=== PATIENT | female | born 1950 | race Caucasian/White ===

== ENCOUNTER 2018-06-13 01:25 | Outpatient (CLI) | payer MEDICARE, OTHER, SELFPAY ==
--- NOTE | 2018-06-13 08:47 | DI.MAMMO_ITS ---
SYMPTOM/DIAGNOSIS: SCREENING, Z13.9 MAMMOGRAMS: Mammograms were interpreted according to the usual protocol including computer analysis with CAD system, tomosynthesis and C view imaging. Comparison is made with exams from 6315-2213. The breasts are composed of scattered fibroglandular densities. No suspicious masses or suspicious microcalcifications are seen. There has been no significant change. IMPRESSION: Category 1B, negative mammogram. Routine screening is recommended. SA ASSESSMENT OF FINDINGS: Negative. Category 1. Patient will receive a letter notifying them of these results. BI-RADS category B. There are scattered areas of fibroglandular density.
== END 2018-06-13 01:45 ==
PROVIDERS: PCP Nurse Practitioner Family; Visit Provider Nurse Practitioner Family
DX: Z12.31 Encounter for screening mammogram for malignant neoplasm of breast (principal)
CPT/HCPCS: 77063; 77067

== ENCOUNTER 2018-06-19 10:30 | Outpatient (REF) | payer MEDICARE, OTHER, SELFPAY ==
--- NOTE | 2018-06-19 09:15 | SKI_PTH ---
PATIENT: La Watson LOC: [facility] U#:[id number] AGE/SX: 68/F ROOM: RE06/19/[address]: Marina Yi : 1950 BED: DIS: 06/19/2018 SPEC #: [id number] RECD: 06/19/18 13:03 STATUS: DAWN MENDEZ #: [id number] KAYLIN: 06/19/18 09:[address]: Marina Yi DEPT: Surgical Specimen RECD BY: Flor Cadena Tissues: 1 - SKIN BIOPSY(SHAVE/PUNCH) Procedures: SKIN LEVEL 4 Comments: [id number]
== END 2018-06-19 10:50 ==
LOC: NCHCN 10:30
PROVIDERS: PCP Nurse Practitioner Family; Visit Provider Nurse Practitioner Family
DX: L43.8 Other lichen planus (principal)
CPT/HCPCS: 88305

== ENCOUNTER 2018-07-23 12:10 | Outpatient (CLI) | payer MEDICARE, OTHER, SELFPAY ==
--- NOTE | 2018-07-23 12:56 | DI.RAD_ITS ---
SYMPTOMS/DIAGNOSIS: ACUTE LOW BACK PAIN, M54.5 LUMBAR SPINE: AP, lateral and bilateral oblique views of the lumbar spine were obtained. There are five lumbar type vertebral bodies. There is normal alignment. No spondylolysis or spondylolisthesis is seen. There is mild disc space narrowing at L 1 - 2 and L 2 - 3. Endplate osteophytes are present throughout the lumbar spine. No acute fractures or subluxations are seen. There are degenerative changes of the facets seen at L 4 - 5 and L 5 - S 1. IMPRESSION: Moderate degenerative changes in the lumbar spine.
== END 2018-07-23 12:30 ==
PROVIDERS: PCP Nurse Practitioner Family; Visit Provider Internal Medicine
DX: M54.5 Low back pain (principal); M47.816 Spondylosis without myelopathy or radiculopathy, lumbar region
CPT/HCPCS: 72110

== ENCOUNTER 2018-08-30 12:57 | Outpatient (REF) | payer OTHER, SELFPAY ==
[2018-08-30 21:37] LABS: ALT 20 U/L (12-78); AST 15 U/L (15-37); Albumin 3.6 g/dL (3.4-5.0); Alkaline Phosphatase 84 U/L (46-116); Anion Gap 11.1 mmol/L (3-11); BUN 18 mg/dL (7-18); Bilirubin, Total 0.7 mg/dL (0.2-1.0); CO2 25.9 mmol/L (21.0-32.0); CREATININE 0.69 mg/dL (0.55-1.02); Calcium 9.6 mg/dL (8.5-10.1); Chloride 100 mmol/L (98-107); Glucose 179 mg/dL (70-100); Potassium 4.8 mmol/L (3.5-5.1); Sodium 137 mmol/L (136-145); Total Protein 6.9 g/dL (6.4-8.2)
== END 2018-08-30 13:17 ==
LOC: NCHCN 12:57
PROVIDERS: PCP Nurse Practitioner Family; Visit Provider Nurse Practitioner Family
DX: R19.7 Diarrhea, unspecified (principal); E07.89 Other specified disorders of thyroid; E11.9 Type 2 diabetes mellitus without complications; M47.9 Spondylosis, unspecified; E78.5 Hyperlipidemia, unspecified; G43.109 Migraine with aura, not intractable, without status migrainosus
CPT/HCPCS: 80053

== ENCOUNTER 2019-01-24 08:01 | Emergency (ER) | payer OTHER, SELFPAY ==
[2019-01-24 08:11] VITALS: BP 129/57; PULSE 71; RESP 18; TEMP 36.6; O2SAT 98
[2019-01-24 08:34] LABS: Bilirubin Negative (Negative); Blood Negative (Negative); Clarity Clear; Glucose Negative (Negative); Ketones Negative (Negative); Leukocyte Esterase Negative (Negative); Nitrite Negative (Negative); Specific Gravity 1.025 (1.005-1.025); Urobilinogen 0.2 EU/dL (Up TO 0.2); pH 5.5 (5-8)
--- NOTE | 2019-01-24 08:42 | ED.GENADUL_ITS ---
Discharge Plan Disposition Patient Disposition: HOME Condition: Stable Discharge Details Chief Complaint: Abd Prob Clinical Impression: Abdominal pain Primary Care Provider: Marina Yi ED Provider: Moe Helms Home Meds and New Rx's Prescriptions: No Action aspirin [Aspir-81] 81 MG tablet,delayed release (DR/EC) 81 mg PO DAILY RF: 0 multivitamin [Multi-Day] 1 EACH tablet RF: 0 ibuprofen 600 MG tablet 600 mg PO Q6H PRN PRN (Reason: Pain) Qty: 25 RF: 0 vitamin E 400 unit Capsule 400 unit PO DAILY RF: 0 enalapril maleate 5 mg Tablet 5 mg PO DAILY RF: 0 glipizide 10 mg Tablet 10 mg PO BID RF: 0 cyanocobalamin (vitamin B-12) [Vitamin B-12] 1,000 mcg Tablet 1,000 mcg PO DAILY RF: 0 calcium carbonate [Calcium 500] 500 mg calcium (1,250 mg) Tablet 500 mg PO DAILY RF: 0 metformin 1,000 mg Tablet 1,000 mg PO BID RF: 0 lovastatin 20 mg Tablet 20 mg PO DAILY RF: 0 cholecalciferol (vitamin D3) [Vitamin D3] 1,000 unit Capsule 1,000 unit PO DAILY RF: 0 Discharge Instructions Instructions: Abdominal Pain (ED) Additional Instructions: Your cat scan and lab work did not show any concerning findings. You did have lung nodules which your primary care provider should be made aware of this as you should have future imaging you can take 1000mg tylenol and 600mg ibuprofen every 6 hours for pain as needed if you have severe worsening pain, pain in the upper abdomen or persistent vomit return to the emergency department Medical Decision Making 68 yo female with hx of DM, hld, who comes in with 2 weeks of llq and was tx'd with cipro/flagyl which she finished on 01/19 and despite this pain continues so came here. Denies fevers, recent travel, has had loose stools this entire time. She has tenderness with mild guarding in llq without pain elsehwere. No hemorrhoids on rectal exam, has mild erythema around rectal opening that she has been using desytn for and appers likely due to diarrhea, doubt cellulitis. Given continued pain will obtain labs and imaging to eval for abscess vs continued diverticulitis labs unremarkable, ct shows no acute findings, nonemergent findings of lung nodule, diverticula and gallstones per Dr. Mcintosh. She remains stable, pain has improved, mild llq pain. Advised f/u with pcp and return precautions given. pt was given ceftriaxone by mistake this was supposed to be for a different patient, no indication for continued abx. Differential Diagnosis diverticulitis, colitis, pancreatitis Imaging Data Radiologic Study: Attestation: I personally reviewed and interpreted this imaging study as follows: Imaging: CT Scan Radiologist's impression: no acute findings Lab Data Lab results reviewed: Yes I reviewed the patient's lab results. HPI General Mode of arrival: ambulatory . Date/Time Provider Initiated Documentation: 01/24/19 08:14 . Limitations to Documentation: no limitations . Information obtained by: patient . History of Present Illness 68 year old F presents to the emergency department with the chief complaint of left lower abdominal pain, described as moderate, Quality is described as stabbing, and is localized to the abdomen. Patient reports no radiation. Patient started experiencing this week(s) (2) and it has been constant. No relieving factors improve symptom(s), No exacerbating factors reported . Patient notes other (loose stools). Patient did receive the following treatments prior to arrival, none Related Data Home Medications Medication Instructions Recorded Confirmed aspirin [Aspir-81] 81 mg PO DAILY 07/12/14 01/24/19 ibuprofen 600 mg PO Q6H PRN PRN #25 tablet 01/06/16 multivitamin [Multi-Day Vitamins] 01/06/16 calcium carbonate [Calcium 500] 500 mg PO DAILY 01/24/19 01/24/19 cholecalciferol (vitamin D3) 1,000 unit PO DAILY 01/24/19 01/24/19 [Vitamin D3] cyanocobalamin (vitamin B-12) 1,000 mcg PO DAILY 01/24/19 01/24/19 [Vitamin B-12] enalapril maleate 5 mg PO DAILY 01/24/19 01/24/19 glipizide 10 mg PO BID 01/24/19 01/24/19 lovastatin 20 mg PO DAILY 01/24/19 01/24/19 metformin 1,000 mg PO BID 01/24/19 01/24/19 vitamin E 400 unit PO DAILY 01/24/19 01/24/19 Previous Rx's Medication Instructions Recorded ibuprofen 600 mg PO Q6H PRN PRN #25 tablet 01/06/16 Allergies Allergy/AdvReac Type Severity Reaction Status Date / Time meperidine HCl [From Demerol] Allergy Severe Pt states Unverified 01/24/19 08:24 caused hospitalization lisinopril AdvReac Intermediate cough Unverified 01/24/19 08:24 General Stated Complaint: Abd Prob JOE: 3 Review of Systems Review of Systems All systems reviewed & are unremarkable except as noted in HPI and below Constitutional Denies chills, Denies fever(s) and Denies weakness Cardiovascular Denies chest pain and Denies dyspnea Respiratory Denies cough and Denies dyspnea Gastrointestinal Denies nausea and Denies vomiting Musculoskeletal Denies joint swelling Neurologic Denies weakness PFSH Social History Smoking/Tobacco Use Status: Never Alcohol Intake: never Drug use: Never Do you feel safe at home: Yes Do you feel safe in your relationship?: Yes Exam Const General: no acute distress Orientation: alert HENMT Head: normal to inspection Ears: external ears normal General nose exam: external nose normal Mouth: moist mucous membranes Eyes General: appearance normal, both eyes and all related structures Neck Neck: normal visual inspection Resp Effort & Inspection: normal respiratory effort and able to speak in complete sentences Cardio Rate: regular rate GI Palpation: soft Skin General skin exam: no rashes or lesions noted Neuro General: alert and oriented x3 Extrem General: normal to inspection Psych Mental Status: mental status grossly normal Course Vital Signs Temperature 36.6 C 01/24/19 08:11 Pulse 71 01/24/19 08:11 Respiratory Rate 18 01/24/19 08:11 Blood Pressure 129/57 L 01/24/19 08:11 Pulse Oximetry 98 01/24/19 08:11 Temperature 36.6 C 01/24/19 08:11 Temperature Source Temporal Artery Scan 01/24/19 08:11 Pulse 71 01/24/19 08:11 Respiratory Rate 18 01/24/19 08:11 Respiratory Effort Non-Labored 01/24/19 08:19 Blood Pressure 129/57 L 01/24/19 08:11 Blood Pressure Position Supine 01/24/19 08:11 Pulse Oximetry 98 01/24/19 08:11 Oxygen Delivery Method Room Air 01/24/19 08:11 Oxygen Flow Rate 0 01/24/19 08:11 Pain Level 7 01/24/19 08:11 Lab/Test Results Lab/Test Results: Laboratory Tests Range/Units 01/24/19 08:25 Urine Color (Yellow) Yellow Urine Clarity Clear Urine pH (5-8) 5.5 Ur Specific [place] (1.005-1.025) 1.025 Urine Protein (Negative) mg/dL Negative Urine Ketones (Negative) mg/dL Negative Urine Blood (Negative) Negative Urine Nitrite (Negative) Negative Urine Bilirubin (Negative) Negative Urine Urobilinogen (Up TO 0.2) EU/dL 0.2 Ur Leukocyte Esterase (Negative) Negative Urine Glucose (Negative) mg/dL Negative
[2019-01-24] MEDS: Normal Saline 1,000 ML 1000 ML IV (09:00)
[2019-01-24] MEDS: Ketorolac 15 MG/ML VIAL IVP (09:06)
[2019-01-24] MEDS: cefTRIAXone 2 GM/50 ML BAG IVPB (09:08)
[2019-01-24 09:10] LABS: Abs Immature Grans 0.01 k/cumm (0.0-0.09); Absolute Basophil Count 0.06 k/cumm (0.0-0.2); Absolute Eosinophil Count 0.23 k/cumm (0.0-0.7); Absolute Lymphocyte Count 2.24 k/cumm (1.2-3.4); Absolute Monocyte Count 0.61 k/cumm (0.11-0.7); Absolute Neutrophil Count 3.39 k/cumm (1.2-6.7); Basophils % 0.9; Eosinophils % 3.5; HCT 36.9 % (36.0-46.0); Immature Grans % 0.2; Lymphocytes % 34.3; Mean Corp. HGB Concentration 32.5 g/dL (32.0-36.0); Mean Corpuscular Hemoglobin 29.3 pg (27.0-33.0); Monocytes % 9.3; Neutrophils % 51.8; Platelet Count 248 x1000/uL (130-400); RBC Distribution Width 13.1 % (11.7-14.6); White Blood Cell Count 6.54 k/cumm (4.4-10.8)
[2019-01-24 09:29] LABS: ALT 27 U/L (12-78); AST 16 U/L (15-37); Albumin 3.1 g/dL (3.4-5.0); Alkaline Phosphatase 64 U/L (46-116); Anion Gap 10.4 mmol/L (3-11); BUN 11 mg/dL (7-18); Bilirubin, Total 0.5 mg/dL (0.2-1.0); CO2 25.6 mmol/L (21.0-32.0); CREATININE 0.56 mg/dL (0.55-1.02); Calcium 8.4 mg/dL (8.5-10.1); Chloride 104 mmol/L (98-107); Glucose 168 mg/dL (70-100); Lipase 88 U/L (73-393); Magnesium 1.7 mg/dL (1.8-2.4); Potassium 3.9 mmol/L (3.5-5.1); Sodium 140 mmol/L (136-145)
[2019-01-24] MEDS: AZITHROMYCIN 500 MG in Normal Saline 250 ML 250 MG IVPB (09:42)
[2019-01-24] MEDS: Omnipaque 350 MG/ML 100 ML BTL IJ (10:03)
--- NOTE | 2019-01-24 10:10 | DI.CT_ITS ---
SYMPTOM/DIAGNOSIS: LEFT LOWER ABDOMINAL PAIN CT ABDOMEN AND PELVIS: CT scan of the abdomen and pelvis was performed following the uneventful administration of intravenous contrast material. No priors for comparison,. There is a 0.5 cm noncalcified pulmonary nodule in the left lower lobe. Posteriorly there is a 0.5 cm noncalcified pulmonary nodule in the left lower lobe laterally The liver is normal in size. No suspicious hepatic mass is seen. The portal, superior mesenteric and splenic veins are patent. There are stones seen within the gallbladder. No gallbladder wall thickening or biliary ductal dilatation present. The pancreas is unremarkable as are the spleen and adrenal glands. The kidneys show normal and symmetric enhancement. No evidence of a solid renal mass or obstruction is present. The urinary bladder is intact. There is a lobulated contour of the uterus with several calcifications seen. The findings likely reflect degenerating uterine fibroids. The abdominal aorta is of normal caliber with atherosclerosis present. No significant abdominal or pelvic adenopathy, ascites, or pneumoperitoneum is present. There is diverticulosis of the colon but no evidence of acute diverticulitis. There is a large amount of stool seen throughout the colon suggesting constipation. There is a normal appendix present. No evidence of bowel obstruction or inflammation seen. Ther are degenerative changes in the spine. No acute fracture is identified. IMPRESSION: 1. No acute abdominal or pelvic abnormality. 2. Colonic diverticulosis but no evidence of acute diverticulitis 3. Cholelithiasis, no biliary ductal dilatation 4. Two noncalcified pulmonary nodules in the left lower lobe. Follow up i recommended. Correlation with consideration in to the patient's past medial history is recommended including history of smoking. The findings were discussed with the Emergency Department on the date of the examination.
[2019-01-24 10:24] VITALS: BP 138/67; PULSE 71; RESP 18; TEMP 36.5; O2SAT 100
--- NOTE | 2019-01-24 10:41 | NUR.NOTE ---
Nursing Note: Referral faxed to [facility] for follow up. Gloria Márquez.
[2019-01-24 10:50] VITALS: BP 138/67; PULSE 71; RESP 18; TEMP 36.5; O2SAT 100
== END 2019-01-24 10:52 | disposition home or self-care (01) ==
PROVIDERS: Emergency Provider Emergency Medicine; PCP Nurse Practitioner Family
DX: R10.32 Left lower quadrant pain (principal); R19.7 Diarrhea, unspecified; K57.30 Diverticulosis of large intestine without perforation or abscess without bleeding; R91.1 Solitary pulmonary nodule; K80.20 Calculus of gallbladder without cholecystitis without obstruction; E11.9 Type 2 diabetes mellitus without complications
CPT/HCPCS: 36415; 80053; 83690; 96361; 96365; 96375; 99285; 74177; 81003; 83735; 85025; 99284; J0456; J1885; J3490

== ENCOUNTER 2019-06-02 13:42 | Emergency (ER) | payer OTHER, SELFPAY ==
[2019-06-02 13:45] VITALS: BP 126/60; PULSE 71; RESP 16; TEMP 36.6
--- NOTE | 2019-06-02 13:58 | ED.GENADUL_ITS ---
Discharge Plan Disposition Patient Disposition: HOME Condition: Good Discharge Details Chief Complaint: Orthopedic Clinical Impression: Right wrist sprain Primary Care Provider: Marina Yi ED Provider: Griselda Zavala Home Meds and New Rx's Prescriptions: Continued aspirin [Aspir-81] 81 MG tablet,delayed release (DR/EC) 81 mg PO DAILY RF: 0 multivitamin [Multi-Day] 1 EACH tablet RF: 0 ibuprofen 600 MG tablet 600 mg PO Q6H PRN PRN (Reason: Pain) Qty: 25 RF: 0 vitamin E 400 unit Capsule 400 unit PO DAILY RF: 0 enalapril maleate 5 mg Tablet 5 mg PO DAILY RF: 0 glipizide 10 mg Tablet 10 mg PO BID RF: 0 cyanocobalamin (vitamin B-12) [Vitamin B-12] 1,000 mcg Tablet 1,000 mcg PO DAILY RF: 0 calcium carbonate [Calcium 500] 500 mg calcium (1,250 mg) Tablet 500 mg PO DAILY RF: 0 metformin 1,000 mg Tablet 1,000 mg PO BID RF: 0 lovastatin 20 mg Tablet 20 mg PO DAILY RF: 0 cholecalciferol (vitamin D3) [Vitamin D3] 1,000 unit Capsule 1,000 unit PO DAILY RF: 0 Discharge Instructions Instructions: Wrist Sprain (ED) Additional Instructions: Encourage rest, ice, elevation. Tylenol and/or ibuprofen as needed for discomfort. Please continue with brace for pain persist. Please follow-up with primary care for reevaluation next week. Your x-ray reveals osteoarthritis. Your labs are reassuring with no signs of infection, gout or other inflammatory basis. If you develop spreading of the redness, increased pain, fever/chills or other new/worsening symptoms please seek care urgently once again. Referrals: Marina Yi [Primary Care Provider] - Medical Decision Making Patient is a 69-year-old [id number] female, accompanied by her significant other, with chief complaint of right wrist pain. She reports that 3 weeks ago she was playing with the dog when she had an onset of discomfort. Reports the pain was quite mild at that time is progressive and increasing. Has noted to be red and swollen particular on the ulnar side. Denies any fall or direct trauma. Denies any fevers or chills. Has not had a history of gout. Has been using the brace to help with her discomfort. XR reviewed by radiologist: FINDINGS: Three views were obtained. There is marked degenerative change of the carpus. There is marked bony deformity at multiple sites likely due to degenerative c hange. No definite fracture identified, if there is a high clinical suspicion of fracture additional evaluation with CT may be considered Labs reviewed. No white count. CRP is normal. Uric acid is normal. ESR normal. Discussed the findings with the patient. Feel this likely sprain in the setting of osteoarthritis. As the pain is persistently been increasing this does not sound consistent with a fracture she is already 3 weeks out. I reexamined her skin and the area that is initially receiving his redness and the site looks more ecchymotic and she reports this moment unchanged for the past 3 weeks. Exam is not consistent with cellulitis. No evidence of an abscess. Advised likely sprain. Encourage rest, ice, elevation. Tylenol and ibuprofen as needed for discomfort. Patient is now describing that the brace she has is more of a wrap, we will place her in a universal wrist splint. I encouraged that she follow-up with primary care if not improving in 1 week. We discussed new/worsening symptoms when to seek care urgently once again. All of her questions and concerns were addressed and she is in agreement with this plan. HPI General Mode of arrival: ambulatory . Date/Time Provider Initiated Documentation: 06/02/19 13:43 . Limitations to Documentation: no limitations . Information obtained by: patient, family () and RN notes reviewed . History of Present Illness 69 year old F presents to the emergency department with the chief complaint of Right wrist pain, described as moderate, with intensity rated at 7. Quality is described as aching, and is localized to the right and upper extremity. Patient reports no radiation. Patient started experiencing this week(s) (3) and it has been constant. Immobilization improves symptom(s), Movement worsens symptoms . Patient notes no other symptoms.. Patient did receive the following treatments prior to arrival, splint Related Data Home Medications Medication Instructions Recorded Confirmed aspirin [Aspir-81] 81 mg PO DAILY 07/12/14 06/02/19 ibuprofen 600 mg PO Q6H PRN PRN #25 tablet 01/06/16 multivitamin [Multi-Day] 01/06/16 calcium carbonate [Calcium 500] 500 mg PO DAILY 01/24/19 06/02/19 cholecalciferol (vitamin D3) 1,000 unit PO DAILY 01/24/19 06/02/19 [Vitamin D3] cyanocobalamin (vitamin B-12) 1,000 mcg PO DAILY 01/24/19 06/02/19 [Vitamin B-12] enalapril maleate 5 mg PO DAILY 01/24/19 01/24/19 glipizide 10 mg PO BID 01/24/19 01/24/19 lovastatin 20 mg PO DAILY 01/24/19 01/24/19 metformin 1,000 mg PO BID 01/24/19 06/02/19 vitamin E 400 unit PO DAILY 01/24/19 06/02/19 Previous Rx's Medication Instructions Recorded ibuprofen 600 mg PO Q6H PRN PRN #25 tablet 01/06/16 Allergies Allergy/AdvReac Type Severity Reaction Status Date / Time meperidine HCl [From Demerol] Allergy Severe Pt states Unverified 06/02/19 13:50 caused hospitalization lisinopril AdvReac Intermediate cough Unverified 06/02/19 13:50 General Stated Complaint: Orthopedic JOE: 4 Review of Systems Constitutional Constitutional: Reports as per HPI, Denies chills, Denies fever(s), Denies headache(s) and Denies weakness ENT Ears, Nose, Mouth, and Throat: Denies headache(s) Cardiovascular Cardiovascular: Reports as per HPI Respiratory Respiratory: Reports as per HPI and Denies cough Musculoskeletal Musculoskeletal: Reports as per HPI and Denies tingling Integumentary/Breasts Skin/Breast: Reports as per HPI, Denies rash and Denies wounds Neurologic Neurologic: Reports as per HPI, Denies headache(s), Denies tingling, Denies paresthesias and Denies weakness [facility] Social History Smoking/Tobacco Use Status: Never Alcohol Intake: never Drug use: Never Substance use type: does not use Do you feel safe at home: Yes Do you feel safe in your relationship?: Yes Exam Const General: cooperative, healthy appearing, comfortable, no acute distress, well developed and well groomed Nutritional Appearance: average body habitus and well nourished Orientation: alert and awake Resp Effort & Inspection: normal respiratory effort, able to speak in complete sentences and no respiratory distress Auscultation: clear to auscultation bilaterally Cardio Rate: regular rate Rhythm: regular rhythm Heart Sounds: S1 normal and S2 normal Skin General skin exam: erythema (Small area of erythema over the ulnar prominence right wrist. No warmth. ) Neuro General: alert and awake Cognition: normal cognition Speech: speech normal Gait: normal gait Motor: muscle tone normal throughout Sensory Exam: no sensory deficits noted Extrem Right upper extremity: full ROM, normal capillary refill, elbow/forearm Details: normal to inspection, normal ROM and distal pulses intact; no tenderness, no swelling, no unusual warmth, no abrasions, no ecchymosis, no crepitus and no deformity, wrist Details: tenderness Location: of the distal ulna and of the dorsal wrist; not of the distal radius and not of the anatomic snuffbox, swelling Location: of the dorsal wrist (Ulna), normal ROM, normal vascular exam, radial pulse present and ulnar pulse present; no unusual warmth, no abrasions, no lacerations, no ecchymosis, no crepitus and no deformity and hand Details: normal to inspection, normal capillary refill, neuromotor exam normal, neurosensory exam normal, tendon exam normal and normal ROM of fingers; no unusual warmth, no swelling and no ecchymosis; abnormal to inspection Psych Appearance: grossly normal and well kempt Mental Status: mental status grossly normal Speech and Movement: speech and movement normal Course Vital Signs Vital signs: Vital Signs Temperature 36.6 C 06/02/19 13:45 Pulse 71 06/02/19 13:45 Respiratory Rate 16 06/02/19 13:45 Blood Pressure 126/60 06/02/19 13:45 Temperature 36.6 C 06/02/19 13:45 Temperature Source Temporal Artery Scan 06/02/19 13:45 Pulse 71 06/02/19 13:45 Respiratory Rate 16 06/02/19 13:45 Respiratory Effort 06/02/19 13:45 Blood Pressure 126/60 06/02/19 13:45 Blood Pressure Position Sitting 06/02/19 13:45 Oxygen Delivery Method Room Air 06/02/19 13:45 Oxygen Flow Rate 0 06/02/19 13:45 Pain Level 7 06/02/19 13:45 Comment 06/02/19 13:45
--- NOTE | 2019-06-02 14:04 | DI.RAD_ITS ---
EXAM: XR WRIST RT COMPLETE INDICATION: ulnar pain. COMPARISON: No exams were available for comparison TECHNIQUE: 2D digital imaging was performed. FINDINGS: Three views were obtained. There is marked degenerative change of the carpus. There is marked bony deformity at multiple sites likely due to degenerative change. No definite fracture identified, if t here is a high clinical suspicion of fracture additional evaluation with CT may be considered. IMPRESSION:
[2019-06-02 14:27] LABS: Abs Immature Grans 0.01 k/cumm (0.0-0.09); Absolute Basophil Count 0.09 k/cumm (0.0-0.2); Absolute Eosinophil Count 0.28 k/cumm (0.0-0.7); Absolute Lymphocyte Count 2.66 k/cumm (1.2-3.4); Absolute Monocyte Count 0.71 k/cumm (0.11-0.7); Absolute Neutrophil Count 3.56 k/cumm (1.2-6.7); Basophils % 1.2; Eosinophils % 3.8; HCT 38.3 % (36.0-46.0); HGB 12.6 g/dL (12.0-15.5); Immature Grans % 0.1; Lymphocytes % 36.4; Mean Corp. HGB Concentration 32.9 g/dL (32.0-36.0); Mean Corpuscular Hemoglobin 29.6 pg (27.0-33.0); Mean Corpuscular Volume 90.1 fL (80-95); Monocytes % 9.7; Neutrophils % 48.8; Platelet Count 316 x1000/uL (130-400); RBC 4.25 m/cumm (4.00-5.20); RBC Distribution Width 12.5 % (11.7-14.6); White Blood Cell Count 7.31 k/cumm (4.4-10.8)
[2019-06-02 14:45] LABS: ALT 16 U/L (14-59); AST 14 U/L (15-37); Albumin 3.6 g/dL (3.4-5.0); Alkaline Phosphatase 78 U/L (46-116); Anion Gap 12.1 mmol/L (3-11); BUN 17 mg/dL (7-18); Bilirubin, Total 0.5 mg/dL (0.2-1.0); C-Reactive Protein 0.11 mg/dL (0.0-0.3); CO2 23.9 mmol/L (21.0-32.0); CREATININE 0.73 mg/dL (0.55-1.02); Calcium 8.7 mg/dL (8.5-10.1); Chloride 104 mmol/L (98-107); Glucose 133 mg/dL (70-100); Potassium 4.1 mmol/L (3.5-5.1); Sodium 140 mmol/L (136-145); Total Protein 6.9 g/dL (6.4-8.2); Uric Acid 3.5 mg/dL (2.6-6.0)
[2019-06-02 15:12] LABS: ESR 11 mm/hr (0-30)
== END 2019-06-02 15:22 | disposition home or self-care (01) ==
PROVIDERS: Emergency Provider Physician Assistant; PCP Nurse Practitioner Family
DX: S63.501A Unspecified sprain of right wrist, initial encounter (principal); W54.8XXA Other contact with dog, initial encounter
CPT/HCPCS: 36415; 80053; 85652; 99283; 73110; 84550; 85025; 86140; 99282; L3908

== ENCOUNTER 2019-09-18 11:01 | Outpatient (CLI) | payer OTHER, SELFPAY ==
--- NOTE | 2019-09-18 | DI.RAD_ITS ---
EXAM: XR WRIST RT LIMITED INDICATION: pain COMPARISON: XR WRIST RT COMPLETE from 06/02/2019 TECHNIQUE: 2D digital imaging was performed. FINDINGS: There is mild spurring at the distal radius. There is a mild positive ulnar variance. Mild degenera tive changes are seen at the proximal radial ulnar joint. There is narrowing of the lunate-capitate joint. There is no significant dorsal tilt of lunate. Degenerative changes are also seen at the sca phoid and hamate capitate articulations as well as the 1st carpal metacarpal joint. No fracture is i dentified. IMPRESSION: Moderate degenerative changes of multiple locations of the carpal region.
--- NOTE | 2019-09-18 | DI.RAD_ITS ---
EXAM: XR WRIST LT LIMITED INDICATION: comparison with R wrist. COMPARISON: XR WRIST RT LIMITED from 09/18/2019 TECHNIQUE: 2D digital imaging was performed. FINDINGS: The exam was performed for comparison with the right wrist. There is positive ulnar variance. Ther e is some joint space narrowing and mild spurring at the radiocarpal joint. There is narrowing of th e lunate capitate joint. There is narrowing, spurring and sclerosis at the 1st carpal metacarpal tamika nt. IMPRESSION: Degenerative changes, greatest at the 1st carpometacarpal joint.
== END 2019-09-18 11:21 ==
PROVIDERS: PCP Nurse Practitioner Family; Referring Provider Nurse Practitioner Family; Visit Provider Orthopaedic Surgery
DX: M25.531 Pain in right wrist (principal); M77.8 Other enthesopathies, not elsewhere classified
CPT/HCPCS: 99201; 99213; 73100

== ENCOUNTER 2019-10-07 01:58 | Outpatient (CLI) | payer OTHER, SELFPAY ==
--- NOTE | 2019-10-07 | DI.MAMMO_ITS ---
EXAM: MG MAMMO SCREENING CLINICAL HISTORY: SCREENING Z12.31. TECHNIQUE: Bilateral full field digital CC and MLO mammographic images were obtained with 3D tomosyn thesis and utilizing computer aided detection (CAD). COMPARISON: Available for comparison. FINDINGS: Masses/Architectural Distortion: None seen. Scattered stable nodular opacities are seen in the breast s. Microcalcifications: No suspicious pleomorphic-type are seen. Skin Thickening/Nipple Retraction: None. IMPRESSION: 1. No significant interval change with no specific features of malignancy noted. 2. Unless there is more urgent need, screening mammography is recommended, as per [employer] guidelines. BI-RADS Cat 2 - Benign Findings Breast Density - Category B - Scattered areas of fibroglandular density A negative radiographic report should not delay biopsy if a dominant or clinically suspicious mass is present. Up to ten percent of cancers are not identified on mammography. A negative report may reinforce clinical impression. Adenosis and dense breasts may obscure an underlying neoplasm. False positive reports average 6 to 10%. Patient will receive a letter notifying them of these results.
== END 2019-10-07 02:18 ==
PROVIDERS: PCP Nurse Practitioner Family; Visit Provider Nurse Practitioner Family
DX: Z12.31 Encounter for screening mammogram for malignant neoplasm of breast (principal)
CPT/HCPCS: 77063; 77067

== ENCOUNTER 2019-10-07 02:05 | Outpatient (CLI) | payer OTHER, SELFPAY ==
--- NOTE | 2019-10-07 11:52 | DI.MRI_ITS ---
EXAM: MR UPPER JOINT RT WO CLINICAL HISTORY: MRI R WRIST-PAIN S63.091A SUBLUXATION RT WRIST AND HAND. TECHNIQUE: Multiplanar multisequence MRI was performed. COMPARISON: XR WRIST LT LIMITED from 09/18/2019 FINDINGS: There is a split tear of the extensor carpi ulnaris tendon. This occurs at the level of the ulnar sty loid process. There is thickening and intermediate signal seen within the distal extensor carpi ulnar is tendon and fluid within the tendon suggesting tenosynovitis. There is edema seen in the surroundi ng soft tissues. The remaining tendons in the wrist appear unremarkable. Degenerative signal changes are seen at the articular surfaces in the wrist. No evidence of an occult fracture is identified. The TFCC is not visualized at its ulnar attachment site suspicious for tear. The muscles show normal signal and size. The carpal tunnel appears unremarkable. IMPRESSION: 1. Tear of the extensor carpi ulnaris tendon at the level of the ulnar styloid process. 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 2. Degenerative changes seen in the wrist. No evidence of an occult fracture. 3. Findings suspicious for a tear at the ulnar attachment site of the TFCC.
== END 2019-10-07 02:25 ==
PROVIDERS: PCP Nurse Practitioner Family; Visit Provider Orthopaedic Surgery
DX: M25.531 Pain in right wrist (principal); S66.911A Strain of unspecified muscle, fascia and tendon at wrist and hand level, right hand, initial encounter; M65.841 Other synovitis and tenosynovitis, right hand; M19.031 Primary osteoarthritis, right wrist
CPT/HCPCS: 73221

== ENCOUNTER → 2019-10-09 09:36 | Outpatient (BNVA) | payer OTHER, SELFPAY | PROVIDERS: PCP Nurse Practitioner Family; Referring Provider Nurse Practitioner Family; Visit Provider Orthopaedic Surgery | DX: M77.8 Other enthesopathies, not elsewhere classified (principal) | CPT/HCPCS: 99212; 99213 ==

== ENCOUNTER 2019-10-24 09:57 | Outpatient (CLI) | payer OTHER, SELFPAY | END 2019-10-24 10:17 | PROVIDERS: PCP Nurse Practitioner Family; Visit Provider Orthopaedic Surgery | DX: Z01.818 Encounter for other preprocedural examination (principal); M77.8 Other enthesopathies, not elsewhere classified; E11.9 Type 2 diabetes mellitus without complications; Z79.84 Long term (current) use of oral hypoglycemic drugs ==

== ENCOUNTER 2019-10-28 09:25 | Day surgery (SDC) | payer OTHER, SELFPAY ==
[2019-10-28 10:08] VITALS: BP 115/63; PULSE 71; RESP 16; TEMP 36; O2SAT 95
[2019-10-28] MEDS: Lactated Ringers 1,000 ML 80 ML IV (10:35)
[2019-10-28] MEDS: ceFAZolin 1 GM/50 ML BAG IVPB (13:59)
[2019-10-28] MEDS: Bupivacaine 0.5% Pres-Free 30 ML VIAL (14:30)
--- NOTE | 2019-10-28 14:39 | PDOC.DSDIS_ITS ---
Discharge Plan Disposition Patient Disposition: HOME Condition: Good Discharge Details Reason For Visit: Tenolysis ECU tendon R wrist Attending Provider: Dimitrios Rubin Primary Care Provider: Marina Yi Home Meds and New Rx's Prescriptions: New ibuprofen 600 mg tablet 600 mg PO TID Qty: 30 RF: 0 hydrocodone-acetaminophen 5-325 mg tablet 1 tab PO Q6H PRN (Reason: pain) Qty: 7 RF: 0 Continued Jardiance 10 mg tablet 10 mg PO DAILY RF: 0 aspirin [Aspir-81] 81 MG tablet,delayed release (DR/EC) 81 mg PO DAILY RF: 0 multivitamin [Multi-Day] 1 EACH tablet 1 tab PO DAILY RF: 0 ibuprofen 600 MG tablet 600 mg PO Q6H PRN PRN (Reason: Pain) Qty: 25 RF: 0 vitamin E 400 unit Capsule 400 unit PO DAILY RF: 0 enalapril maleate 5 mg Tablet 5 mg PO DAILY RF: 0 glipizide 10 mg Tablet 10 mg PO BID RF: 0 cyanocobalamin (vitamin B-12) [Vitamin B-12] 1,000 mcg Tablet 1,000 mcg PO DAILY RF: 0 calcium carbonate [Calcium 500] 500 mg calcium (1,250 mg) Tablet 500 mg PO DAILY RF: 0 metformin 1,000 mg Tablet 1,000 mg PO BID RF: 0 lovastatin 20 mg Tablet 20 mg PO DAILY RF: 0 cholecalciferol (vitamin D3) [Vitamin D3] 1,000 unit Capsule 1,000 unit PO DAILY RF: 0 Discharge Instructions Additional Instructions: Try to elevate R hand above heart level as much as possible overnite tonite. Wiggle fingers R hand 10 times/hr when awake. Keep dressings and splint dry and in place until return. Return to 's office in one week. Take ibuprofen 3 times/day for 10 days as prescribed to decrease swelling and inflammation. Take hydrocodone for breakthru pain, if needed. Referrals: Dimitrios Rubin MD [ [facility] STAFF PHYSICIAN] - (F/u in one week.) Equipment/Supplies: Splint Activity:: Activity as Tolerated Remove Dressings/Wound Care:: Do Not Remove Shower/Bathe:: Cover Diet:: As Tolerated Discharge Orders Discharge Orders: Discharge Order (Routine); Ordered 10/28/19 Ordered By: Dimitrios Rubin
[2019-10-28 15:20] VITALS: BP 102/56; PULSE 71; RESP 18; TEMP 36.1; O2SAT 97
--- NOTE | 2019-10-29 16:34 | ROE_ITS ---
DATE OF PROCEDURE: October 28, 2019 PREOPERATIVE DIAGNOSIS: Tenosynovitis of the extensor carpi ulnaris tendon on the right wrist. POSTOPERATIVE DIAGNOSIS: Same. PROCEDURE: Release of the compartment holding the extensor carpi ulnaris tendon, right wrist (tenoly sis) and debridement of tendon and synovectomy. ANESTHESIA: IV Regional. SURGEON: Dimitrios Rubin M.D. INDICATIONS: This is a 69-year-old white female who presented with acute ulnar-sided right wrist daphney n in May of 2019. She thinks she hurt her wrist while playing with her dog. The pain slowly has gotten worse over the ensuing months. She's developed some localized swelling around the distal uln a on the dorsum of the wrist as well. Her pain was not relieved with splinting. MRI scan was obtain ed to evaluate the amount of swelling. The MRI scan showed excess fluid around the extensor carpi ul naris tendon, but no bony mass seen. I felt that she had tenosynovitis of the extensor carpi ulnaris tendon as it passes through its extensor compartment on the dorsum of the distal ulna. I thought debra shaffer would benefit by decompressing the compartment with exploration of the tendon, since she has not go tten any relief for six months. The risks and complications of the procedure were explained to the p atient in detail preoperatively. PROCEDURE: The patient was taken to the operating room on 10/28/2019. She was placed supine on the op erating table and an IV regional anesthetic was administered to the right upper extremity. Once good anesthesia was obtained, the right hand, wrist and forearm were prepped and draped free in the usual sterile fashion. A longitudinal incision was made, centered over the compartment of the extensor carpi ulnaris on the dorsum of the ulna. The incision was distal to the ulna and carried proximally about three inches in length. The incision was carried down through the skin and subcu, down to the extensor carpi ulnari s tendon. This was located proximally in the incision. I traced the tendon to its extensor compartm ent. I then incised the extensor compartment, completely decompressing the tendon. I was surprised to find moderate synovitis around the tendon. There was actually some degeneration of some of the te ndinous tissue as well. I sharply excised the abnormal tendon, or at least the areas of tendon degen eration, so that only healthy ECU tendon remained. I then used a small rongeur to excise the excess synovium. At the conclusion of the procedure the tendon was healthy in appearance and thoroughly dec ompressed. The wound was irrigated with saline solution. The wound margins were infiltrated with 0. 5% Marcaine with an epinephrine solution. The skin edges were approximated with interrupted #4-0 nyl on sutures. The wound was dressed with Xeroform gauze, sterile gauze 4x4's, an ABD pad, wrapped with a Kerlix bandage and then wrapped with a 3-inch PURVI bandage. She was then placed in a commercial co ckup wrist splint to immobilize the wrist. The patient's anesthesia was reversed without complicatio ns. She was discharged to the recovery room in good condition. The patient was discharged home from the Day Surgery Unit when fully recovered from her IV regional a nesthesia. She was given instructions to keep her splint and dressings intact until she follows up i n my office in one week. She was encouraged to wiggle her fingers of the right hand ten times an anne r while awake to prevent swelling. She will take ibuprofen three times a day for ten days to decreas e swelling and inflammation. She will take Hydrocodone 5/325, one q6h p.r.n. for breakthrough pain.
== END 2019-10-28 16:13 | disposition home or self-care (01) ==
PROVIDERS: PCP Nurse Practitioner Family; Visit Provider Orthopaedic Surgery
PROC: (CPT 25000; principal; 2019-10-28 10:30)
DX: M65.831 Other synovitis and tenosynovitis, right forearm (principal)
CPT/HCPCS: 25295; 11043; J0690; J1885; J2250; J2704; L3908

== ENCOUNTER → 2019-11-05 10:40 | Outpatient (BNVA) | payer OTHER, SELFPAY | PROVIDERS: PCP Nurse Practitioner Family; Referring Provider Nurse Practitioner Family; Visit Provider Orthopaedic Surgery | DX: Z47.89 Encounter for other orthopedic aftercare (principal); M77.8 Other enthesopathies, not elsewhere classified ==

== ENCOUNTER → 2019-11-12 10:44 | Outpatient (BNVA) | payer OTHER, SELFPAY | PROVIDERS: PCP Nurse Practitioner Family; Referring Provider Nurse Practitioner Family; Visit Provider Orthopaedic Surgery | DX: Z47.89 Encounter for other orthopedic aftercare (principal); M77.8 Other enthesopathies, not elsewhere classified ==

== ENCOUNTER → 2019-12-10 10:27 | Outpatient (BNVA) | payer OTHER, SELFPAY | PROVIDERS: PCP Nurse Practitioner Family; Referring Provider Nurse Practitioner Family; Visit Provider Orthopaedic Surgery | DX: Z47.89 Encounter for other orthopedic aftercare (principal); M77.8 Other enthesopathies, not elsewhere classified ==

== ENCOUNTER 2020-03-05 09:30 | Outpatient (CLI) | payer OTHER, SELFPAY ==
--- NOTE | 2020-03-05 | DI.CT_ITS ---
EXAM: CT ABDOMEN PELVIS WO/W CLINICAL HISTORY: GROSS HEMATURIA, R31.0 TECHNIQUE: COMPARISON: CT CT ABDOMEN PELVIS W from 01/24/2019 FINDINGS: CT examination of the abdomen and pelvis was performed utilizing CT urogram protocol. Images obtaine d through the lung bases are unremarkable. The liver and spleen are unremarkable in appearance. Not e is made of cholelithiasis. No biliary dilatation. No pancreatic abnormality. Abdominal aorta is of normal diameter and major visceral branches appear intact. No significant abdominal wall hernia. No significant abdominal or pelvic adenopathy. Neck Band Maker structures unremarkable for age with presumed calcified uterine fibroids Appendix appears normal. No evidence of diverticulitis or bowel obstruction. Adrenals appear normal bilaterally. There is no evidence of nephrolithiasis, hydronephrosis, or renal mass on either side. No ureteral c alcification identified. There are numerous pelvic phleboliths no intraureteral calculus. The urina ry bladder has a markedly thickened wall, this is a nonspecific finding but could be associated with cystitis. IMPRESSION: No abnormality of the upper urinary tracts identified. Marked bladder wall thickening seen. Please correlate clinically regarding the possibility of cystitis. Neoplastic process of the bladder not ex cluded on the basis of this examination.
[2020-03-05 12:58] LABS: Abs Immature Grans 0.02 k/cumm (0.0-0.09); Absolute Basophil Count 0.06 k/cumm (0.0-0.2); Absolute Eosinophil Count 0.08 k/cumm (0.0-0.7); Absolute Monocyte Count 0.75 k/cumm (0.11-0.7); Basophils % 0.5; Eosinophils % 0.7; HCT 37.7 % (36.0-46.0); HGB 12.3 g/dL (12.0-15.5); Immature Grans % 0.2 %; Mean Corp. HGB Concentration 32.6 g/dL (32.0-36.0); Mean Corpuscular Hemoglobin 29.5 pg (27.0-33.0); Mean Corpuscular Volume 90.4 fL (80-95); Mean Platelet Volume 11.2 fL (8.0-11.0); Monocytes % 6.2; Neutrophils % 75.4; Platelet Count 285 x1000/uL (130-400); RBC 4.17 m/cumm (4.00-5.20); White Blood Cell Count 12.03 k/cumm (4.4-10.8)
[2020-03-05 12:59] LABS: Absolute Lymphocyte Count 2.05 k/cumm (1.2-3.4); Absolute Neutrophil Count 9.07 k/cumm (1.2-6.7)
[2020-03-05 13:38] LABS: ALT 20 U/L (14-59); AST 20 U/L (15-37); Albumin 3.6 g/dL (3.4-5.0); Alkaline Phosphatase 72 U/L (46-116); BUN 14 mg/dL (7-18); Bilirubin, Total 0.7 mg/dL (0.2-1.0); CREATININE 0.64 mg/dL (0.55-1.02); Chloride 102 mmol/L (98-107); Glucose 240 mg/dL (74-106); Potassium 3.8 mmol/L (3.5-5.1); Sodium 139 mmol/L (136-145); Total Protein 6.3 g/dL (6.4-8.2)
[2020-03-05] MEDS: Omnipaque 350 MG/ML 100 ML BTL IJ (14:20)
[2020-03-05] MEDS: Normal Saline Flush 10 ML SYR IVP (14:21)
[2020-03-05] MEDS: Normal Saline - Diluent 50 ML VIAL IV (14:21)
== END 2020-03-05 09:50 ==
LOC: LBO 10:22 → DI 11:56
PROVIDERS: PCP Nurse Practitioner Family; Visit Provider Nurse Practitioner Family
DX: R31.0 Gross hematuria (principal); K80.20 Calculus of gallbladder without cholecystitis without obstruction; D25.9 Leiomyoma of uterus, unspecified; N32.89 Other specified disorders of bladder
CPT/HCPCS: 36415; 80053; 87077; 74178; 85025; 87086; 87186; J3490

== ENCOUNTER 2020-03-05 10:51 | Outpatient (REF) | payer OTHER, SELFPAY ==
--- NOTE | 2020-03-05 09:15 | PAPNONF_PTH ---
PATIENT: La Watson LOC: [facility]#:[id number] AGE/SX: 69/F ROOM: RE03/05/[address]: Marina Yi : 1950 BED: DIS: 03/05/2020 SPEC #: [id number] RECD: 03/06/20 12:48 STATUS: DAWN REFaviola #: [id number] KAYLIN: 03/05/20 09:[address]: Marina Yi DEPT: [facility] Cytology RECD BY: Flor Cadena Tissues: 1 - BODY FLUID CYTO(SPUTUM/URINE)UV Procedures: BODY FLUID CYTO(URINE/SPUTUM) Comments: [id number] (TOTAL VOLUME = 20 ml's) (20 ml's URINE & 20 ml's CYTOLYT ADDED)
== END 2020-03-05 11:11 ==
LOC: NCHCN 10:51
PROVIDERS: PCP Nurse Practitioner Family; Visit Provider Nurse Practitioner Family
DX: R31.0 Gross hematuria (principal)
CPT/HCPCS: 88104

== ENCOUNTER 2020-03-05 10:53 | Outpatient (REF) | payer OTHER, SELFPAY | END 2020-03-05 11:13 | LOC: LBN 10:53 | PROVIDERS: PCP Nurse Practitioner Family; Visit Provider Nurse Practitioner Family | DX: R69 Illness, unspecified (principal) | CPT/HCPCS: 87086 ==

== ENCOUNTER → 2020-03-25 09:18 | Outpatient (BNVA) | payer OTHER, SELFPAY | PROVIDERS: PCP Nurse Practitioner Family; Referring Provider Nurse Practitioner Family; Visit Provider Nurse Practitioner Gerontology | DX: R31.29 Other microscopic hematuria (principal); N39.0 Urinary tract infection, site not specified; E11.9 Type 2 diabetes mellitus without complications; Z79.84 Long term (current) use of oral hypoglycemic drugs | CPT/HCPCS: 81003; 99204; 99215 ==

== ENCOUNTER 2020-04-01 19:11 | Outpatient (REF) | payer OTHER, SELFPAY | END 2020-04-01 19:31 | LOC: NCHCN 19:11 | PROVIDERS: PCP Nurse Practitioner Family; Visit Provider Physician Assistant | DX: R31.0 Gross hematuria (principal) | CPT/HCPCS: 87077; 87086; 87186 ==

== ENCOUNTER → 2020-05-13 08:35 | Outpatient (BNVA) | payer OTHER, SELFPAY | PROVIDERS: PCP Nurse Practitioner Family; Referring Provider Nurse Practitioner Family; Visit Provider Nurse Practitioner Gerontology | DX: N39.0 Urinary tract infection, site not specified (principal); E11.9 Type 2 diabetes mellitus without complications | CPT/HCPCS: 81003; 99213 ==

== ENCOUNTER 2020-05-13 11:04 | Outpatient (REF) | payer OTHER, SELFPAY | END 2020-05-13 11:24 | LOC: LBN 11:04 | PROVIDERS: PCP Nurse Practitioner Family; Visit Provider Nurse Practitioner Gerontology | DX: N39.0 Urinary tract infection, site not specified (principal) | CPT/HCPCS: 87086 ==

== ENCOUNTER 2020-12-10 02:23 | Outpatient (CLI) | payer OTHER, SELFPAY ==
--- NOTE | 2020-12-10 | DI.CT_ITS ---
EXAM: CT CHEST W CLINICAL HISTORY: PULMONARY NODULE,J98.4. TECHNIQUE: Multi planar reconstructions were performed. CONTRAST MATERIAL: Omnipaque 350; 75 cc COMPARISON: CT CT ABDOMEN PELVIS W from 01/24/2019 FINDINGS: CHEST: LUNGS: In the left lower lobe the previously described 2 subpleural noncalcified nodules are again no atd and appear unchanged in size, both measuring approximately 5-6 millimeters.. No other left lung nodules noted. Mild infiltrate in the lingular segment of the left lung is unchanged. In the opposite-right lung there is a 3 millimeter subpleural nodule in the superior segment of the r ight lower lobe (series 2/image 27). There are no pleural effusions There are no significant focal findings in trachea and mainstem bronchi. MEDIASTINUM: There is no hilar nor mediastinal adenopathy. Visualized thyroid unremarkable. CARDIAC: Heart size is normal. There is no pericardial effusion.Caliber of the thoracic aorta is wit hin normal limits. VISUALIZED UPPER ABDOMEN:There is a 10 x 10 millimeter nodule in the left adrenal gland, unchanged fr om January 2019 and probably a benign adenoma. Opposite-right adrenal gland remains unremarkable in dary earance. OSSEOUS: No significant osseous lesions.. IMPRESSION: 1. Stable appearance of the 2 sub pleural nodules in left lower lobe described on the uppermost image s of a abdominal CT scan of January 2019. These have not increased in size. 2. There is a 3 millimeters subpleural nodule in the superior segment of the right lower lobe which i s above the level of the images of the abdominal CT scan of January 2019. To ensure stability recommend repeat CT scan in 6 months. This follow-up scan can be performed without IV contrast. 3. Stable benign-appearing 10 millimeter nodule in the left adrenal gland unchanged from January 2019 an d therefore probably benign adenoma. RADIATION DOSE DELIVERED: 416.62mGy.cm Total DLP DATA REPOSITORY: All CT scans at this facility are submitted to the National Radiology Data Registry (NRDR) Dose Index Registry (DIR) with the [employer] (A[employer]). RADIATION OPTIMIZATION: All CT scans at this facility use at least one of these dose optimization te chniques: automated exposure control; mA and/or kV adjustment per patient size (includes targeted exa ms where dose is matched to clinical indication); or iterative reconstruction.
--- NOTE | 2020-12-10 | DI.MAMMO_ITS ---
EXAM: MG MAMMO SCREENING CLINICAL HISTORY: SCREENING, Z12.31. TECHNIQUE: Bilateral full field digital CC and MLO mammographic images were obtained with 3D tomosyn thesis and utilizing computer aided detection (CAD). COMPARISON: Prior mammograms dating back to 2011, the most recent being September 2019. FINDINGS: No new significant radiograph findings in the right breast. There is a stable nodule located anterolaterally in left breast. Centrally in the left breast approximately 12 o'clock position there is an asymmetric density which i s located approximately 7 cm in from the nipple, more evident than previous. Spot compression views and possible ultrasound recommended. There are no malignant-appearing microcalcification groups in t his region or elsewhere in either breast. There is no significant architectural distortion nor skin thickening-retraction. IMPRESSION: 1. No radiographic evidence of malignancy in the right breast. 2. Left breast asymmetric density as described above. Spot compression views and possible ultrasound recommended. BI-RADS Category 0 - Assessment Incomplete: Need additional imaging evaluation Breast Density - Category B - Scattered areas of fibroglandular density Breast density Category C or D implies that the patient has dense breast tissue. Dense breast tissue can make it harder to find cancer on a mammogram. Dense breast tissue is also associated with an incr eased risk of breast cancer. This information about the result of the mammogram report was provided to the patient to raise their awareness. Use this report when you speak with the patient about their risks for breast cancer, which includes their family history. At that time, you may recommend additional screening tests (Ultrasoun d or MRI) as these tests may add significant information. A negative radiographic report should not delay biopsy if a dominant or clinically suspicious mass is present. Up to ten percent of cancers are not identified on mammography. A negative report may reinforce clinical impression. Adenosis and dense breasts may obscure an underlying neoplasm. False positive reports average 6 to 10%. Patient will receive a letter notifying them of these results.
[2020-12-10 14:33] LABS: CREATININE 0.6 mg/dL (0.55-1.02)
[2020-12-10] MEDS: Normal Saline - Diluent 50 ML VIAL IV (15:04)
[2020-12-10] MEDS: Omnipaque 350 MG/ML 50 ML BTL IJ ×2 (15:05→15:06)
== END 2020-12-10 02:43 ==
PROVIDERS: PCP Nurse Practitioner Family; Visit Provider Nurse Practitioner Family
DX: Z12.31 Encounter for screening mammogram for malignant neoplasm of breast (principal); R92.8 Other abnormal and inconclusive findings on diagnostic imaging of breast; J98.4 Other disorders of lung; R91.1 Solitary pulmonary nodule; D35.02 Benign neoplasm of left adrenal gland
CPT/HCPCS: 77063; 77067; 71260; 82565; Q9967

== ENCOUNTER 2020-12-16 03:02 | Outpatient (CLI) | payer OTHER, SELFPAY ==
--- NOTE | 2020-12-16 | DI.US_ITS ---
EXAM: MG MAMMO SCREEN CALL BACK UNI and COMPLETE LEFT BREAST ULTRASOUND CLINICAL HISTORY: F/U MAMMO, LT BREAST ASYMMETRIC DENSITY. TECHNIQUE: Unilateral spot mammographic images were obtained with 3D tomosynthesis and utilizing com puter aided detection (CAD). . IPSILATERAL LEFT breast Ultrasound was also performed. All 4 quadrants were scanned as well as the r etroareolar region and ipsilateral axilla. COMPARISON: Prior mammograms were reviewed. This additional imaging was performed due to findings described on the recent screening mammogram of 12/10/2020. FINDINGS: Additional mammographic views performed todayrender this area less concerning.. Complete left breast ultrasound performed today reveals no evidence of concerning mass at this locati on.. There is a 4 millimeter microcyst at the 1 o'clock position which corresponds to the other shania gn-appearing nodule which has been present on all prior mammograms. The patient also asked us to scan a finding at approximately 12 1 o'clock position at the junction of the breast and chest wall which is mobile. This is not visible on the mammogram. On ultrasound it has appearance of a probable benign lipoma measuring approximately 5.8 x 1.7 cm. IMPRESSION: No radiographic evidence of malignancy in the left breast. Benign-appearing findings as described ab ove. Appropriate follow-up is repeat left breast imaging in 6 months, this to include repeat left breast m ammogram and repeat left breast ultrasound. Earlier imaging would be recommended if there is a self detected breast change noted.. The patient was informed of these findings and recommendations prior to leaving the department today. BI-RADS Category 3 - 6 month - Probably Benign Finding: Recommend follow-up mammography in 6 months Breast Density - Category B - Scattered areas of fibroglandular density Breast density Category C or D implies that the patient has dense breast tissue. Dense breast tissue can make it harder to find cancer on a mammogram. Dense breast tissue is also associated with an incr eased risk of breast cancer. This information about the result of the mammogram report was provided to the patient to raise their awareness. Use this report when you speak with the patient about their risks for breast cancer, which includes their family history. At that time, you may recommend additional screening tests (Ultrasoun d or MRI) as these tests may add significant information. A negative radiographic report should not delay biopsy if a dominant or clinically suspicious mass is present. Up to ten percent of cancers are not identified on mammography. A negative report may reinforce clinical impression. Adenosis and dense breasts may obscure an underlying neoplasm. False positive reports average 6 to 10%. Patient will receive a letter notifying them of these results.
== END 2020-12-16 03:22 ==
PROVIDERS: PCP Nurse Practitioner Family; Visit Provider Nurse Practitioner Family
DX: Z12.31 Encounter for screening mammogram for malignant neoplasm of breast (principal); R92.8 Other abnormal and inconclusive findings on diagnostic imaging of breast; N60.02 Solitary cyst of left breast; N60.82 Other benign mammary dysplasias of left breast
CPT/HCPCS: 76642; 77063; 77067

== ENCOUNTER 2021-03-22 16:17 | Outpatient (REF) | payer OTHER, SELFPAY ==
[2021-03-22 21:12] LABS: Hemoglobin A1C 7.7 % (<5.7)
[2021-03-22 21:47] LABS: ALT 20 U/L (14-59); AST 13 U/L (15-37); Albumin 4.1 g/dL (3.4-5.0); Alkaline Phosphatase 71 U/L (46-116); BUN 22 mg/dL (7-18); Bilirubin, Total 0.8 mg/dL (0.2-1.0); CREATININE 0.7 mg/dL (0.55-1.02); Calcium 9.3 mg/dL (8.5-10.1); Chloride 104 mmol/L (98-107); Glucose 135 mg/dL (74-106); Potassium 4.5 mmol/L (3.5-5.1); Sodium 140 mmol/L (136-145)
== END 2021-03-22 16:18 | disposition home or self-care (01) ==
LOC: NCHCN 16:17
PROVIDERS: PCP Nurse Practitioner Family; Visit Provider Nurse Practitioner Family
DX: E11.9 Type 2 diabetes mellitus without complications (principal)
CPT/HCPCS: 80053; 83036

== ENCOUNTER 2021-04-01 03:33 | Outpatient (CLI) | payer OTHER, SELFPAY ==
--- NOTE | 2021-04-01 | DI.DEXA_ITS ---
Exam(s) XR DEXA BONE DENSITY W/WO RAYA EXAM: XR DEXA BONE DENSITY W/WO RAYA CLINICAL HISTORY: OSTEOPENIA,M85.80,OTHER DISORDER BONE DENSITY,M85.88 TECHNIQUE: COMPARISON: Comparison examination is 10/24/2017. FINDINGS: Lateral Spine Image: Unremarkable. No compression deformities identified. Left hip: Total T-Score: -1.2. This compares to -1.0 on the prior examination. Total Z-Score: 0.4 T- and Z-scores: Findings consistent with osteopenia. Lumbar Spine: Total T-Score: -1.2. This compares to -1.1 on the prior examination. Total Z-Score: 1.0 T- and Z-scores: Findings consistent with osteopenia. IMPRESSION: Findings of osteopenia in the lumbar spine and left hip. No evidence of osteoporosis.
== END 2021-04-01 03:53 ==
PROVIDERS: PCP Nurse Practitioner Family; Visit Provider Nurse Practitioner Family
DX: M85.88 Other specified disorders of bone density and structure, other site (principal)
CPT/HCPCS: 77080

== ENCOUNTER 2021-04-17 19:31 | Emergency (ER) | payer OTHER, SELFPAY ==
[2021-04-17 19:34] VITALS: BP 164/67; PULSE 75; RESP 16; TEMP 37.2; O2SAT 97
--- NOTE | 2021-04-17 19:58 | ED.GENADUL_ITS ---
Discharge Plan Disposition Patient Disposition: HOME Condition: Stable Discharge Details Clinical Impression: Otitis externa Primary Care Provider: Marina Yi ED Provider: Curtis Padilla Home Meds and New Rx's Prescriptions: Continued aspirin [Aspir-81] 81 MG tablet,delayed release (DR/EC) 81 mg PO DAILY RF: 0 multivitamin [Multi-Day] 1 EACH tablet 1 tab PO DAILY RF: 0 ibuprofen 600 MG tablet 600 mg PO Q6H PRN PRN (Reason: Pain) Qty: 25 RF: 0 vitamin E 400 unit Capsule 400 unit PO DAILY RF: 0 enalapril maleate 5 mg Tablet 5 mg PO DAILY RF: 0 glipizide 10 mg Tablet 10 mg PO BID RF: 0 cyanocobalamin (vitamin B-12) [Vitamin B-12] 1,000 mcg Tablet 1,000 mcg PO DAILY RF: 0 calcium carbonate [Calcium 500] 500 mg calcium (1,250 mg) Tablet 500 mg PO DAILY RF: 0 metformin 1,000 mg Tablet 1,000 mg PO BID RF: 0 lovastatin 20 mg Tablet 20 mg PO DAILY RF: 0 cholecalciferol (vitamin D3) [Vitamin D3] 1,000 unit Capsule 1,000 unit PO DAILY RF: 0 Discharge Instructions Instructions: Otitis Externa (ED) Additional Instructions: Cortisporin, 4 drops in the left ear 3-4 times daily for 10 days. Pcwv-bna-qqzuiic medications such as Tylenol for discomfort. Please watch for new or worsening symptoms and return to the ER for any concerns. Lastly, if symptoms not improving over the next 3-5 days I do recommend following up with your primary care provider. Medical Decision Making 71-year-old female with 2-week history of left ear pain, decreased hearing, drainage, has had it flushed twice without improvement of her symptoms. Examination today appears consistent with a left otitis externa. Will treat with Cortisporin HC. Patient has no additional questions or concerns and is comfortable with this plan. Clinically she appears well, nontoxic. She is afebrile, no mastoid tenderness Standard discharge and return precautions given This documentation was generated using [employer] system, please disregard any oddities of phrase or misspellings. Medical Records Medical records reviewed: Yes I reviewed the patient's medical records. HPI General Mode of arrival: ambulatory . Date/Time Provider Initiated Documentation: 04/17/21 19:40 . Limitations to Documentation: no limitations . Information obtained by: patient . HPI Narrative: This is a 71-year-old female, past medical history that includes diabetes, hyperlipidemia, presents to the ER now complaining of 2-week history of left ear pain, drainage, decreased hearing. Patient states that over the past 2 weeks she has been seen at the dental clinic in the the medical center and [facility], both times has had her ears flushed but symptoms have never completely resolved. Now reports that she has more of a consistent clear drainage. Denies recent illness or trauma. Denies bloody drainage, fever, sore throat, nasal congestion. No additional questions or concerns Related Data Home Medications Medication Instructions Recorded Confirmed aspirin [Aspir-81] 81 mg PO DAILY 07/12/14 04/17/21 ibuprofen 600 mg PO Q6H PRN PRN #25 tab 01/06/16 04/17/21 multivitamin [Multi-Day] 1 tab PO DAILY 01/06/16 04/17/21 calcium carbonate [Calcium 500] 500 mg PO DAILY 01/24/19 04/17/21 cholecalciferol (vitamin D3) 1,000 unit PO DAILY 01/24/19 04/17/21 [Vitamin D3] cyanocobalamin (vitamin B-12) 1,000 mcg PO DAILY 01/24/19 04/17/21 [Vitamin B-12] enalapril maleate 5 mg PO DAILY 01/24/19 04/17/21 glipizide 10 mg PO BID 01/24/19 04/17/21 lovastatin 20 mg PO DAILY 01/24/19 04/17/21 metformin 1,000 mg PO BID 01/24/19 04/17/21 vitamin E 400 unit PO DAILY 01/24/19 04/17/21 Previous Rx's Medication Instructions Recorded ibuprofen 600 mg PO Q6H PRN PRN #25 tab 01/06/16 Allergies Allergy/AdvReac Type Severity Reaction Status Date / Time meperidine HCl [From Demerol] Allergy Severe Pt states Verified 04/17/21 19:39 caused hospitalization lisinopril AdvReac Intermediate cough Verified 04/17/21 19:39 General Stated Complaint: EarProblem JOE: 5 Review of Systems Constitutional Constitutional: Denies fever(s) and Denies headache(s) ENT Ears, Nose, Mouth, and Throat: Reports ear discharge, Reports otalgia, Denies headache(s), Denies nasal congestion and Denies sore throat Respiratory Respiratory: Denies cough Integumentary/Breasts Skin/Breast: Denies erythema Neurologic Neurologic: Denies headache(s) PFSH Medical History Degenerative joint disease Diabetes fd: 130's Hx of cardiac murmur per. pt. states her PCP told her this Hx of solitary pulmonary nodule pt. reports couple Hyperlipidemia Osteopenia Surgical History Hx of removal of cyst Left upper arm Hx of tonsillectomy Social History Smoking/Tobacco Use Status: Never Smoking risk assessment performed?: Yes Alcohol Intake: current Alcohol Intake frequency: holidays/special occasions only Drug use: Never Substance use type: does not use Details: alcohol: 2 weeks Current gender identity: female Do you feel safe at home: Yes Do you feel safe in your relationship?: Yes Additional Social history: unable to obtain answer, in room Exam Const General: cooperative, healthy appearing, comfortable and no acute distress Orientation: alert and awake HENMT Head: normal to inspection, normocephalic and atraumatic Ears: hearing grossly normal bilaterally, external ears normal, TM's normal bilaterally and EAC abnormal (LEFT) erythema, edema, EAC tenderness and otic discharge clear General nose exam: external nose normal Face and sinus: normal facial exam Mouth: moist mucous membranes Throat: posterior oropharynx normal Eyes General: appearance normal, both eyes and all related structures Conjunctivae: conjunctivae normal Neck Neck: normal visual inspection, full ROM, trachea midline and supple Resp Effort & Inspection: normal respiratory effort and able to speak in complete sentences Auscultation: clear to auscultation bilaterally Cardio Rate: regular rate Rhythm: regular rhythm Skin General skin exam: no rashes or lesions noted Neuro General: patient alert, patient awake, moves all extremities and no focal motor deficits Sensory Exam: no sensory deficits noted Psych Appearance: grossly normal Mental Status: mental status grossly normal Course Vital Signs Vital signs: Vital Signs Temperature 37.2 C 04/17/21 19:34 Pulse 75 04/17/21 19:34 Respiratory Rate 16 04/17/21 19:34 Blood Pressure 164/67 H 04/17/21 19:34 Pulse Oximetry 97 04/17/21 19:34 Temperature 37.2 C 04/17/21 19:34 Temperature Source Skin 04/17/21 19:34 Pulse 75 04/17/21 19:34 Respiratory Rate 16 04/17/21 19:34 Respiratory Effort Non-Labored 04/17/21 19:45 Blood Pressure 164/67 H 04/17/21 19:34 Blood Pressure Position Sitting 04/17/21 19:34 Pulse Oximetry 97 04/17/21 19:34 Oxygen Delivery Method Room Air 04/17/21 19:34 Oxygen Flow Rate 0 04/17/21 19:34 Pain Level 7 04/17/21 19:34
[2021-04-17] MEDS: Cortisporin OTIC SUSP 10 ML BTL (20:08)
== END 2021-04-17 20:15 | disposition home or self-care (01) ==
PROVIDERS: Emergency Provider Physician Assistant; PCP Nurse Practitioner Family
DX: H60.92 Unspecified otitis externa, left ear (principal)
CPT/HCPCS: 99283

== ENCOUNTER → 2021-05-17 14:57 | Outpatient (BNVA) | payer OTHER, SELFPAY | PROVIDERS: PCP Nurse Practitioner Family; Referring Provider Nurse Practitioner Family; Visit Provider Nurse Practitioner Gerontology | DX: N39.0 Urinary tract infection, site not specified (principal) | CPT/HCPCS: 81003; 99213 ==

== ENCOUNTER 2021-06-21 01:51 | Outpatient (CLI) | payer OTHER, SELFPAY ==
--- NOTE | 2021-06-21 13:30 | DI.MAMMO_ITS ---
Exam(s) MAMMO DIAGNOSTIC UNI EXAM: MAMMO DIAGNOSTIC UNI-left CLINICAL HISTORY: DIAGNOSTIC, ASYMMETRICAL BREASTS, N64.89, 6 MONTH FOLLOW UP, R92.8. TECHNIQUE: Unilateral spot mammographic images were obtained with 3D tomosynthesis technique and uti lizing computer aided detection (CAD). COMPARISON: Prior mammograms dating back to 2011, the most recent being November 2020. Prior ultrasoun d examinations reviewed FINDINGS: The finding described on the recent mammogram is actually less evident on today's repeat mammogram, f urther evidence that it is benign. No radiographic evidence of malignancy in left breast. See left breast ultrasound report performed today. This reveals benign findings IMPRESSION: No radiographic evidence of malignancy in the left breast Benign ultrasound findings (see separate report) Appropriate follow-up is to keep this patient yearly mammogram schedule, with earlier imaging if a se lf detected breast change is noted. The patient was informed of the findings and follow-up recommendations prior to leaving the [facility]. BI-RADS Category 2 - Benign Findings Breast Density - Category B - Scattered areas of fibroglandular density Breast density Category C or D implies that the patient has dense breast tissue. Dense breast tissue can make it harder to find cancer on a mammogram. Dense breast tissue is also associated with an incr eased risk of breast cancer. This information about the result of the mammogram report was provided to the patient to raise their awareness. Use this report when you speak with the patient about their risks for breast cancer, which includes their family history. At that time, you may recommend additional screening tests (Ultrasoun d or MRI) as these tests may add significant information. A negative radiographic report should not delay biopsy if a dominant or clinically suspicious mass is present. Up to ten percent of cancers are not identified on mammography. A negative report may reinforce clinical impression. Adenosis and dense breasts may obscure an underlying neoplasm. False positive reports average 6 to 10%. Patient will receive a letter notifying them of these results.
--- NOTE | 2021-06-21 14:00 | DI.US_ITS ---
Exam(s) US BREAST LT COMPLETE EXAM: US BREAST LT COMPLETE CLINICAL HISTORY: ASYMMETRICAL BREASTS, N64.89, 6 MO F/U, F/U ABNL MAMMO, R92.8. TECHNIQUE: Complete ultrasound of the left breast was performed including all 4 quadrants, the retro areolar region, and the ipsilateral axilla. COMPARISON: Prior mammograms were reviewed. Prior ultrasound examination of 428 21 was also reviewed FINDINGS: Small microcysts is again noted. At the 3 o'clock position there is a benign-appearing lymph node me asuring 4.4 x 3 x 3.4 millimeters. There again no findings elsewhere in the 4 quadrants to correspond to the finding which was described on the original mammogram of 12/10/2020 and which again on today's mammogram appears less concerning . Previously described lipoma above the breast in the chest wall is again noted. It appears to have sli ghtly increased in size. Correlation with clinical findings recommended to determine biopsy of this i s recommended. This is outside of the breast. Scanning of the ipsilateral left axilla reveals no significant adenopathy. IMPRESSION: Benign left breast findings. Appropriate mammogram follow-up is to keep this patient yearly mammogram schedule, with earlier imagi ng if a self detected breast change is noted. The subcutaneous probable lipoma which is above the breast is again noted and appears to have slightl y increased in size. Decision as to biopsy this is at the discretion of the referring physician BI-RADS Category 2 - Benign Findings Breast Density - Category B - Scattered areas of fibroglandular density Breast density Category C or D implies that the patient has dense breast tissue. Dense breast tissue can make it harder to find cancer on a mammogram. Dense breast tissue is also associated with an incr eased risk of breast cancer. This information about the result of the mammogram report was provided to the patient to raise their awareness. Use this report when you speak with the patient about their risks for breast cancer, which includes their family history. At that time, you may recommend additional screening tests (Ultrasoun d or MRI) as these tests may add significant information. A negative radiographic report should not delay biopsy if a dominant or clinically suspicious mass is present. Up to ten percent of cancers are not identified on mammography. A negative report may reinforce clinical impression. Adenosis and dense breasts may obscure an underlying neoplasm. False positive reports average 6 to 10%. Patient will receive a letter notifying them of these results.
== END 2021-06-21 02:11 ==
PROVIDERS: PCP Nurse Practitioner Family; Visit Provider Nurse Practitioner Family
DX: R92.8 Other abnormal and inconclusive findings on diagnostic imaging of breast (principal); N63.21 Unspecified lump in the left breast, upper outer quadrant
CPT/HCPCS: 76642; 77061; 77065; G0279

== ENCOUNTER → 2021-07-05 10:28 | Outpatient (BNVA) | payer OTHER, SELFPAY | PROVIDERS: PCP Nurse Practitioner Family; Referring Provider Nurse Practitioner Family; Visit Provider Surgery | DX: L72.8 Other follicular cysts of the skin and subcutaneous tissue (principal); D17.1 Benign lipomatous neoplasm of skin and subcutaneous tissue of trunk; E78.5 Hyperlipidemia, unspecified; E11.9 Type 2 diabetes mellitus without complications | CPT/HCPCS: 99202; 99214 ==

== ENCOUNTER 2021-07-26 02:58 | Outpatient (CLI) | payer MEDICARE, SELFPAY ==
[2021-07-26 10:25] LABS: Source Nasal/Nares
[2021-07-26 14:19] LABS: COVID-19 PCR Negative (Negative)
== END 2021-07-26 02:59 | disposition home or self-care (01) ==
LOC: LBO 02:58
PROVIDERS: PCP Nurse Practitioner Family; Visit Provider Surgery
DX: Z20.822 Contact with and (suspected) exposure to COVID-19 (principal)
CPT/HCPCS: 87635

== ENCOUNTER 2021-07-27 07:57 | Day surgery (SDC) | payer MEDICARE, SELFPAY ==
--- NOTE | 2021-07-26 21:03 | W.PM.DSUDISC ---
Discharge Plan Disposition Patient Disposition: HOME Condition: Good Discharge Details Reason For Visit: lipoma removal Attending Provider: Sita De Los Santos Primary Care Provider: Marina Yi Home Meds and New Rx's Prescriptions: New tramadol 50 mg tablet 50 mg PO Q6H PRN (Reason: pain >7) Qty: 5 RF: 0 Continued ascorbic acid (vitamin C) 500 mg capsule 500 mg PO DAILY RF: 0 aspirin [Aspir-81] 81 MG tablet,delayed release (DR/EC) 81 mg PO DAILY RF: 0 multivitamin [Multi-Day] 1 EACH tablet 1 tab PO DAILY RF: 0 ibuprofen 600 MG tablet 600 mg PO Q6H PRN PRN (Reason: Pain) Qty: 25 RF: 0 vitamin E 400 unit Capsule 400 unit PO DAILY RF: 0 enalapril maleate 5 mg Tablet 5 mg PO DAILY RF: 0 cyanocobalamin (vitamin B-12) [Vitamin B-12] 1,000 mcg Tablet 1,000 mcg PO DAILY RF: 0 calcium carbonate [Calcium 500] 500 mg calcium (1,250 mg) Tablet 500 mg PO DAILY RF: 0 metformin 1,000 mg Tablet 1,000 mg PO BID RF: 0 lovastatin 20 mg Tablet 20 mg PO DAILY RF: 0 cholecalciferol (vitamin D3) [Vitamin D3] 1,000 unit Capsule 1,000 unit PO DAILY RF: 0 diphenhydramine HCl 25 mg Tablet 25 mg PO DAILY PRNRF: 0 Discharge Instructions Additional Instructions: Wound Care Instruction Pain Control : Alternate Tylenol 1000mg by mouth every 8 hours and Ibuprofen 600mg every 6 hours. Make sure you take ibuprofen with food and not on an empty stomach. Take the Tylenol and ibuprofen continuously for the first 72hrs- not just when you have pain. Use the tramadol for breakthrough pain. Use ICE! Twenty minutes on, and then off, continuously for the first 72hours. If you are taking narcotic pain medication, follow the instructions on the label and do not drive. Pain medications can make you very constipated. Make sure you are moving your bowels daily. If not, take Miralax, milk of magnesia or magnesium citrate. Anesthesia makes you very constipated. Take a dose of milk of magnesia the morning after surgery. ?Caring for Your Incision Home care ? Always wash your hands before touching your incision. ? Keep the incision clean, dry, and out of water, keep the incision out of water. ? Do not to pick at the scabs. Scabs help protect the wound. ? You can take a shower in 24 hours and wash the incision with soap and water. Pat dry/don?t scrub. It?s OK to wash around the incision. But don?t spray water directly on it. ? Pat stitches dry if they get wet. Don't rub. ? Check the incision site daily for pain, redness, drainage, swelling, or separation of the incision edges. ? Make sure any clothing that touches the incision is loose-fitting. This will prevent rubbing. If the incision is on the head, keep your child from wearing caps or other head coverings. These may rub against the incision. As your incision heals, the skin may appear pink or red. It may also feel slightly bumpy or raised. This is called a healing ridge. Over time, the color should fade and the raised skin will become less noticeable. When to seek medical care Call your healthcare provider right away if you have any of these: ? More pain, redness, swelling, bleeding, or foul-smelling discharge around the incision area ? Fever of 101?F (38.3?C) or higher, or as directed by your child's healthcare provider ? Shaking chills ? Vomiting or nausea that doesn?t go away ? Numbness, coldness, or tingling around the incision area, or changes in skin color ? Opening of the sutures or wound -Stitches or charissa that come apart or fall out or surgical tape falls off before 7 days, or as directed by your healthcare provider [facility]: [phone] F/u in Activity:: no lifting over 10#'s w/ left arm for 10 days Remove Dressings/Wound Care:: 24 hours Shower/Bathe:: 24 hours Diet:: Carb Counting Discharge Orders Discharge Orders: Discharge Order (Routine); Ordered 07/26/21 Ordered By: Sita De Los Santos DS: Diagnosis Discharge Diagnosis (1) Lipoma of chest wall: Status: Acute
--- NOTE | 2021-07-26 21:06 | W.PM.OP ---
Date of service: 07/27/21 Operative Note Operative Note DATE OF PROCEDURE: 07/27/21 PRE-OP DIAGNOSIS: lipoma POST-OP DIAGNOSIS: same PROCEDURE: excision SURGEON: Sita De Los Santos SURGICAL PROCESSOR: Leilani Romero ANESTHESIA TYPE: Local By Surgeon and General:No Airway Refer to Anesthesia Record ESTIMATED BLOOD LOSS: 1 PATHOLOGY: other COMPLICATIONS: None Patient's condition: stable Procedure Description: Patient is here today for lipoma removal. Informed consent is obtained Risks and benefits of the throwing but not limited to: Bleeding, infection, pneumonia, blood clots, complications of anesthesia, recurrence, and other complications. Patient is marked in preop. She is brought back to the operative suite and placed in the supine position. Anesthesia is administered per the department of anesthesia. She is prepped and draped in the usual sterile fashion using a ChloraPrep prep solution. Timeout is performed. 20 cc of quarter percent Marcaine plain is used for local anesthetization. A 1 inch incision is made with a number 15 blade over the apex of the incision. Electrocautery is used by hemostasis and dissect down to the lipoma. It is grasped with an Allis and bluntly dissected out. It is removed in its entirety. There is no bleeding noted. Wound is irrigated. It is closed in 2 layers with 2-0 Vicryl and 3-0 nylon. No drain is required. Show compression dressings are applied. Patient tolerated procedure well without complication and transferred to same-day surgery in stable condition. This document was created using voice activated software and may contain errors.
[2021-07-27 08:11] VITALS: BP 136/58; PULSE 72; RESP 16; TEMP 36.4; O2SAT 100
[2021-07-27] MEDS: Gabapentin 300 MG CAP PO (08:36)
[2021-07-27] MEDS: Acetaminophen 500 MG TAB 1000 MG PO (08:36)
--- NOTE | 2021-07-27 09:12 | ANES.PREOP_ITS ---
General Info Date of Service Date Performed: 07/27/21 Height: 5 ft 4 in Weight: 70.4 kg Body Mass Index (BMI): 26.6 Surgical Procedure: Operation Date: 07/27/21 09:40 Proposed Procedures Side Surgeon p Excision Lipoma Lt Chest Wall Left Sita De Los Santos DO Meds Allergies and Home Medications Allergies Allergy/AdvReac Type Severity Reaction Status Date / Time meperidine HCl [From Demerol] Allergy Severe Pt states Verified 07/27/21 08:06 caused hospitalization lisinopril AdvReac Intermediate cough Verified 07/27/21 08:06 Home Medication Medication Instructions Recorded aspirin [Aspir-81] 81 mg PO DAILY 07/12/14 ibuprofen 600 mg PO Q6H PRN PRN #25 tab 01/06/16 multivitamin [Multi-Day] 1 tab PO DAILY 01/06/16 calcium carbonate [Calcium 500] 500 mg PO DAILY 01/24/19 cholecalciferol (vitamin D3) 1,000 unit PO DAILY 01/24/19 [Vitamin D3] cyanocobalamin (vitamin B-12) 1,000 mcg PO DAILY 01/24/19 [Vitamin B-12] enalapril maleate 5 mg PO DAILY 01/24/19 lovastatin 20 mg PO DAILY 01/24/19 metformin 1,000 mg PO BID 01/24/19 vitamin E 400 unit PO DAILY 01/24/19 ascorbic acid (vitamin C) 500 mg 500 mg PO DAILY 07/05/21 capsule diphenhydramine HCl 25 mg PO DAILY PRN 07/26/21 Current Visit Medications: Current Medications Generic Name Dose Route Start Last Admin Trade Name Freq PRN Reason Stop Dose Admin Acetaminophen 1,000 mg 07/27/21 06:00 07/27/21 08:36 Acetaminophen 500 Mg Tab PO 07/27/21 16:00 1,000 mg PREOP GENET Administration Gabapentin 300 mg 07/27/21 06:00 07/27/21 08:36 Gabapentin 300 Mg Cap PO 07/27/21 16:00 300 mg PREOP GENET Administration Ringer's Solution 1,000 mls @ 80 mls/hr 07/27/21 06:00 IV 08/25/21 23:59 INFUSION GENET Ondansetron HCl 4 mg/ Sodium 52 mls @ 200 mls/hr 07/26/21 21:02 Chloride IVPB Q6H PRN PRN IV Miscellaneous Supplies 1 each 07/27/21 06:00 Iv Access IV 08/25/21 23:59 DIRECTED GENET Morphine Sulfate 2 mg 07/26/21 21:02 Morphine 4 Mg/Ml Syr IVP Q1H PRN PRN Sodium Chloride 0 ml 07/27/21 06:00 Normal Saline Flush 10 Ml Syr IV 08/25/21 23:59 PRN PRN Sodium Chloride 0 ml 07/27/21 06:00 Normal Saline 10 Ml Vial IJ 08/25/21 23:59 DIRECTED PRN Sterile Water 0 ml 07/27/21 06:00 Water,Injection,Sterile 10 Ml Vial IJ 08/25/21 23:59 DIRECTED PRN Tramadol HCl 50 mg 07/26/21 21:02 Tramadol 50 Mg Tab PO Q6H PRN PRN Pain PFSH Active Problems Active Problems: Problem Status Onset Code Lipoma of chest wall D17.1 Hyperlipidemia E78.5 Diabetes E11.9 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 Sensorineural hearing loss (SNHL) of right ear with restricted hearing of left ear H90.A21 Otitis externa H60.90 Tendinitis of right wrist M77.8 Medical History Active Problem List Lipoma of chest wall (Acute) Hyperlipidemia (Acute) Diabetes (Acute) Mixed conductive and sensorineural hearing loss of left ear with restricted hearing of right ear (Acute) Sensorineural hearing loss (SNHL) of right ear with restricted hearing of left ear (Acute) Otitis externa (Acute) Tendinitis of right wrist (Chronic) Medical History Abdominal pain Adrenal adenoma Breasts asymmetrical Degenerative joint disease Gallstones Gross hematuria Hx of cardiac murmur per. pt. states her PCP told her this Hx of solitary pulmonary nodule pt. reports couple Migraine headache with aura Osteopenia Pulmonary nodule Seasonal allergies Soft tissue mass Surgical History Surgical History Hx of removal of cyst Left upper arm Hx of tonsillectomy Tobacco Smoking/Tobacco Use Status: Never Alcohol Alcohol Intake: current Alcohol intake frequency: holidays/special occasions on ly Substance Use Substance use: Never Substance use type: does not use Vital Signs and Lab Results Vital Signs Most Recent Vital Signs in EMR: Most Recent Vital Signs Temp Pulse Resp BP Pulse Ox 36.4 C L 72 16 136/58 L 100 07/27/21 08:11 07/27/21 08:11 07/27/21 08:11 07/27/21 08:11 07/27/21 08:11 Point of Care Results Point of Care Results: Finger Stick Blood Glucose 148 07/27/21 08:25 Lab Results Blood Type / Crossmatch: No Data to Display Complete Blood Count: No Data to Display Complete Metabolic Panel: No Data to Display Liver Function Panel: No Data to Display Coagulation Panel: No Data to Display Cardiac Panel: No Data to Display Arterial Blood Gas: No Data to Display Venous Blood Gas: No Data to Display Pancreas Panel: No Data to Display Thyroid Panel: No Data to Display Infectious Disease: Coronavirus (COVID-19)(PCR) Negative (Negative) 07/26/21 09:45 07/26/21 Coronavirus 2019 Source Nasal/Nares 07/26/21 09:45 07/26/21 Blood Cultures: No Data to Display Toxicology Panel: No Data to Display Anesthesia Assessment and Plan Anesthesia History Personal History: No History of Anesthesia Complications Family History: No Family History of Anesthesia Complications Exercise Tolerance Exercise Tolerance: Metabolic Equivalents>4 Pertinent Negatives Pertinent Negatives: No Symptoms of GERD, No Major Cardiovascular Symptoms or Complaints, No Major Pulmonary Symptoms or Complaints and No History of CVA/TIA Cardiac & Pulmonary Exam Cardiac Exam: Normal S1/S2 Heart Sounds and Heart Murmur Present Pulmonary Exam: Clear Bilateral Breath Sounds Implantable Cardiac Device Does patient have a Pacemaker or an ICD?: No Airway Exam Known Difficult Airway: No Mallampati Class: 2 Mouth Opening: Normal (> 3cm) Thyromental Distance: Greater than 3 cm Neck Range of Motion: Full ROM Neck Circumference: Normal Teeth Condition: Normal Dentition ASA Classification ASA Score: ASA 2 Emergency Case?: No NPO Status NPO Status: NPO Clears >2 hours, Solids >8 hours Anesthesia Plan Resuscitation Status: Full Code Anesthesia Technique: General Anesthesia Airway Planned: Natural Airway Monitors Used: Standard Monitors
[2021-07-27 10:45] VITALS: BMI 26.6
[2021-07-27] MEDS: Lactated Ringers 1,000 ML 80 ML IV (11:00)
--- NOTE | 2021-07-27 11:20 | SOFT_PTH ---
PATIENT: La Watson LOC: [facility] U#:[id number] AGE/SX: 71/F ROOM: RE07/27/[address]: Sita De Los Santos : 1950 BED: DIS: 07/27/2021 SPEC #: [id number] RECD: 07/27/21 12:32 STATUS: DAWN REaFviola #: [id number] KAYLIN: 07/27/21 11:[address]: Sita De Los Santos DEPT: Surgical Specimen RECD BY: Flor Cadena ENTERED: 07/27/21 12:33 SP TYPE: SOFT OTHR DR: Marina Yi Tissues: 1 - SOFT TISSUE MISC (INC. LIPOMA) Procedures: GROSS AND MICRO LEVEL 3 Comments: [id number]
[2021-07-27] MEDS: Bupivacaine 0.25% Pres-Free 30 ML VIAL (11:33)
[2021-07-27 11:40] VITALS: BP 91/50; PULSE 62; RESP 18; TEMP 36.1; O2SAT 98
--- NOTE | 2021-07-27 12:08 | W.ANESPOSTOP ---
Postoperative Evaluation Date, Time and Location Date Performed: 07/27/21 Time Performed: 11:40 Patient Location: Day Surgery Unit Vital Signs Most Recent Imported Vital Signs: Most Recent Vital Signs Temp Pulse Resp BP Pulse Ox 36.1 C L 62 18 91/50 L 98 07/27/21 11:40 07/27/21 11:40 07/27/21 11:40 07/27/21 11:40 07/27/21 11:40 Pain Score Most Recent Pain Score: Most Recent Pain Score Pain Level 0 07/27/21 11:40 Assessment Mental Status: Awake (Alert & Oriented to Patient Baseline) Airway and Respiratory Function: Patent airway with normal (patient baseline) respiratory exam Cardiovascular Function: Hemodynamically Stable Hydration Status: Adequately Hydrated Nausea & Vomiting: No Nausea or Vomiting Pain: Pt. Denies Any Pain Peripheral Nerve Block: Patient did not receive a nerve block
[2021-07-27 12:10] VITALS: BP 102/55; PULSE 62; RESP 16; TEMP 36.4; O2SAT 99
[2021-07-27 12:57] VITALS: BP 132/62; PULSE 60; RESP 16; TEMP 36.4; O2SAT 99
== END 2021-07-27 13:39 | disposition home or self-care (01) ==
PROVIDERS: PCP Nurse Practitioner Family; Visit Provider Surgery
PROC: (CPT 11403; principal; 2021-07-27 09:30)
DX: D17.1 Benign lipomatous neoplasm of skin and subcutaneous tissue of trunk (principal); E11.9 Type 2 diabetes mellitus without complications; E78.5 Hyperlipidemia, unspecified
CPT/HCPCS: 11403; 12031; 88304; J1100; J1885; J2001; J2250; J2405

== ENCOUNTER 2021-08-04 00:22 | Outpatient (CLI) | payer MEDICARE, SELFPAY ==
[2021-08-04 08:30] LABS: CREATININE 0.7 mg/dL (0.55-1.02)
[2021-08-04] MEDS: Omnipaque 350 MG/ML 100 ML BTL IJ (08:43)
[2021-08-04] MEDS: Normal Saline Flush 10 ML SYR IVP (08:44)
[2021-08-04] MEDS: Omnipaque 350 MG/ML 50 ML BTL PO (08:48)
[2021-08-04] MEDS: Breeza Beverage 473 ML BTL PO ×2 (08:48→08:49)
--- NOTE | 2021-08-04 09:05 | DI.CT_ITS ---
Exam(s) CT ABDOMEN WO/W EXAM: CT ABDOMEN WO/W CLINICAL HISTORY: ADRENAL ADENOMA D35.00. TECHNIQUE: Imaging Protocol: Pre and post contrast injected axial computed tomography images with co bertha and sagittal reformatted images were created and reviewed. CONTRAST MATERIAL: Intravenous: Omnipaque 100cc Oral: None COMPARISON: CT CT ABDOMEN PELVIS W from 01/24/[address] ABDOMEN PELVIS WO/W from 03/05/2020 FINDINGS: VISUALIZED LUNG BASES: There are nodules in the lateral basal segment of the left lower lobe again no tad, both measuring 5 millimeters and unchanged from prior CT scan. No pleural effusions. ABDOMEN: This scan was limited to the abdomen. The pelvis was not scanned. There is no ascites. LIVER: There are no focal hepatic lesions evident . GALLBLADDER/BILIARY: Are 1.4 cm diameter gallstones noted. The gallbladder wall is not edematous. N o pericholecystic fluid. CBD is not dilated. PANCREAS: No evidence of pancreatic mass nor dilatation of the pancreatic duct. SPLEEN: Spleen is not enlarged. No obvious intrasplenic lesions. Splenic and portal veins are paten t. ADRENALS: Slight thickening of the genu of the left adrenal gland is unchanged, measuring approximate ly 1.3 x 1.2 cm. Possibly a small incidental adenoma. KIDNEYS:No cysts evident. No solid renal masses. Solitary nondilated ureter on side. ABDOMINAL AORTA: Abdominal aorta is not enlarged. LYMPH NODES:There is no retroperitoneal nor paraaortic adenopathy. ABDOMINAL WALL: No evidence of significant anterior abdominal wall at and above the umbilicus. GI: No obvious bowel obstruction. OSSEOUS: No significant osseous lesions. No fractures IMPRESSION: 1. Slight thickening of the left adrenal gland is noted at the level the genu, unchanged. This may r epresent a small incidental adenoma. 2. No significant findings in the kidneys. 3. Cholelithiasis again noted. No gallbladder wall edema and no dilatation of the biliary tree, bot h intra and extrahepatic. 3. Please note that the pelvis was not scanned and therefore the bladder cannot be assessed nor catracho red to the prior CT study of 03/05/2020. 4. Unchanged 5 millimeter nodules in left lung base. These 2 nodules appear unchanged from the February 2020 CT scan and also exhibit minimal change from the January 2019 CT scan. RADIATION DOSE DELIVERED: 1,277.54mGy.cm Total DLP DATA REPOSITORY: All CT scans at this facility are submitted to the National Radiology Data Registry (NRDR) Dose Index Registry (DIR) with the [employer] (A[employer]). RADIATION OPTIMIZATION: All CT scans at this facility use at least one of these dose optimization te chniques: automated exposure control; mA and/or kV adjustment per patient size (includes targeted exa ms where dose is matched to clinical indication); or iterative reconstruction.
== END 2021-08-04 00:42 ==
PROVIDERS: PCP Nurse Practitioner Family; Visit Provider Nurse Practitioner Family
DX: Z48.02 Encounter for removal of sutures (principal); D35.00 Benign neoplasm of unspecified adrenal gland; Z01.818 Encounter for other preprocedural examination; K80.20 Calculus of gallbladder without cholecystitis without obstruction; R91.1 Solitary pulmonary nodule
CPT/HCPCS: 74170; 82565; J3490; Q9967

== ENCOUNTER 2021-12-13 03:43 | Outpatient (CLI) | payer MEDICARE, SELFPAY ==
--- NOTE | 2021-12-13 09:06 | DI.MAMMO_ITS ---
Exam(s) MAMMO SCREENING EXAM: MAMMO SCREENING CLINICAL HISTORY: SCREENING, Z12.39 TECHNIQUE: Bilateral full field digital CC and MLO mammographic images were obtained with 3D tomosyn thesis and utilizing computer aided detection (CAD). COMPARISON: Available for comparison. FINDINGS: Masses/Architectural Distortion: There is a stable nodule in the left breast. No suspicious masses o r areas of architectural distortion are present. Microcalcifications: No suspicious pleomorphic-type are seen. Skin Thickening/Nipple Retraction: None. IMPRESSION: 1. No significant interval change with no specific features of malignancy noted. 2. Unless there is more urgent need, screening mammography is recommended, as per [employer] guidelines. BI-RADS Category 1 - Negative Breast Density - Category B - Scattered areas of fibroglandular density Breast density category C or D implies that the patient has dense breast tissue. Dense breast tissue is very common and is not abnormal but dense breast tissue can make it harder to find cancer on a ma mmogram. Also, dense breast tissue may increase their breast cancer risk. This information about the result of the mammogram report was provided to the patient to raise their awareness. Use this report when you speak with the patient about their risks for breast cancer, which includes their family hist ory. At that time, you may recommend for more screening tests (Ultrasound or MRI) as they might be us eful based on their risk. A negative radiographic report should not delay biopsy if a dominant or clinically suspicious mass is present. Up to ten percent of cancers are not identified on mammography. A negative report may reinforce clinical impression. Adenosis and dense breasts may obscure an underlying neoplasm. False positive reports average 6 to 10%. Patient will receive a letter notifying them of these results.
== END 2021-12-13 04:03 ==
PROVIDERS: PCP Nurse Practitioner Family; Visit Provider Nurse Practitioner Family
DX: Z12.31 Encounter for screening mammogram for malignant neoplasm of breast (principal)
CPT/HCPCS: 77063; 77067

== ENCOUNTER → 2022-01-05 01:34 | Outpatient (CLI) | payer MEDICARE, SELFPAY ==
--- NOTE | 2022-01-05 | DI.CT_ITS ---
Exam(s) CT CHEST WO EXAM: CT CHEST WO CLINICAL HISTORY: PULMONARY NODULE, J98.4. TECHNIQUE: Multi planar reconstructions were performed. CONTRAST MATERIAL: None COMPARISON: CT CT ABDOMEN PELVIS WO/W from 03/05/[address] CHEST W from 12/10/2020 FINDINGS: CHEST: LUNGS: The previously described 2 peripherally located noncalcified left lower lobe nodules are uncha nged in size and configuration when compared to 12/10/2020 and 03/05/2020. The small nodule in the s uperior segment of the right lower lobe is also unchanged. There are no new nodules, new infiltrates , nor pleural effusions MEDIASTINUM: There is no obvious hilar nor mediastinal adenopathy. No obvious axillary adenopathy CARDIAC: Heart size is normal. There is no pericardial effusion.Caliber of the thoracic aorta is wit hin normal limits. VISUALIZED UPPER ABDOMEN:Gallstones noted. No adrenal masses. No splenomegaly. OSSEOUS: No significant osseous lesions.. IMPRESSION: 1. Continued stable appearance of the 2 small subpleural nodules in the left lower lobe as well as st able appearance of the small nodule in the superior segment of the right lower lobe. These are most probably benign nodules, given their lack of change from the above studies. 2. There are no new nodules in either lung field and there are no pleural effusions nor intrathoracic adenopathy 3. Incidentally noted is cholelithiasis. RADIATION DOSE DELIVERED: 600.75mGy.cm Total DLP DATA REPOSITORY: All CT scans at this facility are submitted to the National Radiology Data Registry (NRDR) Dose Index Registry (DIR) with the [employer] (ACR). RADIATION OPTIMIZATION: All CT scans at this facility use at least one of these dose optimization te chniques: automated exposure control; mA and/or kV adjustment per patient size (includes targeted exa ms where dose is matched to clinical indication); or iterative reconstruction.
== END ==
PROVIDERS: PCP Nurse Practitioner Family; Visit Provider Nurse Practitioner Family
DX: R91.1 Solitary pulmonary nodule (principal); J98.4 Other disorders of lung
CPT/HCPCS: 71250

== ENCOUNTER 2022-03-01 07:05 | Emergency (ER) | payer MEDICARE, SELFPAY ==
[2022-03-01] VITALS (137 sets, daily range): BP systolic 107–140; BP diastolic 49–68; PULSE 59–73; RESP 10–24; TEMP 36.4–36.6; O2SAT 95–100
--- NOTE | 2022-03-01 07:15 | RT.EKG_ITS ---
APPROVED REPORT Exam: Resting ECG Reason for Exam: dizzy Patient Location: E HR:63 bpm ECG Measurements Heart Rate 63 AXIS MN 161 P 81 QRSd 77 QRS -9 QT 425 T 38 QTc 437 Conclusion Sinus rhythm...normal P axis, V-rate 60- 99 Low voltage, precordial leads...precordial leads <1.0mV sinus rhythm, left axis, normal intervals
--- NOTE | 2022-03-01 07:34 | ED.GENADUL_ITS ---
Discharge Plan Disposition Patient Disposition: STILL A PATIENT Discharge Details Chief Complaint: GenMedical Primary Care Provider: Marina Yi ED Provider: Jonas Jade Home Meds and New Rx's Prescriptions: No Action ascorbic acid (vitamin C) 500 mg capsule 500 mg PO DAILY aspirin [Aspir-81] 81 MG tablet,delayed release (DR/EC) 81 mg PO DAILY multivitamin [Multi-Day] 1 EACH tablet 1 tab PO DAILY ibuprofen 600 MG tablet 600 mg PO Q6H PRN PRN (Reason: Pain) Qty: 25 0RF vitamin E 400 unit Capsule 400 unit PO DAILY enalapril maleate 5 mg Tablet 5 mg PO DAILY cyanocobalamin (vitamin B-12) [Vitamin B-12] 1,000 mcg Tablet 1,000 mcg PO DAILY calcium carbonate [Calcium 500] 500 mg calcium (1,250 mg) Tablet 500 mg PO DAILY metformin 1,000 mg Tablet 1,000 mg PO BID lovastatin 20 mg Tablet 20 mg PO DAILY cholecalciferol (vitamin D3) [Vitamin D3] 1,000 unit Capsule 1,000 unit PO DAILY diphenhydramine HCl 25 mg Tablet 25 mg PO DAILY PRN tramadol 50 mg tablet 50 mg PO Q6H PRN (Reason: pain >7) Qty: 5 0RF Rx Instructions: Will cause constipation Medical Decision Making 71-year-old female history of diabetes, recently perforated left TM, presents with dizzy sensation lightheadedness nausea without vomiting that began this morning, cranial nerves II through XII intact, 5 out of 5 strength upper and lower extremities, no respiratory distress afebrile no chest pain, normal vital signs, noted to have lateral nystagmus on examination, no truncal ataxia, likely peripheral vertigo in the setting of perforated TM, less likely central process such as stroke, lower suspicion for ACS, must also consider electrolyte abnormality versus infectious etiology such as UTI. Screening labs EKG trial of meclizine Zofran and fluids. HPI General Date/Time Provider Initiated Documentation: 03/01/22 07:10 . HPI Narrative: 71-year-old female history of diabetes, recently sustained perforation of her left TM during a routine ear cleaning, presents with dizziness lightheaded sensation and nausea that began this morning slight spinning sensation. No vomiting. No weakness numbness or change in speech. Denies chest pain or shortness of breath. Related Data Home Medications Medication Instructions Recorded Confirmed aspirin 81 mg tablet,delayed 81 mg PO DAILY 07/12/14 03/01/22 release (Aspir-) ibuprofen 600 mg tablet 600 mg PO Q6H PRN PRN Pain #25 tabs 01/06/16 03/01/22 multivitamin (Multi-Day tablet) 1 tab PO DAILY 01/06/16 03/01/22 calcium carbonate 500 mg calcium 500 mg PO DAILY 01/24/19 03/01/22 (1,250 mg) tablet (Calcium 500) cholecalciferol (vitamin D3) 25 1,000 unit PO DAILY 01/24/19 03/01/22 mcg (1,000 unit) capsule (Vitamin D3) cyanocobalamin (vitamin B-12) 1,000 mcg PO DAILY 01/24/19 03/01/22 1,000 mcg tablet (Vitamin B-12) enalapril maleate 5 mg tablet 5 mg PO DAILY 01/24/19 03/01/22 lovastatin 20 mg tablet 20 mg PO DAILY 01/24/19 03/01/22 metformin 1,000 mg tablet 1,000 mg PO BID 01/24/19 03/01/22 vitamin E 268 mg (400 unit) capsule 400 unit PO DAILY 01/24/19 03/01/22 ascorbic acid (vitamin C) 500 mg 500 mg PO DAILY 07/05/21 03/01/22 capsule diphenhydramine HCl 25 mg tablet 25 mg PO DAILY PRN 07/26/21 03/01/22 tramadol 50 mg tablet 50 mg PO Q6H PRN pain >7 #5 tabs 07/27/21 03/01/22 Previous Rx's Medication Instructions Recorded ibuprofen 600 mg tablet 600 mg PO Q6H PRN PRN Pain #25 tabs 01/06/16 tramadol 50 mg tablet 50 mg PO Q6H PRN pain >7 #5 tabs 07/27/21 Allergies Allergy/AdvReac Type Severity Reaction Status Date / Time meperidine HCl [From Demerol] Allergy Severe Pt states Verified 03/01/22 07:14 caused hospitalization lisinopril AdvReac Intermediate cough Verified 03/01/22 07:14 General Stated Complaint: GenMedical JOE: 3 Review of Systems Narrative: Review of Systems Constitutional: negative Eyes: negative ENT: negative Cardiovascular: negative Respiratory: negative Gastrointestinal: Nausea : negative Musculoskeletal: negative Skin: negative Neurologic: Dizziness Psych: negative Dizziness PFSH All Active Problems (Updated 09/02/21 @ 14:30 by Afia Ramsay) Perforation of left tympanic membrane (Acute) Lipoma of chest wall (Acute) Hyperlipidemia (Acute) Diabetes (Acute) fd: 130's Mixed conductive and sensorineural hearing loss of left ear with restricted hearing of right ear (Acute) Sensorineural hearing loss (SNHL) of right ear with restricted hearing of left ear (Acute) Otitis externa (Acute) Tendinitis of right wrist (Chronic) Medical History (Updated 09/02/21 @ 14:30 by Afia Ramsay) Abdominal pain Adrenal adenoma Breasts asymmetrical Degenerative joint disease Gallstones Gross hematuria Hx of cardiac murmur per. pt. states her PCP told her this Hx of solitary pulmonary nodule pt. reports couple Migraine headache with aura Osteopenia Pulmonary nodule Seasonal allergies Soft tissue mass Surgical History Hx of removal of cyst Left upper arm Hx of tonsillectomy Social History Smoking/Tobacco Use Status: Never Smoking risk assessment performed?: Yes Alcohol Intake: current Alcohol Intake frequency: holidays/special occasions only Drug use: Never Substance use type: does not use Current gender identity: female Do you feel safe at home: Yes Do you feel safe in your relationship?: Yes Exam Narrative Exam Narrative: Physical Examination General: alert, awake, cooperative, resting comfortably, no acute distress HEENT: normocephalic, atraumatic; PERRL, EOM intact, lateral nystagmus; conjunctiva normal; no nasal discharge; moist mucous membranes, oral and pharyngeal mucosa normal; perforation to left TM Neck: supple, trachea midline; full ROM Chest: normal to inspection Respiratory: normal respiratory effort, speaking in full sentences, clear to auscultation, no wheezing, rales or rhonchi Cardiac: regular rate, regular rhythm, S1S2 intact, no murmurs rubs or gallops GI: abdomen soft, non-tender, non-distended; no palpable mass or hepatosplenomegaly Skin: no lesions, rashes or trauma appreciated Neuro: AAOx3, normal speech, 5 out of 5 strength upper and lower extremities, sensation intact, normal speech, cranial nerves II through XII intact, no truncal ataxia; lateral nystagmus Psych: Appropriate mood and affect Course Vital Signs Vital signs: Vital Signs Temperature 36.4 C L 03/01/22 07:11 Pulse 72 03/01/22 07:11 Respiratory Rate 18 03/01/22 07:11 Blood Pressure 137/68 03/01/22 07:11 Pulse Oximetry 97 03/01/22 07:11 Temperature 36.4 C L 03/01/22 07:11 Temperature Source Tympanic 03/01/22 07:11 Pulse 66 03/01/22 07:16 Respiratory Rate 14 03/01/22 07:23 Respiratory Effort Non-Labored 03/01/22 07:15 Respiratory Depth Normal 03/01/22 07:15 Respiratory Pattern Normal 03/01/22 07:15 Blood Pressure 140/61 03/01/22 07:16 Blood Pressure Position Sitting 03/01/22 07:11 Pulse Oximetry 97 03/01/22 07:24 Oxygen Delivery Method Room Air 03/01/22 07:11 Oxygen Flow Rate 0 03/01/22 07:11 Pain Level 0 03/01/22 07:11
[2022-03-01] MEDS: Meclizine 25 MG TAB PO (07:42)
[2022-03-01] MEDS: Ondansetron 4 MG/2 ML VIAL IVP (07:55)
[2022-03-01] MEDS: Normal Saline 1,000 ML 1000 ML IV ×2 (07:55→08:59)
[2022-03-01 07:59] LABS: Abs Immature Grans 0.01 10^3/uL (0.0-0.06); Absolute Basophil Count 0.05 10^3/uL (0.0-0.2); Absolute Eosinophil Count 0.11 10^3/uL (0.0-0.7); Absolute Lymphocyte Count 2.09 10^3/uL (1.2-3.4); Absolute Monocyte Count 0.58 10^3/uL (0.1-0.8); Absolute Neutrophil Count 2.77 10^3/uL (1.2-6.7); Basophils % 0.9; HCT 34.8 % (36.0-46.0); HGB 11.6 g/dL (11.2-15.7); Immature Grans % 0.2; Lymphocytes % 37.3; MCH 30.4 pg (27.0-33.0); MCHC 33.3 % (32.0-36.0); MCV 91 fL (80-95); Monocytes % 10.3; Neutrophils % 49.3; Platelet Count 259 10^3/uL (130-400); RBC 3.82 10^6/uL (3.93-5.22); RDW 12.7 % (11.7-14.6); RDW-SD 41.8 fL; WBC 5.61 10^3/uL (4.4-10.8)
[2022-03-01 08:19] LABS: ALT 16 U/L (14-59); AST 12 U/L (15-37); Albumin 3.2 g/dL (3.4-5.0); Alkaline Phosphatase 64 U/L (46-116); Anion Gap 8.5 mmol/L (3-11); BUN 17 mg/dL (7-18); Bilirubin, Total 0.6 mg/dL (0.2-1.0); CO2 25.5 mmol/L (21.0-32.0); CREATININE 0.7 mg/dL (0.55-1.02); Calcium 8.4 mg/dL (8.5-10.1); Chloride 104 mmol/L (98-107); Glucose 178 mg/dL (74-106); Sodium 138 mmol/L (136-145); Total Protein 6.1 g/dL (6.4-8.2); Troponin I < 50 ng/L (<or=60)
--- NOTE | 2022-03-01 08:45 | DI.RAD_ITS ---
Exam(s) XR CHEST 2V PA LATERAL EXAM: XR CHEST 2V PA LATERAL CLINICAL HISTORY: dizziness, r/o acute disease TECHNIQUE: 2D digital imaging was performed of the chest. Two images were obtained. PA and lateral views were obtained. COMPARISON: No exams were available for comparison FINDINGS: MEDIASTINUM: Normal. HEART: Normal. PULMONARY VASCULATURE: Normal. LUNGS: Clear. PLEURAL SPACE: No pleural effusion or pneumothorax. BONE:Within normal limits for the patient's age. OTHER FINDINGS:Normal. IMPRESSION: No acute pulmonary findings. DATA REPOSITORY: RADIATION DOSE DELIVERED:
--- NOTE | 2022-03-01 08:45 | DI.MRI_ITS ---
Exam(s) MR BRAIN WO EXAM: MR BRAIN WO CLINICAL HISTORY: dizziness, r/o acute cva TECHNIQUE: Multiplanar multisequence MRI of the brain was performed. COMPARISON: No exams were available for comparison FINDINGS: The examination is limited due to patient motion artifact. VENTRICLES AND EXTRA AXIAL SPACES: Normal in size and morphology for the patient's age. MIDLINE SHIFT: None. CEREBRAL PARENCHYMA: No focus of restricted diffusion to suggest acute infarct. No space-occupying le kenyatta identified. There are multiple areas of hyperintense signal seen on the FLAIR and T2 weighted im ages in the white matter most consistent with small vessel ischemic disease. HEMORRHAGE: None. BRAINSTEM/CEREBELLUM: Normal. CALVARIUM: Normal. VISUALIZED PARANASAL SINUSES/MASTOIDS:Clear. [place]: Normal flow void. PITUITARY GLAND: Unremarkable. OTHER FINDINGS: None. IMPRESSION: 1. The examination is limited due to patient motion artifact. 2. No evidence of an acute infarct. 3. Findings of small vessel ischemic disease and age-related cerebral atrophy. 4. Results of this exam have been verbally communicated with provider. DATA REPOSITORY:
[2022-03-01] MEDS: diazePAM 5 MG TAB PO (08:58)
--- NOTE | 2022-03-01 09:03 | W.EDPROG ---
Date of service: 03/01/22 Time of Service: 08:00 Medical Decision Making 0800 --please see Dr. Jade's note for initial presentation, exam and plan. Case endorsed to evaluate after meds and if symptoms not improved, consider imaging. Vitals within normal limits. Patient denies any significant relief in her nausea and dizziness after meds. Labs reviewed and unremarkable. She has not yet provided a urine sample. She has no focal deficits on exam. Her left TM perforation appears to be healing well without signs of infection. Her dizziness is reproducible with head movement and suspect likely peripheral vertigo however considering her age and persistent symptoms, will obtain head imaging. Case discussed with radiologist Dr. Mcintosh and recommends MRI brain without contrast. We will also refer for chest x-ray and give additional IV fluids, p.o. Valium, IV Phenergan and reassess. 1100 --MRI brain negative for acute findings. Patient reassessed and she states her nausea is improved and is significantly drowsy and still feels dizzy. She would like to attempt to eat or drink at some point and if improved would like to go home. If patient's dizziness not improved, will consider admission. 1300 --patient able to eat and drink and ambulate and feels better and would like to go home. Disposition decision made weighing the risks and benefits of hospitalization versus outpatient treatment, the risk for further decompensation, and the patient's wishes. We will send with prescriptions for Zofran and meclizine. She is advised to increase fluids and rest. Advised to follow up with the primary care doctor for re-evaluation. Usual and customary return precautions given prior to discharge. Medical Records Medical records reviewed: Yes I reviewed the patient's medical records. Imaging Data Radiologic Study: Radiologist's impression: XR CHEST 2V PA ? LATERAL CLINICAL HISTORY:? dizziness, r/o acute disease TECHNIQUE:? 2D digital imaging was performed of the chest.? Two images were obtained.? PA and lateral views were obtained. COMPARISON:? No exams were available for comparison FINDINGS: MEDIASTINUM: Normal.? HEART: Normal. PULMONARY VASCULATURE: Normal. LUNGS: Clear. ? PLEURAL SPACE: No pleural effusion or pneumothorax. BONE:Within normal limits for the patient's age.? OTHER FINDINGS:Normal.? IMPRESSION: No acute pulmonary findings. MR BRAIN WO CLINICAL HISTORY:? dizziness, r/o acute cva TECHNIQUE:? Multiplanar multisequence MRI of the brain was performed. COMPARISON:? No exams were available for comparison FINDINGS: The examination is limited due to patient motion artifact. VENTRICLES AND EXTRA AXIAL SPACES: Normal in size and morphology for the patient's age. MIDLINE SHIFT: None. CEREBRAL PARENCHYMA: No focus of restricted diffusion to suggest acute infarct. No space-occupying lesion identified. There are multiple areas of hyperintense signal seen on the FLAIR and T2 weighted images in the white matter most consistent with small vessel ischemic disease. HEMORRHAGE: None. BRAINSTEM/CEREBELLUM: Normal. CALVARIUM: Normal.? VISUALIZED PARANASAL SINUSES/MASTOIDS:Clear. [place]: Normal flow void. PITUITARY GLAND: Unremarkable. OTHER FINDINGS: None. IMPRESSION: 1. The examination is limited due to patient motion artifact. 2. No evidence of an acute infarct. 3. Findings of small vessel ischemic disease and age-related cerebral atrophy. 4. Results of this exam have been verbally communicated with provider.? Lab Data Lab results reviewed: Yes I reviewed the patient's lab results. Sign Out Sign Out Data: Sign Out Comment: vertigo symptoms, trial of meclizine and fluids; dispo pending labs and reassessment Last updated by Jonas Jade MD at 03/01/22 07:56 Discharge Plan Disposition Patient Disposition: HOME Condition: Improving Discharge Details Clinical Impression: Vertigo Primary Care Provider: Marina Yi ED Provider: Nicole Orta Home Meds and New Rx's Prescriptions: New meclizine 12.5 mg tablet 12.5 mg PO TID PRN (Reason: dizziness) Qty: 14 0RF ondansetron 4 mg tablet,disintegrating 4 mg PO TID PRN (Reason: nausea and vomiting) Qty: 6 0RF Continued ascorbic acid (vitamin C) 500 mg capsule 500 mg PO DAILY aspirin [Aspir-81] 81 MG tablet,delayed release (DR/EC) 81 mg PO DAILY multivitamin [Multi-Day] 1 EACH tablet 1 tab PO DAILY ibuprofen 600 MG tablet 600 mg PO Q6H PRN PRN (Reason: Pain) Qty: 25 0RF vitamin E 400 unit Capsule 400 unit PO DAILY enalapril maleate 5 mg Tablet 5 mg PO DAILY cyanocobalamin (vitamin B-12) [Vitamin B-12] 1,000 mcg Tablet 1,000 mcg PO DAILY calcium carbonate [Calcium 500] 500 mg calcium (1,250 mg) Tablet 500 mg PO DAILY metformin 1,000 mg Tablet 1,000 mg PO BID lovastatin 20 mg Tablet 20 mg PO DAILY cholecalciferol (vitamin D3) [Vitamin D3] 1,000 unit Capsule 1,000 unit PO DAILY diphenhydramine HCl 25 mg Tablet 25 mg PO DAILY PRN tramadol 50 mg tablet 50 mg PO Q6H PRN (Reason: pain >7) Qty: 5 0RF Rx Instructions: Will cause constipation Discharge Instructions Instructions: Vertigo (ED), Benign Paroxysmal Positional Vertigo (ED) Additional Instructions: Your labs, EKG and imaging today are reassuring and show no evidence of acute concerning or significant findings. Your symptoms could be due to vertigo which can be short-lived and self-limiting. Prescriptions for Zofran and meclizine have been sent electronically to your pharmacy. Follow-up with your primary care doctor in 1 week. Return to the emergency department with any worsening or new concerning symptoms such as worsening dizziness, headache, chest pain, shortness of breath or any other concerns. Discharge Data Discharge Physician: Nicole Orta
[2022-03-01 09:16] LABS: Bilirubin Negative (Negative); Blood Negative (Negative); Clarity Clear (Clear); Glucose Negative (Negative); Ketones 15 mg/dL (Negative); Leukocyte Esterase Negative (Negative); Nitrite Negative (Negative); Specific Gravity >= 1.030 (1.005-1.025); Urobilinogen 0.2 EU/dL (Up TO 0.2); pH 5.5 (5-8)
== END 2022-03-01 13:28 | disposition home or self-care (01) ==
PROVIDERS: Emergency Medicine; Emergency Provider Physician Assistant; PCP Nurse Practitioner Family
DX: R42 Dizziness and giddiness (principal); E11.9 Type 2 diabetes mellitus without complications; Z79.84 Long term (current) use of oral hypoglycemic drugs; R11.0 Nausea
CPT/HCPCS: 80053; 93005; 96361; 96365; 96375; 99285; 70551; 71046; 81003; 84484; 85025; 93010; 99284; J2405

== ENCOUNTER → 2022-12-05 10:32 | Outpatient (BNVA) | payer MEDICARE, SELFPAY | PROVIDERS: PCP Nurse Practitioner Family; Referring Provider Nurse Practitioner Family; Visit Provider Surgery | DX: R19.5 Other fecal abnormalities (principal); K57.30 Diverticulosis of large intestine without perforation or abscess without bleeding; Z80.0 Family history of malignant neoplasm of digestive organs; K80.20 Calculus of gallbladder without cholecystitis without obstruction; Z12.11 Encounter for screening for malignant neoplasm of colon | CPT/HCPCS: 99214 ==

== ENCOUNTER 2022-12-19 03:48 | Outpatient (CLI) | payer MEDICARE, SELFPAY ==
--- NOTE | 2022-12-19 | DI.MAMMO_ITS ---
Exam(s) MAMMO SCREENING EXAM: MAMMO SCREENING CLINICAL HISTORY: SCREENING,Z12.31 TECHNIQUE: Bilateral full field digital CC and MLO mammographic images were obtained with 3D tomosyn thesis and utilizing computer aided detection (CAD). COMPARISON: Available for comparison. FINDINGS: Masses/Architectural Distortion: There is stable left breast nodules. No suspicious nodules or areas of architectural distortion are seen. Microcalcifications: No suspicious pleomorphic-type are seen. Skin Thickening/Nipple Retraction: None. IMPRESSION: 1. No significant interval change with no specific features of malignancy noted. 2. Unless there is more urgent need, screening mammography is recommended, as per [employer] guidelines. BI-RADS Category 2 - Benign Findings Breast Density - Category B - Scattered areas of fibroglandular density Breast density category C or D implies that the patient has dense breast tissue. Dense breast tissue is very common and is not abnormal but dense breast tissue can make it harder to find cancer on a ma mmogram. Also, dense breast tissue may increase their breast cancer risk. This information about the result of the mammogram report was provided to the patient to raise their awareness. Use this report when you speak with the patient about their risks for breast cancer, which includes their family hist ory. At that time, you may recommend for more screening tests (Ultrasound or MRI) as they might be us eful based on their risk. A negative radiographic report should not delay biopsy if a dominant or clinically suspicious mass is present. Up to ten percent of cancers are not identified on mammography. A negative report may reinforce clinical impression. Adenosis and dense breasts may obscure an underlying neoplasm. False positive reports average 6 to 10%. Patient will receive a letter notifying them of these results.
--- NOTE | 2022-12-19 | DI.CT_ITS ---
Exam(s) CT CHEST WO EXAM: CT CHEST WO CLINICAL HISTORY: F/U PULMONARY NODULE, J98.4. TECHNIQUE: Imaging protocol: Axial computed tomography images were obtained and coronal and sagittal reformatted images were created and reviewed. COMPARISON: CT CT CHEST WO from 01/05/2022 FINDINGS: Tracheobronchial tree: Patent where visualized. Pulmonary parenchyma: There are stable pulmonary nodules. The largest are in the periphery of the le ft lower lobe measure 5 mm. No new pulmonary nodules are present. No focal consolidating infiltrate s are seen. No architectural distortion. Mediastinum and [place]: No dominant adenopathy or fluid collection. The esophagus is unremarkable. Thyroid gland: Unremarkable. Pleura: No effusion or pneumothorax. Heart: The heart is not dilated. Mild coronary artery calcification is present. No pericardial effus ion. Aorta: Thoracic aorta non-dilated. Atherosclerosis is present. Upper abdomen: Cholelithiasis. No biliary ductal dilatation. Lymph nodes: Within normal limits. Soft tissues: Unremarkable. Bones:Within normal limits for the patient's age. IMPRESSION: 1. Stable pulmonary nodules. No new pulmonary nodules are present. Follow-up examination in 12 [facility] hs should be considered for re-evaluation of the pulmonary nodules. 2. Cholelithiasis. No biliary ductal dilatation. RADIATION DOSE DELIVERED: 460.41mGy.cm Total DLP 460.41mGy.cm Total DLP DATA REPOSITORY: All CT scans at this facility are submitted to the National Radiology Data Registry (NRDR) Dose Index Registry (DIR) with the [employer] (ACR). RADIATION OPTIMIZATION: All CT scans at this facility use at least one of these dose optimization te chniques: automated exposure control; mA and/or kV adjustment per patient size (includes targeted exa ms where dose is matched to clinical indication); or iterative reconstruction.
== END 2022-12-19 04:08 ==
LOC: DI 03:51
PROVIDERS: PCP Nurse Practitioner Family; Visit Provider Nurse Practitioner Family
DX: Z12.31 Encounter for screening mammogram for malignant neoplasm of breast (principal)
CPT/HCPCS: 71250; 77063; 77067

== ENCOUNTER 2022-12-20 04:28 | Outpatient (CLI) | payer MEDICARE, SELFPAY ==
--- NOTE | 2022-12-20 07:30 | DI.US_ITS ---
Exam(s) US ABDOMEN EXAM: US ABDOMEN CLINICAL HISTORY: diarrhea,abd bloating, gallstones on chest ct,r14.0,r19.7 TECHNIQUE: Ultrasound of complete upper abdomen performed using standard protocol. COMPARISON: CT scan 08/04/2021 FINDINGS: There is no ascites evident. LIVER: There are no hepatic lesions evident nor obvious dilatation of intrahepatic ducts. GALLBLADDER/BILIARY: 2 shadowing 1.5 cm gallstones are noted. No gallbladder wall edema nor perichol ecystic fluid. Patient was not tender over this area during scanning today. The common hepatic duct isnot dilated, measuring 3mm at the level of kian hepatis. PANCREAS: There is no evidence of pancreatic mass nor dilatation of the pancreatic duct. SPLEEN: The spleen is not enlarged and there are no intrasplenic lesions evident. KIDNEYS:Kidneys exhibit normal size with no evidence of solid mass, calculus, nor hydronephrosis. No cortical cysts evident. ABDOMINAL AORTA: There is no evidence of abdominal aortic aneurysm. IVC: Normal diameter where visualized. IMPRESSION: 1. Cholelithiasis as described above but no evidence cholecystitis. 2. No other significant ultrasound findings in the upper abdomen. 3. There is no ascites. DATA REPOSITORY:
== END 2022-12-20 04:48 ==
LOC: DI 04:28
PROVIDERS: PCP Nurse Practitioner Family; Visit Provider Surgery
DX: K80.20 Calculus of gallbladder without cholecystitis without obstruction (principal); R14.0 Abdominal distension (gaseous); R19.7 Diarrhea, unspecified
CPT/HCPCS: 76700

== ENCOUNTER 2022-12-26 02:23 | Outpatient (CLI) | payer MEDICARE, SELFPAY ==
--- NOTE | 2022-12-26 14:50 | DI.US_ITS ---
APPROVED REPORT EXAM: Comprehensive 2D, Doppler, and color-flow Echocardiogram Patient Location: Out-Patient Seed Analyst: Avis Rock RDCS (AE) Indications: Heart murmur, positional vertigo, DM Other Information Study Quality: Adequate Conclusion Normal left ventricular wall thickness and chamber size. Ejection fraction is 60 to 65%. Wall motio n is normal Normal right ventricular size and systolic function Both atria are normal in size Aortic valve is mildly sclerotic and trileaflet without stenosis or regurgitation Normal mitral valve with mild to moderate regurgitation Estimated right ventricular systolic pressure is 19 mmHg Wall motion Left Ventricle The left ventricle is normal size. The left ventricular systolic function is normal. The left ventric ular ejection fraction is within the normal range. There is normal left ventricular wall thickness. T here is normal LV segmental wall motion. There is no ventricular septal defect visualized. LVEF is 60 -65%. Right Ventricle The right ventricle is normal size. The right ventricular systolic function is normal. Atria The left atrium size is normal. The right atrium size is normal. The interatrial septum is intact wit h no evidence for an atrial septal defect. Aortic Valve The Aortic valve is mildly sclerotic. Aortic valve is trileaflet. No hemodynamically significant hill vular aortic stenosis. No aortic regurgitation is present. Mitral Valve The mitral valve is normal in structure. No evidence of mitral valve stenosis. Mild to moderate henri ral regurgitation. Tricuspid Valve The tricuspid valve is normal in structure. There is no tricuspid valve stenosis. Trace tricuspid reg urgitation. Pulmonic Valve The pulmonary valve is normal in structure. There is no pulmonic valvular stenosis. Trace pulmonic re gurgitation. Great Vessels The aortic root is normal in size. Ascending aorta is not well visualized. Aortic arch is normal in c aliber. IVC is normal in size and collapses >50% with inspiration. Pericardium There is no pericardial effusion. 2D Dimensions IVSD d PLAX 0.80 cm F: 0.6-1.0 LV Vol A2C d MOD 73.9 mL LVPW d PLAX 0.81 cm F: 0.6 - 1.0 LV Vol A4C d MOD 71.3 mL LVID d PLAX 4.31 cm F: 3.8 - 5.2 LA vol/ BSA A2C s A-L 36.3 mL/m2 LVDs 2.75 cm F: 2.2 - 3.5 LA vol/ BSA A4C s A-L 26.4 mL/m2 Ao Root d 2.80 cm F: 2.7 - 3.3 LA Vol/ BSA Biplane s A-L 31.4 mL/m2 RA Area A4C 11.27 cm2 LA Area A4C s MOD 16.73 cm2 RA Vol/ BSA A4C s A-L 15.0 mL/m2 LA Area A2C s MOD 19.89 cm2 LV EF Teichholz 64.8 % LV EF A4C MOD 59.1 % LVEF (Prince's) 58.77 % F: 54 - 74 LV EF A2C MOD 58.5 % LV Volume 58.31 mL F: 46 - 106 LV EF Biplane MOD 58.8 % LV Volume Index 34.50 mL/m2 F: 29 - 61 SV 43.08 mL LV Vol Biplane MOD 73.3 mL SV Index 25.47 mL/m2 FS 35.20 % M-Mode TAPSE 1.90 cm (M/F) >1.7 LV Diastology MV E' medial 0.080 (>0.07 m/s) E/A Ratio 0.8 LV E/e MED 10.25 (<14) MV E Vmax 0.82 (0.4-1.3 m/s) MV E' lateral 0.073 (>0.1 m/s) MV A Vmax 1.05 (0.4-1.3 m/s) LV E/e LAT 11.15 (<14) MV E/A Ratio 0.78 MV E/E' medial 10.26 MV E/E' lateral 11.17 Aortic Valve LVOT Area 3.08 cm2 AoV Area Vmax 2.03 cm2 LVOT Vmax 1.37 m/s AoV Area/ BSA (Vmax) 1.20 cm2/m2 LVOT Mean Conner. 0.99 m/s VENKATA Mean Conner. 2.04 cm2 LVOT Peak Grad 7.5 mmHg VENKATA Mean Conner. Index 1.21 cm2/m2 LVOT Mean Grad 4.4 mmHg LVOT VTI 0.306 m LVOT Diam s 1.95 cm AoV Vmax 2.07 m/s Velocity Ratio 0.66 AoV Mean Conner. 1.49 m/s AoV Peak Grad 17.1 mmHg LVOT SV 94.16 mL AoV Mean Grad 9.9 mmHg AoV VTI 0.444 m AoV Area VTI 2.12 cm2 AoV Area/ BSA (VTI) 1.25 cm/m2 Mitral Valve MV DT 247 (160-240 msec) MV PHT 72 msec MV Area PHT 3.07 cm2 MV VTI 0.384 m MV Area VTI 2.45 (4.0-6.0 cm2) Pulmonary Valve PV Vmax 0.97 (0.5-1.5 m/s) RVOT Peak Gr. 2.11 mmHg PV Peak Grad 3.8 mmHg RVOT Mean Gr. 1.20 mmHg PV Mean Grad 2.0 mmHg RVOT VTI 0.167 m PV VTI 0.195 m RVOT Vmax 0.73 m/s Tricuspid Valve TR Peak Grad 16.2 mmHg TR Vmax 2.02 m/s RA Pressure 3.00 mmHg RVSP (TR) 19.3 mmHg
== END 2022-12-26 02:43 ==
LOC: DI 02:23
PROVIDERS: PCP Nurse Practitioner Family; Visit Provider Surgery
DX: E11.9 Type 2 diabetes mellitus without complications (principal); E78.5 Hyperlipidemia, unspecified; H81.11 Benign paroxysmal vertigo, right ear; R01.1 Cardiac murmur, unspecified; Z86.79 Personal history of other diseases of the circulatory system; Z87.898 Personal history of other specified conditions
CPT/HCPCS: 93306

== ENCOUNTER → 2023-01-09 11:09 | Outpatient (BNVA) | payer MEDICARE, SELFPAY | PROVIDERS: PCP Nurse Practitioner Family; Referring Provider Nurse Practitioner Family; Visit Provider Surgery | DX: Z12.11 Encounter for screening for malignant neoplasm of colon (principal); R19.7 Diarrhea, unspecified | CPT/HCPCS: 36415; 99212 ==

== ENCOUNTER 2023-01-09 11:31 | Outpatient (REF) | payer MEDICARE, SELFPAY ==
[2023-01-09 13:56] LABS: Calculated LDL 102 mg/dL (<100); Cholesterol 194 mg/dL (<200); HDL Cholesterol 72 mg/dL (40-60); Triglyceride 103 mg/dL (<150)
== END 2023-01-09 11:32 | disposition home or self-care (01) ==
LOC: LBN 11:31
PROVIDERS: PCP Nurse Practitioner Family; Visit Provider Surgery
DX: E78.5 Hyperlipidemia, unspecified (principal); E11.9 Type 2 diabetes mellitus without complications; K80.20 Calculus of gallbladder without cholecystitis without obstruction
CPT/HCPCS: 80061

== ENCOUNTER 2023-01-11 06:06 | Day surgery (SDC) | payer MEDICARE, SELFPAY ==
[2023-01-11 06:28] VITALS: BP 146/69; PULSE 77; RESP 16; TEMP 36.4; O2SAT 98
[2023-01-11] MEDS: Lactated Ringers 1,000 ML 80 ML IV (06:44)
--- NOTE | 2023-01-11 07:17 | ANES.PREOP_ITS ---
General Info Date of Service Date Performed: 01/11/23 Height: 5 ft 2 in Weight: 65.2 kg Body Mass Index (BMI): 26.2 Surgical Procedure: Operation Date: 01/11/23 07:35 Proposed Procedure Side Surgeon p Colonoscopy Tavo Trent MD Actual Procedure Side Surgeon p Colonoscopy Not Applicable Tavo Trent MD Meds Allergies and Home Medications Allergies Allergy/AdvReac Type Severity Reaction Status Date / Time empagliflozin Allergy Severe severe Verified 01/11/23 06:25 [From Jardiance] blood in urine meperidine HCl [From Demerol] Allergy Severe Pt states Verified 01/11/23 06:25 caused hospitalization lisinopril AdvReac Intermediate cough Verified 01/11/23 06:25 Home Medication Medication Instructions Recorded aspirin 81 mg tablet,delayed 81 mg PO DAILY 07/12/14 release (Aspir-) ibuprofen 600 mg tablet 600 mg PO Q6H PRN PRN Pain #25 tabs 01/06/16 multivitamin (Multi-Day tablet) 1 tab PO DAILY 01/06/16 calcium carbonate 500 mg calcium 500 mg PO DAILY 01/24/19 (1,250 mg) tablet (Calcium 500) cholecalciferol (vitamin D3) 25 1,000 unit PO DAILY 01/24/19 mcg (1,000 unit) capsule (Vitamin D3) cyanocobalamin (vitamin B-12) 1,000 mcg PO DAILY 01/24/19 1,000 mcg tablet (Vitamin B-12) enalapril maleate 5 mg tablet 5 mg PO DAILY 01/24/19 lovastatin 20 mg tablet 20 mg PO DAILY 01/24/19 metformin 1,000 mg tablet 1,000 mg PO BID 01/24/19 vitamin E 268 mg (400 unit) capsule 400 unit PO DAILY 01/24/19 ascorbic acid (vitamin C) 500 mg 500 mg PO DAILY 07/05/21 capsule diphenhydramine HCl 25 mg tablet 25 mg PO DAILY PRN 07/26/21 Current Visit Medications: Current Medications Generic Name Dose Route Start Last Admin Trade Name Freq PRN Reason Stop Dose Admin Ringer's Solution 1,000 mls @ 80 mls/hr 01/11/23 06:00 01/11/23 06:44 IV 02/09/23 23:59 80 mls/hr INFUSION GENET Administration IV Miscellaneous Supplies 1 each 01/11/23 06:00 Iv Access IV 02/09/23 23:59 DIRECTED GENET Sodium Chloride 0 ml 01/11/23 06:00 Normal Saline Flush 10 Ml Syr IV 02/09/23 23:59 PRN PRN Sodium Chloride 0 ml 01/11/23 06:00 Normal Saline 10 Ml Vial IJ 02/09/23 23:59 DIRECTED PRN Sterile Water 0 ml 01/11/23 06:00 Water,Injection,Sterile 10 Ml Vial IJ 02/09/23 23:59 DIRECTED PRN PFSH Active Problems Active Problems: Problem Status Onset Code Tendinitis of right wrist M77.8 Diabetes E11.9 Hyperlipidemia E78.5 Otitis externa H60.90 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 pt. states her PCP told her this Hx of solitary pulmonary nodule pt. reports couple Migraine headache with aura Osteopenia Pulmonary nodule Seasonal allergies Soft tissue mass Surgical History Surgical History History of surgery on right wrist Hx of removal of cyst Left upper arm Hx of tonsillectomy Tobacco Smoking/Tobacco Use Status: Never Alcohol Alcohol Intake: current Alcohol intake frequency: holidays/special occasions only Substance Use Substance use: Never Substance use type: does not use Vital Signs and Lab Results Vital Signs Most Recent Vital Signs in EMR: Most Recent Vital Signs Temp Pulse Resp BP Pulse Ox 36.4 C L 77 16 146/69 H 98 01/11/23 06:28 01/11/23 06:28 01/11/23 06:28 01/11/23 06:28 01/11/23 06:28 Lab Results Blood Type / Crossmatch: No Data to Display Complete Blood Count: No Data to Display Complete Metabolic Panel: No Data to Display Liver Function Panel: No Data to Display Coagulation Panel: No Data to Display Cardiac Panel: No Data to Display Arterial Blood Gas: No Data to Display Venous Blood Gas: No Data to Display Pancreas Panel: No Data to Display Thyroid Panel: No Data to Display Infectious Disease: No Data to Display Blood Cultures: No Data to Display Toxicology Panel: No Data to Display Imaging and Studies Imaging and Studies Study information below may be from another EMR and interpreted by another provider. Please see original notes in EMR for more complete details. EKG Summary: DATE/TIME OF SERVICE: 03/01/22720 : 1950PERFORMING LOCATION: ER APPROVED REPORT Exam: Resting ECG Reason for Exam: dizzy Patient Location: HR:63 bpm ECG Measurements Heart Rate 63 AXIS VT 161 P 81 QRSd 77 QRS -9 QT 425 T38 QTc 437 Conclusion Sinus rhythm...normal P axis, V-rate 60- 99 Low voltage, precordial leads...precordial leads <1.0mV Echocardiogram Summary: Date of Exam: 12/26/22Sex: F Admission Date: 12/26/22 : 1950 Age: 72 APPROVED REPORT EXAM: Comprehensive 2D, Doppler, and color-flow Echocardiogram Patient Location: Out-Patient Science Editor: Avis Rock RDCS (AE) Indications: Heart murmur, positional vertigo, DM Other Information Study Quality: Adequate Conclusion Normal left ventricular wall thickness and chamber size. Ejection fraction is 60 to 65%. Wall motion is normal Normal right ventricular size and systolic function Both atria are normal in size Aortic valve is mildly sclerotic and trileaflet without stenosis or regurgitation Normal mitral valve with mild to moderate regurgitation Estimated right ventricular systolic pressure is 19 mmHg Anesthesia Assessment and Plan Anesthesia History Personal History: No History of Anesthesia Complications Family History: No Family History of Anesthesia Complications Exercise Tolerance Exercise Tolerance: Metabolic Equivalents>4 Pertinent Negatives Pertinent Negatives: No Symptoms of GERD and No Major Pulmonary Symptoms or Complaints Cardiac & Pulmonary Exam Cardiac Exam: Normal S1/S2 Heart Sounds Pulmonary Exam: Clear Bilateral Breath Sounds Implantable Cardiac Device Does patient have a Pacemaker or an ICD?: No Airway Exam Known Difficult Airway: No Mallampati Class: 2 Mouth Opening: Normal (> 3cm) Thyromental Distance: Greater than 3 cm Neck Range of Motion: Full ROM Neck Circumference: Normal Teeth Condition: Normal Dentition ASA Classification ASA Score: ASA 3 Emergency Case?: No NPO Status NPO Status: NPO Clears >2 hours, Solids >8 hours Anesthesia Plan Resuscitation Status: Full Code Anesthesia Technique: General Anesthesia Airway Planned: Natural Airway Monitors Used: Standard Monitors
[2023-01-11 07:21] VITALS: BMI 26.2
--- NOTE | 2023-01-11 08:09 | BOWEL_PTH ---
PATIENT: La Watson LOC: [facility] U#:[id number] AGE/SX: 72/F ROOM: RE01/11/[address]: Tavo Trent : 1950 BED: DIS: 01/11/2023 SPEC #: [id number] RECD: 01/11/23 12:42 STATUS: DAWN RE #: [id number] KAYLIN: 01/11/23 08:[address]: Tavo Trent DEPT: Surgical Specimen RECD BY: Flor Cadena ENTERED: 01/11/23 12:42 SP TYPE: Bowel OTHR DR: Marina Yi Tissues: 1 - BIOPSY BOWEL Procedures: GROSS AND MICRO LEVEL 4 Comments: [id number]
--- NOTE | 2023-01-11 08:16 | W.COLOREPORT ---
Date of service: 01/11/23 Time of Service: 08:16 Colonoscopy Report Procedure Description: Procedures performed: 1. Colonoscopy with cold forceps biopsies Preoperative diagnosis: Surveillance colonoscopy, chronic diarrhea Postoperative diagnosis: pandiverticulosis Surgeon: Roselia Trent Anesthesia: Wilian Indication for procedure:72 year old woman with chronic diarrhea, off/on for the last 6 months. This is new for her. She has a family history of colon cancer in a grandfather. Findings: The patient's colon is very long and very tortuous, especially in the transverse colon. I was able to get into the cecum and visualize the ileocecal valve but I was unable to intubate the terminal ileum.? Diverticular changes are present and scattered throughout the entire colon. No polyps were seen. I took multiple, random biopsies throughout the colon mucosa and rectal mucosa to rule out microscopic colitis. No significant hemorrhoidal disease. Surveillance/follow-up recommendations: 10 years -pathology shows microscopic colitis, patient should follow-up with her PCP to discuss medication changes and other possible etiologies Complications: None Blood loss: Minimal Prep: Excellent Procedure in detail: Written consent was obtained from the patient who was in agreement with the risks, benefits and indications of the procedure.? The patient was turned from her upper endoscopy (see separate procedure note) and anesthesia was continued and the patient was kept in the same position I started the colonoscopy portion of the procedure.? Digital rectal exam and visual examination was performed.? Normal sphincter tone.? A well?lubricated colonoscope was advanced without difficulty all the way to the cecum identified by the ileocecal valve, and triangular folds and appendiceal orifice.?? It was then slowly withdrawn.?? Retroflexion was performed in the rectum.? The findings/interventions are noted above. The scope was then removed and the patient tolerated the procedure well and was then taken back to the PACU in hemodynamically stable condition
[2023-01-11 08:22] VITALS: BP 137/73; PULSE 88; RESP 24; TEMP 36.3; O2SAT 97
[2023-01-11 08:55] VITALS: BP 121/74; PULSE 73; RESP 16; TEMP 36.4; O2SAT 98
--- NOTE | 2023-01-11 09:07 | W.ANESPOSTOP ---
Postoperative Evaluation Date, Time and Location Date Performed: 01/11/23 Time Performed: 09:08 Patient Location: Day Surgery Unit Vital Signs Most Recent Imported Vital Signs: Most Recent Vital Signs Temp Pulse Resp BP Pulse Ox 36.4 C L 73 16 121/74 98 01/11/23 08:55 01/11/23 08:55 01/11/23 08:55 01/11/23 08:55 01/11/23 08:55 Pain Score Most Recent Pain Score: Most Recent Pain Score Pain Level 0 01/11/23 08:55 Assessment Mental Status: Awake (Alert & Oriented to Patient Baseline) Airway and Respiratory Function: Patent airway with normal (patient baseline) respiratory exam Cardiovascular Function: Hemodynamically Stable Hydration Status: Adequately Hydrated Nausea & Vomiting: No Nausea or Vomiting Pain: Pt. Denies Any Pain Peripheral Nerve Block: Patient did not receive a nerve block
== END 2023-01-11 09:20 | disposition home or self-care (01) ==
PROVIDERS: PCP Nurse Practitioner Family; Visit Provider Student in an Organized Health Care Education/Training Program
PROC: 0DJD8ZZ Inspection of Lower Intestinal Tract, Via Natural or Artificial Opening Endoscopic (ICD-10-PCS; CPT 45378; principal; 2023-01-11 07:30)
DX: K52.9 Noninfective gastroenteritis and colitis, unspecified (principal); K57.30 Diverticulosis of large intestine without perforation or abscess without bleeding; Z80.0 Family history of malignant neoplasm of digestive organs
CPT/HCPCS: 45380; 88305

== ENCOUNTER → 2023-01-23 13:19 | Outpatient (BNVA) | payer MEDICARE, SELFPAY | PROVIDERS: PCP Nurse Practitioner Family; Referring Provider Nurse Practitioner Family; Visit Provider Surgery | DX: K52.9 Noninfective gastroenteritis and colitis, unspecified (principal) | CPT/HCPCS: 99213 ==

== ENCOUNTER 2023-10-10 14:31 | Outpatient (REF) | payer MEDICARE, SELFPAY ==
[2023-10-10 14:47] LABS: Hemoglobin A1C 7.6 % (<5.7)
[2023-10-10 15:29] LABS: Vitamin D 25 Total 35.1 ng/mL (30-100)
[2023-10-10 15:32] LABS: ALT 20 U/L (14-59); AST 13 U/L (15-37); Alkaline Phosphatase 80 U/L (46-116); Anion Gap 10.7 mmol/L (3-11); BUN 19 mg/dL (7-18); Bilirubin, Total 0.8 mg/dL (0.2-1.0); CO2 28.3 mmol/L (21.0-32.0); CREATININE 0.8 mg/dL (0.55-1.02); Chloride 103 mmol/L (98-107); Estimated GFR 77.27 (mL/min/1.73m2); Glucose 175 mg/dL (74-106); Magnesium 1.6 mg/dL (1.8-2.4); Sodium 142 mmol/L (136-145); Total Protein 6.9 g/dL (6.4-8.2); Vitamin B12 1030 pg/mL (193-986)
== END 2023-10-10 14:32 | disposition home or self-care (01) ==
LOC: NCHCN 14:31
PROVIDERS: PCP Nurse Practitioner Family; Referring Provider Nurse Practitioner Family; Visit Provider Nurse Practitioner Family
DX: E11.9 Type 2 diabetes mellitus without complications (principal); I10 Essential (primary) hypertension; E78.5 Hyperlipidemia, unspecified; M85.88 Other specified disorders of bone density and structure, other site; Z79.899 Other long term (current) drug therapy
CPT/HCPCS: 80053; 82306; 82607; 83036; 83735

== ENCOUNTER 2023-11-13 10:49 | Outpatient (REF) | payer MEDICARE, SELFPAY | END 2023-11-13 10:50 | disposition home or self-care (01) | LOC: NCHCN 10:49 | PROVIDERS: PCP Nurse Practitioner Family; Visit Provider Nurse Practitioner Family | DX: E11.9 Type 2 diabetes mellitus without complications (principal); E83.42 Hypomagnesemia | CPT/HCPCS: 83735 ==

== ENCOUNTER 2023-12-19 13:14 | Emergency (ER) | payer MEDICARE, SELFPAY ==
--- NOTE | 2023-12-19 13:15 | RT.EKG_ITS ---
APPROVED REPORT Exam: Resting ECG Reason for Exam: atypical back pain Patient Location: E HR:66 bpm ECG Measurements Heart Rate 66 AXIS MS 159 P 66 QRSd 75 QRS 31 QT 389 T 77 QTc 407 Conclusion Sinus rhythm...normal P axis, V-rate 60- 99 Anteroseptal infarct, age indeterminate...Q >35mS, T neg, V1-V2 Physician: no stemi
[2023-12-19 13:22] VITALS: BP 173/78; PULSE 90; RESP 20; TEMP 36.7; O2SAT 98
--- NOTE | 2023-12-19 14:15 | DI.CT_ITS ---
Exam(s) CT ABDOMEN PELVIS WO EXAM: CT ABDOMEN PELVIS WO CLINICAL HISTORY: right flank and baclk pain, eval for stone. TECHNIQUE: Imaging Protocol: Axial computed tomography images with coronal and sagittal reformatted images were created and reviewed. Oral: no COMPARISON: CT CT ABDOMEN WO/W from 08/04/2021 FINDINGS: Lung Bases: No acute findings. Stable left lower lobe nodules. Liver: Normal density. No suspicious mass. Gallbladder and biliary tract: A gallstones again noted. No gallbladder wall thickening or biliary dilatation. Pancreas: Normal density, no abnormal calcifications or inflammatory process. Spleen: Normal. Kidneys: Normal size, contour and axis. No radiodense stones or obstructive uropathy. No suspicious m asses seen. Adrenal glands: Stable mild thickening of the left adrenal gland. Lymph nodes: Within normal limits. Vasculature: Abdominal aorta non-dilated. Atherosclerotic changes. Soft tissues: Unremarkable. Bladder: Nearly empty. No mass or calculi. Bowel: No obstruction or bowel wall thickening. Moderate to increased quantity of stool. Diverticulo sis. Peritoneal cavity: No ascites, collection or mesenteric inflammatory response. Reproductive organs: Calcified fibroids. Bones: Unremarkable for age. IMPRESSION: No acute abnormality in the abdomen or pelvis. Cholelithiasis and diverticulosis again noted. RADIATION DOSE DELIVERED: 884.74mGy.cm Total DLP DATA REPOSITORY: All CT scans at this facility are submitted to the National Radiology Data Registry (NRDR) Dose Index Registry (DIR) with the [employer] (A[employer]). RADIATION OPTIMIZATION: All CT scans at this facility use at least one of these dose optimization te chniques: automated exposure control; mA and/or kV adjustment per patient size (includes targeted exa ms where dose is matched to clinical indication); or iterative reconstruction.
[2023-12-19 14:48] LABS: Abs Immature Grans 0.02 10^3/uL (0.0-0.06); Absolute Basophil Count 0.08 10^3/uL (0.0-0.2); Absolute Eosinophil Count 0.16 10^3/uL (0.0-0.7); Absolute Lymphocyte Count 2.47 10^3/uL (1.2-3.4); Absolute Monocyte Count 0.71 10^3/uL (0.1-0.8); Absolute Neutrophil Count 3.04 10^3/uL (1.2-6.7); Basophils % 1.2; Eosinophils % 2.5; HCT 35.9 % (36.0-46.0); HGB 11.6 g/dL (11.2-15.7); Immature Grans % 0.3; Lymphocytes % 38.1; MCH 29.7 pg (27.0-33.0); MCHC 32.3 % (32.0-36.0); MCV 92 fL (80-95); MPV 11.2 fL (8.0-11.0); Neutrophils % 46.9; Platelet Count 229 10^3/uL (130-400); RDW 12.7 % (11.7-14.6); RDW-SD 42.7 fL; WBC 6.48 10^3/uL (4.4-10.8)
[2023-12-19 15:08] LABS: ALT 20 U/L (14-59); AST 11 U/L (15-37); Albumin 3.4 g/dL (3.4-5.0); Alkaline Phosphatase 78 U/L (46-116); Anion Gap 9.7 mmol/L (3-11); BUN 13 mg/dL (7-18); Bilirubin, Total 0.3 mg/dL (0.2-1.0); CO2 25.3 mmol/L (21.0-32.0); CREATININE 0.8 mg/dL (0.55-1.02); Calcium 8.2 mg/dL (8.5-10.1); Chloride 104 mmol/L (98-107); Estimated GFR 77.27 (mL/min/1.73m2); Glucose 211 mg/dL (74-106); Potassium 3.8 mmol/L (3.5-5.1); Sodium 139 mmol/L (136-145); Total Protein 6.6 g/dL (6.4-8.2); Troponin I < 50 ng/L (< or =60)
--- NOTE | 2023-12-19 15:46 | ED.GENADUL_ITS ---
Discharge Plan Disposition Patient Disposition: Home Condition: Good Discharge Details Clinical Impression: Gallstones Primary Care Provider: Marina Yi ED Provider: Joni Horton Home Meds and New Rx's Prescriptions: No Action ascorbic acid (vitamin C) 500 mg capsule 500 mg PO DAILY aspirin [Aspir-81] 81 MG tablet,delayed release (DR/EC) 81 mg PO DAILY multivitamin [Multi-Day] 1 EACH tablet 1 tab PO DAILY ibuprofen 600 MG tablet 600 mg PO Q6H PRN PRN (Reason: Pain) Qty: 25 0RF vitamin E 400 unit Capsule 400 unit PO DAILY enalapril maleate 5 mg Tablet 5 mg PO DAILY cyanocobalamin (vitamin B-12) [Vitamin B-12] 1,000 mcg Tablet 1,000 mcg PO DAILY calcium carbonate [Calcium 500] 500 mg calcium (1,250 mg) Tablet 500 mg PO DAILY metformin 1,000 mg Tablet 1,000 mg PO BID lovastatin 20 mg Tablet 20 mg PO DAILY cholecalciferol (vitamin D3) [Vitamin D3] 1,000 unit Capsule 1,000 unit PO DAILY diphenhydramine HCl 25 mg Tablet 25 mg PO DAILY PRN Discharge Instructions Instructions: Gallstones (ED) Additional Instructions: At this time you have some notably sized gallstones that are likely causing your symptomatology. Please follow-up closely with Dr. De Los Santos at your scheduled appointment at 9:45 AM. Please do not miss this appointment. Your other appointments are at [phone] and [phone]. Please avoid any greasy foods, fatty foods, or dairy products. Please take 1000 mg of Tylenol every 6 hours as needed for pain. If you notice any worsening of your symptoms, or any new symptoms such as vomiting, diarrhea, fever, chills, shortness of breath, chest pain, numbness, weakness, or fainting , please return immediately to the emergency department for reevaluation. Please follow up with your primary care provider as soon as possible for reassessment and reevaluation. As always, it was a pleasure participating in your medical care today. Referrals: Marina Yi [Primary Care Provider] - Sita De Los Santos DO [OSTEOPATHIC DOCTOR] - [facility] General Date/Time Provider Initiated Documentation: 12/19/23 13:39 . HPI Narrative: 73-year-old female with a past medical history of chronic gallstones, cardiac murmur, high cholesterol, chronic lung nodules, diabetes type 2, presents today for evaluation of right flank pain. Patient states that symptoms have been present for the last 2 or 3 days, it is on the right flank. No wor sening with activity food or breathing. No chest pain. No vomiting or diarrhea. Patient goes from the right flank to the right shoulder. She denies any urinary discomfort. No vomiting or diarrhea. No other complaints at this time. She has taken some NSAIDs with mild improvement. However at this time she states that the pain has gone away and she does not have any pain currently. Related Data Home Medications Medication Instructions Recorded Confirmed aspirin 81 mg tablet,delayed 81 mg PO DAILY 07/12/14 01/23/23 release (Aspir-) ibuprofen 600 mg tablet 600 mg PO Q6H PRN PRN Pain #25 tabs 01/06/16 01/23/23 multivitamin (Multi-Day tablet) 1 tab PO DAILY 01/06/16 01/23/23 calcium carbonate (Calcium 500) 500 mg PO DAILY 01/24/19 01/23/23 cholecalciferol (vitamin D3) 25 1,000 unit PO DAILY 01/24/19 01/23/23 mcg (1,000 unit) capsule (Vitamin D3) cyanocobalamin (vitamin B-12) 1,000 mcg PO DAILY 01/24/19 01/23/23 1,000 mcg tablet (Vitamin B-12) enalapril maleate 5 mg tablet 5 mg PO DAILY 01/24/19 01/23/23 lovastatin 20 mg tablet 20 mg PO DAILY 01/24/19 01/23/23 metformin 1,000 mg tablet 1,000 mg PO BID 01/24/19 01/23/23 vitamin E 268 mg (400 unit) capsule 400 unit PO DAILY 01/24/19 01/23/23 ascorbic acid (vitamin C) 500 mg 500 mg PO DAILY 07/05/21 01/23/23 capsule diphenhydramine HCl 25 mg tablet 25 mg PO DAILY PRN 07/26/21 01/23/23 Previous Rx's Medication Instructions Recorded ibuprofen 600 mg tablet 600 mg PO Q6H PRN PRN Pain #25 tabs 01/06/16 Allergies Allergy/AdvReac Type Severity Reaction Status Date / Time empagliflozin Allergy Severe severe Verified 01/23/23 13:41 [From Jardiance] blood in urine meperidine HCl [From Demerol] Allergy Severe Pt states Verified 01/23/23 13:41 caused hospitalization lisinopril AdvReac Intermediate cough Verified 01/23/23 13:41 General Stated Complaint: Nk/Back Pain JOE: 3 Review of Systems All systems reviewed & are unremarkable except as noted in HPI and below Exam Narrative Exam Narrative: 1.Const: Well-nourished, Well-developed, appearing stated age 2.Eyes: PERRL, no conjunctival injection, and symmetrical lids. 3.ENT: Atraumatic external nose and ears. Moist MM. Neck: Symmetric, trachea midline, No thyromegaly. 4.CVS: +S1/S2, mild murmur. Peripheral pulses 2+ and equal in all extremities. Brisk capillary refill in all extremities. 5.RESP: Unlabored respiratory effort. Clear to auscultation bilaterally. No wheezes rales or rhonchi 6.GI: Soft, Nontender/Nondistended, No hepatosplenomegaly. No guarding or rebound. No CVA tenderness. No flank pain on percussion. Minimal achiness in right upper quadrant. No guarding or rebound. No pain at McBurney's point, negative Palma sign. 7.MSK: Normocephalic/Atraumatic, Extremities w/o deformity or ttp No cyanosis or clubbing, Normal movement of all extremities 8.Skin: Warm, Dry. No rashes or lesions. 9.Neuro: invasive cardiovascular technologist II-XII grossly intact. Sensation grossly intact, no focal neurologic deficits. 10.Psych: (AAO) x3. Appropriate mood and affect Course Vital Signs Vital signs: Vital Signs Temperature 36.7 C 12/19/23 13:22 Pulse 90 12/19/23 13:22 Respiratory Rate 20 12/19/23 13:22 Blood Pressure 173/78 H 12/19/23 13:22 Pulse Oximetry 98 12/19/23 13:22 Temperature 36.7 C 12/19/23 13:22 Temperature Source Tympanic 12/19/23 13:22 Pulse 90 12/19/23 13:22 Respiratory Rate 20 12/19/23 13:22 Respiratory Effort Normal 12/19/23 13:26 Blood Pressure 173/78 H 12/19/23 13:22 Blood Pressure Position Sitting 12/19/23 13:22 Pulse Oximetry 98 12/19/23 13:22 Oxygen Delivery Method Room Air 12/19/23 13:22 Oxygen Flow Rate 0 12/19/23 13:22 Pain Level 10 12/19/23 13:22 Lab/Test Results Lab/Test Results: Laboratory Tests Range/Units 12/19/23 14:40 WBC (4.4-10.8) 10^3/uL 6.48 RBC (3.93-5.22) 10^6/uL 3.90 L Hgb (11.2-15.7) g/dL 11.6 Hct (36.0-46.0) % 35.9 L MCV (80-95) fL 92 MCH (27.0-33.0) pg 29.7 MCHC (32.0-36.0) % 32.3 RDW (11.7-14.6) % 12.7 Plt Count (130-400) 10^3/uL 229 MPV (8.0-11.0) fL 11.2 H Immature Gran % 0.3 Neutrophils % 46.9 Lymphocytes % 38.1 Monocytes % 11.0 Eosinophils % 2.5 Basophils % 1.2 Nucleated RBC % (0.0-0.3) % 0.0 Absolute Neutrophils (1.2-6.7) 10^3/uL 3.04 Absolute Lymphocytes (1.2-3.4) 10^3/uL 2.47 Absolute Monocytes (0.1-0.8) 10^3/uL 0.71 Absolute Eosinophils (0.0-0.7) 10^3/uL 0.16 Absolute Basophils (0.0-0.2) 10^3/uL 0.08 Sodium (136-145) mmol/L 139 Potassium (3.5-5.1) mmol/L 3.8 Chloride (98-107) mmol/L 104 Carbon Dioxide (21.0-32.0) mmol/L 25.3 Anion Gap (3-11) mmol/L 9.7 BUN (7-18) mg/dL 13 Creatinine (0.55-1.02) mg/dL 0.8 Est GFR (CKD-EPI 2020) (mL/min/1.73m2) 77.27 Glucose (74-106) mg/dL 211 H Calcium (8.5-10.1) mg/dL 8.2 L Total Bilirubin (0.2-1.0) mg/dL 0.3 AST (15-37) U/L 11 L ALT (14-59) U/L 20 Alkaline Phosphatase (46-116) U/L 78 Troponin I (< or =60) ng/L < 50 Total Protein (6.4-8.2) g/dL 6.6 Albumin (3.4-5.0) g/dL 3.4 Medical Decision Making 73-year-old female with a past medical history of chronic gallstones, cardiac murmur, high cholesterol, chronic lung nodules, diabetes type 2, presents today for evaluation of right flank pain. Patient states that symptoms have been present for the last 2 or 3 days, it is on the right flank. No worsening with activity food or breathing. No chest pain. No vomiting or diarrhea. Patient goes from the right flank to the right shoulder. She denies any urinary discomfort. No vomiting or diarrhea. No other complaints at this time. She has taken some NSAIDs with mild improvement. However at this time she states that the pain has gone away and she does not have any pain currently. Exam demonstrates no right upper quadrant tenderness, no pain at McBurney's point, negative Palma sign. No flank or CVA tenderness. No urinary complaints. Concern is for gallbladder pathology, gallstones, kidney stone. Will evaluate for these, and treat the patient's pain with an NSAID, monitor closely and reassess. 3:[address] scan shows no evidence of kidney stone. There is evidence of notable cholelithiasis which seems to correlate with the area of the patient's symptomatology. No evidence of cholecystitis. Patient demonstrates normal troponin, normal EKG, no white count or bandemia or left shift. Normal electrolytes. Patient continues to remain pain-free. I do feel that there is likely component of biliary colic that is causing her symptomatology. I did contact surgery Dr. De Los Santos who has seen the patient before. She recommends close outpatient follow-up this at 9:45 AM. Patient will follow-up then. Patient otherwise feels well and is stable. No other complaints or abnormalities needing urgent management. Discussed red flags for which to return. I have extensively reviewed the treatment plan and discharge instructions with the patient. I have addressed all patient concerns at this time. The patient was made aware of what symptoms to monitor for that would warrant a return to the emergency department. Discussed the plan with the patient, they demonstrate verbal understanding and agreement with our assessment and plan at this time. The documentation in this chart was dictated using [employer] dictation software. Please excuse any dictation errors. FINDINGS: Lung Bases: No acute findings. Stable left lower lobe nodules. Liver: Normal density. No suspicious mass. Gallbladder and biliary tract: A gallstones again noted. No gallbladder wall thickening or biliary dilatation. Pancreas: Normal density, no abnormal calcifications or inflammatory process. Spleen: Normal. Kidneys: Normal size, contour and axis. No radiodense stones or obstructive uropathy. No suspicious masses seen. Adrenal glands: Stable mild thickening of the left adrenal gland. Lymph nodes: Within normal limits. Vasculature: Abdominal aorta non-dilated. Atherosclerotic changes. Soft tissues: Unremarkable. Bladder: Nearly empty. No mass or calculi. Bowel: No obstruction or bowel wall thickening. Moderate to increased quantity of stool. Diverticulosis. Peritoneal cavity: No ascites, collection or mesenteric inflammatory response. Reproductive organs: Calcified fibroids. Bones: Unremarkable for age. IMPRESSION: No acute abnormality in the abdomen or pelvis. Cholelithiasis and diverticulosis again noted. RADIATION Quality:SDOH Health Related Social Needs: No Data to Display PFSH All Active Problems (Updated 12/19/23 @ 15:55 by Joni Horton DO) Gallstones (Acute) Diarrhea (Acute) Abdominal bloating (Acute) Diverticula of colon (Acute) Holosystolic murmur (Acute) Benign paroxysmal positional vertigo of right ear (Acute) Perforation of left tympanic membrane (Acute) Lipoma of chest wall (Acute) Mixed conductive and sensorineural hearing loss of left ear with restricted hearing of right ear (Acute) Sensorineural hearing loss (SNHL) of right ear with restricted hearing of left ear (Acute) Otitis externa (Acute) Hyperlipidemia (Acute) Diabetes (Acute) fd: 130's Tendinitis of right wrist (Chronic) Medical History Migraine headache with aura Gallstones Seasonal allergies Gross hematuria Pulmonary nodule Adrenal adenoma Breasts asymmetrical Abdominal pain Soft tissue mass Hx of solitary pulmonary nodule pt. reports couple Osteopenia Degenerative joint disease Hx of cardiac murmur per. pt. states her PCP told her this Surgical History History of surgery on right wrist Hx of removal of cyst Left upper arm Hx of tonsillectomy Social History Smoking/Tobacco Use Status: Never Smoking risk assessment performed?: Yes Alcohol Intake: current Alcohol Intake frequency: holidays/special occasions only Drug use: Never Substance use type: does not use Current gender identity: female Do you feel safe at home: Yes Do you feel safe in your relationship?: Yes
[2023-12-19 15:52] LABS: Bilirubin Negative (Negative); Blood Negative (Negative); Clarity Clear (Clear); Glucose Negative (Negative); Ketones Negative (Negative); Leukocyte Esterase Trace (Negative); Nitrite Negative (Negative); Specific Gravity <= 1.005 (1.005-1.025); Urobilinogen 0.2 mg/dL (Up to 0.2); pH 5.5 (5-8)
[2023-12-19 15:59] LABS: Bacteria Few HPF (Negative); C & S Indicated? Yes; Casts Negative LPF (Negative); Crystals Negative HPF (Negative); Epithelial Cells Few HPF (Negative); Mucus Negative (Negative); RBC 0-2 HPF (0-2)
== END 2023-12-19 16:29 | disposition home or self-care (01) ==
PROVIDERS: Emergency Provider Student in an Organized Health Care Education/Training Program; PCP Nurse Practitioner Family
DX: K80.20 Calculus of gallbladder without cholecystitis without obstruction (principal); R01.1 Cardiac murmur, unspecified; E11.9 Type 2 diabetes mellitus without complications; E78.5 Hyperlipidemia, unspecified; Z79.82 Long term (current) use of aspirin; Z79.84 Long term (current) use of oral hypoglycemic drugs
CPT/HCPCS: 80053; 93005; 99285; 74176; 81003; 81015; 84484; 85025; 87086; 93010

== ENCOUNTER → 2023-12-21 04:09 | Outpatient (CLI) | payer MEDICARE, SELFPAY ==
--- NOTE | 2023-12-21 | DI.DEXA_ITS ---
Exam(s) XR DEXA BONE DENSITY W/WO RAYA EXAM: XR DEXA BONE DENSITY W/WO RAYA CLINICAL HISTORY: Z78.0 Asymptomatic menopausal state TECHNIQUE: [employer] C densitometer analysis of left hip, lumbar spine and left forearm. Lat eral survey image of the thoracic and lumbar spine. COMPARISON: DX DEXA BONE DENSITY WITH RYAA from 10/24/2017 CR XR DEXA BONE DENSITY W/WO RAYA from 04/01/2021 FINDINGS: Lateral view of the thoracic and lumbar spine shows no evidence of compression fractures. Bone mineral density measurements of the lumbar spine correspond to a total T-score of 1.1, in the n ormal range. Not significantly changed from the prior exams. Bone mineral density measurements of the left hip correspond to a total T-score of -1.0, not signifi cantly changed from prior exams.. The femoral neck T-score is -2.1, in the osteopenic range.. Theleft forearm bone mineral density measurements correspond to a T-score of the distal 3rd of -1.2, in the osteopenic range.. IMPRESSION: Normal bone mineral density of the spine. Osteopenia of the hip and forearm.
--- NOTE | 2023-12-21 | DI.MAMMO_ITS ---
Exam(s) MAMMO SCREENING EXAM: MAMMO SCREENING CLINICAL HISTORY: Z12.31 Encounter for screening mammogram for malignant neoplasm of breast TECHNIQUE: Mammograms were interpreted according to the usual protocol including computer analysis w ith CAD system, tomosynthesis and C-view imaging. COMPARISON: 2013 through 2022 FINDINGS: The breasts are composed of scattered fibroglandular densities, Breast Density category B. No suspicious masses or suspicious microcalcifications are seen. No skin thickening or abnormal axillary lymph nodes are seen. There has been no significant change from prior exams. IMPRESSION: BI-RADS Category 1, Negative mammogram Yearly screening mammography is recommended. Breast Density - Category B, scattered fibroglandular densities. A negative radiographic report should not delay biopsy if a dominant or clinically suspicious mass is present. Up to ten percent of cancers are not identified on mammography. A negative report may reinforce clinical impression. Adenosis and dense breasts may obscure an underlying neoplasm. False positive reports average 6 to 10%. Patient will receive a letter notifying them of these results.
--- NOTE | 2023-12-21 08:10 | DI.CT_ITS ---
Exam(s) CT CHEST WO EXAM: CT CHEST WO CLINICAL HISTORY: DISORDER OF LUNG,J98.4,F/U PULMONARY NODULES TECHNIQUE: Imaging Protocol: Axial computed tomography images with coronal and sagittal reformatted images were created and reviewed CONTRAST MATERIAL: Intravenous: Omnipaque 350 Contrast volume:structured data ml. COMPARISON: CT CT ABDOMEN PELVIS W from 01/24/[address] CHEST WO from 12/19/2022 FINDINGS: Pulmonary parenchyma: No consolidation. Multiple bilateral scattered tiny pulmonary nodules are note d. Largest are in the left lower lobe measures 5 millimeters in size. These are stable since 2019. Tracheobronchial tree: No bronchiectasis or mucous plugging. Mediastinum and Nury: No dominant adenopathy or fluid collection. Pleura: No effusion. No pneumothorax. Heart: The heart is not dilated. Mild coronary artery calcifications are seen. Aorta: Thoracic aorta non-dilated. Mild atherosclerotic changes. Upper abdomen: No acute findings. Gallstones noted.. Bones: Degenerative changes in the spine. Soft tissues: Unremarkable. IMPRESSION: Stable pulmonary nodules. For multiple solid noncalcified nodules smaller than 6 mm in diameter, no routine follow-up is recomm ended (grade 2B; weak recommendation, moderate-quality evidence). (Gen et al., 2017) If the patient is at high risk for lung cancer a low-dose screening chest CT could be performed in 1 year. RADIATION DOSE DELIVERED: 427.18mGy.cm Total DLP DATA REPOSITORY: All CT scans at this facility are submitted to the National Radiology Data Registry (NRDR) Dose Index Registry (DIR) with the [employer] (ACR). RADIATION OPTIMIZATION: All CT scans at this facility use at least one of these dose optimization te chniques: automated exposure control; mA and/or kV adjustment per patient size (includes targeted exa ms where dose is matched to clinical indication); or iterative reconstruction.
== END ==
PROVIDERS: PCP Nurse Practitioner Family; Visit Provider Nurse Practitioner Family
DX: Z78.0 Asymptomatic menopausal state (principal); Z12.31 Encounter for screening mammogram for malignant neoplasm of breast; Z13.820 Encounter for screening for osteoporosis; J98.4 Other disorders of lung
CPT/HCPCS: 71250; 77063; 77067; 77080

== ENCOUNTER 2024-01-16 06:03 | Day surgery (SDC) | payer MEDICARE, SELFPAY ==
[2024-01-16] VITALS (10 sets, daily range): BP systolic 136–155; BP diastolic 60–73; PULSE 69–77; RESP 16–23; TEMP 36.2–36.6; O2SAT 96–100; BMI 28.6
[2024-01-16] MEDS: Lactated Ringers 1,000 ML 80 ML IV (06:35)
[2024-01-16] MEDS: Acetaminophen 500 MG TAB 1000 MG PO (06:39)
[2024-01-16] MEDS: Gabapentin 300 MG CAP 600 MG PO (06:39)
[2024-01-16] MEDS: Indocyanine green 25 MG VIAL 5 MG IVP (06:40)
--- NOTE | 2024-01-16 06:53 | ANES.PREOP_ITS ---
General Info Date of Service Date Performed: 01/16/24 Height: 5 ft 1.5 in Weight: 69.9 kg Body Mass Index (BMI): 28.6 Surgical Procedure: Operation Date: 01/16/24 07:40 Proposed Procedure Side Surgeon p Cholecystectomy Laparoscopic, possible open Sita De Los Santos, Meds Allergies and Home Medications Allergies Allergy/AdvReac Type Severity Reaction Status Date / Time empagliflozin Allergy Severe severe Verified 01/16/24 06:18 [From Jardiance] blood in urine meperidine HCl [From Demerol] Allergy Severe Pt states Verified 01/16/24 06:18 caused hospitalization lisinopril AdvReac Intermediate cough Verified 01/16/24 06:18 Home Medication Medication Instructions Recorded aspirin 81 mg tablet,delayed 81 mg PO DAILY 07/12/14 release (Aspir-) ibuprofen 600 mg tablet 600 mg PO Q6H PRN PRN Pain #25 tabs 01/06/16 multivitamin (Multi-Day tablet) 1 tab PO DAILY 01/06/16 calcium carbonate (Calcium 500) 500 mg PO DAILY 01/24/19 cholecalciferol (vitamin D3) 25 1,000 unit PO DAILY 01/24/19 mcg (1,000 unit) capsule (Vitamin D3) cyanocobalamin (vitamin B-12) 1,000 mcg PO DAILY 01/24/19 1,000 mcg tablet (Vitamin B-12) enalapril maleate 5 mg tablet 5 mg PO DAILY 01/24/19 lovastatin 20 mg tablet 20 mg PO DAILY 01/24/19 metformin 1,000 mg tablet 1,000 mg PO BID 01/24/19 vitamin E 268 mg (400 unit) capsule 400 unit PO DAILY 01/24/19 ascorbic acid (vitamin C) 500 mg 500 mg PO DAILY 07/05/21 capsule diphenhydramine HCl 25 mg tablet 25 mg PO DAILY PRN 07/26/21 loratadine 10 mg tablet 10 mg PO DAILY 01/16/24 magnesium oxide 400 mg (241.3 mg 400 mg PO HS PRN 01/16/24 magnesium) tablet Current Visit Medications: Current Medications Generic Name Dose Route Start Last Admin Trade Name Freq PRN Reason Stop Dose Admin Acetaminophen 1,000 mg 01/16/24 06:00 01/16/24 06:39 Acetaminophen 500 Mg Tab PO 01/16/24 23:59 1,000 mg PREOP GENET Administration Gabapentin 600 mg 01/16/24 06:00 01/16/24 06:39 Gabapentin 300 Mg Cap PO 01/16/24 23:59 600 mg PREOP GENET Administration Ringer's Solution 1,000 mls @ 80 mls/hr 01/16/24 06:00 IV 01/16/24 23:59 INFUSION GENET Cefazolin Sodium/Dextrose 2 gm in 50 mls @ 100 mls/hr 01/16/24 06:00 Ancef Duplex IVPB 01/16/24 23:59 PREOP GENET Ondansetron HCl 4 mg/ Sodium 52 mls @ 200 mls/hr 01/15/24 22:11 Chloride IVPB 02/14/24 22:10 Q6H PRN PRN IV Miscellaneous Supplies 1 each 01/16/24 06:00 Iv Access IV 01/16/24 23:59 DIRECTED GENET Indocyanine Green 5 mg 01/12/24 15:00 01/16/24 06:40 Indocyanine Green 25 Mg Vial IVP 02/11/24 14:59 5 mg DIRECTED GENET Administration Morphine Sulfate 2 mg 01/15/24 22:11 Morphine 4 Mg/Ml Syr IVP 02/14/24 22:10 Q1H PRN PRN Sodium Chloride 0 ml 01/16/24 06:00 Normal Saline Flush 10 Ml Syr IV 01/16/24 23:59 PRN PRN Sodium Chloride 0 ml 01/16/24 06:00 Normal Saline 10 Ml Vial IJ 01/16/24 23:59 DIRECTED PRN Sterile Water 0 ml 01/16/24 06:00 Water,Injection,Sterile 10 Ml Vial IJ 01/16/24 23:59 DIRECTED PRN Tramadol HCl 50 mg 01/15/24 22:11 Tramadol 50 Mg Tab PO 02/14/24 22:10 Q6H PRN PRN Pain PFSH Active Problems Active Problems: Problem Status Onset Code Gallstones K80.20 Diarrhea R19.7 Abdominal bloating R14.0 Diverticula of colon K57.30 Holosystolic murmur R01.1 Benign paroxysmal positional vertigo of right ear H81.11 Perforation of left tympanic membrane H72.92 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 reports couple Osteopenia Degenerative joint disease Hx of cardiac murmur per. pt. states her PCP told her this Medical History Comments:: All meds taken 2 days ago; chronic neck pain / Surgical History Surgical History History of surgery on right wrist Hx of removal of cyst Left upper arm Hx of tonsillectomy Tobacco Smoking/Tobacco Use Status: Never Alcohol Alcohol Intake: current Alcohol intake frequency: holidays/special occasions only Substance Use Substance use: Never Substance use type: does not use Vital Signs and Lab Results Vital Signs Most Recent Vital Signs in EMR: Most Recent Vital Signs Temp Pulse Resp BP Pulse Ox 36.6 C 70 16 155/69 H 97 01/16/24 06:25 01/16/24 06:25 01/16/24 06:25 01/16/24 06:25 01/16/24 06:25 Point of Care Results Point of Care Results: Finger Stick Blood Glucose 171 01/16/24 06:22 Lab Results Blood Type / Crossmatch: No Data to Display Complete Blood Count: White Blood Count 6.48 10^3/uL (4.4-10.8) 12/19/23 14:40 Red Blood Count 3.90 10^6/uL (3.93-5.22) L 12/19/23 14:40 Hemoglobin 11.6 g/dL (11.2-15.7) 12/19/23 14:40 Hematocrit 35.9 % (36.0-46.0) L 12/19/23 14:40 Platelet Count 229 10^3/uL (130-400) 12/19/23 14:40 Complete Metabolic Panel: Sodium 139 mmol/L (136-145) 12/19/23 14:40 Potassium 3.8 mmol/L (3.5-5.1) 12/19/23 14:40 Chloride 104 mmol/L (98-107) 12/19/23 14:40 Carbon Dioxide 25.3 mmol/L (21.0-32.0) 12/19/23 14:40 BUN 13 mg/dL (7-18) 12/19/23 14:40 Creatinine 0.8 mg/dL (0.55-1.02) 12/19/23 14:40 Est GFR (CKD-EPI 2020) 77.27 (mL/min/1.73m2) 12/19/23 14:40 Calcium 8.2 mg/dL (8.5-10.1) L 12/19/23 14:40 Albumin 3.4 g/dL (3.4-5.0) 12/19/23 14:40 Glucose 211 mg/dL (74-106) H 12/19/23 14:40 Liver Function Panel: Alanine Aminotransferase (ALT/SGPT) 20 U/L (14-59) 12/19/23 14: 40 Aspartate Amino Transf (AST/SGOT) 11 U/L (15-37) L 12/19/23 14: 40 Coagulation Panel: 2 No Data to Display Cardiac Panel: Troponin I < 50 ng/L (< or =60) 12/19/23 Arterial Blood Gas: No Data to Display Venous Blood Gas: No Data to Display Pancreas Panel: No Data to Display Thyroid Panel: No Data to Display Infectious Disease: No Data to Display Blood Cultures: No Data to Display Toxicology Panel: No Data to Display Imaging and Studies Imaging and Studies Study information below may be from another EMR and interpreted by another provider. Please see original notes in EMR for more complete details. EKG Summary: DATE/TIME OF SERVICE: 03/01/22720 : 1950PERFORMING LOCATION: ER APPROVED REPORT Exam: Resting ECG Reason for Exam: dizzy Patient Location: E HR:63 bpm ECG Measurements Heart Rate 63 AXIS AL 161 P 81 QRSd 77 QRS -9 QT 425 T38 QTc 437 Conclusion Sinus rhythm...normal P axis, V-rate 60- 99 Low voltage, precordial leads...precordial leads <1.0mV Echocardiogram Summary: Date of Exam: 12/26/22Sex: F Admission Date: 12/26/22 : 1950 Age: 72 APPROVED REPORT EXAM: Comprehensive 2D, Doppler, and color-flow Echocardiogram Patient Location: Out-Patient [employer]: [place] [facility] ([place]) Indications: Heart murmur, positional vertigo, DM Other Information Study Quality: Adequate Conclusion Normal left ventricular wall thickness and chamber size. Ejection fraction is 60 to 65%. Wall motion is normal Normal right ventricular size and systolic function Both atria are normal in size Aortic valve is mildly sclerotic and trileaflet without stenosis or regurgitation Normal mitral valve with mild to moderate regurgitation Estimated right ventricular systolic pressure is 19 mmHg Anesthesia Assessment and Plan Anesthesia History Personal History: No History of Anesthesia Complications Family History: No Family History of Anesthesia Complications Exercise Tolerance Exercise Tolerance: Metabolic Equivalents>4 Pertinent Negatives Pertinent Negatives: No Symptoms of GERD and No Major Pulmonary Symptoms or Complaints Cardiac & Pulmonary Exam Cardiac Exam: Heart Murmur Present Pulmonary Exam: Clear Bilateral Breath Sounds Implantable Cardiac Device Does patient have a Pacemaker or an ICD?: No Airway Exam Known Difficult Airway: No Mallampati Class: 2 Mouth Opening: Normal (> 3cm) Thyromental Distance: Greater than 3 cm Neck Range of Motion: Full ROM Neck Circumference: Normal Teeth Condition: Normal Dentition ASA Classification ASA Score: ASA 2 Emergency Case?: No NPO Status NPO Status: NPO Clears >2 hours, Solids >8 hours Anesthesia Plan Resuscitation Status: Full Code Anesthesia Technique: General Anesthesia Airway Planned: Endotracheal Tube Monitors Used: Standard Monitors and SedLine Preoperative Comments:: Patient reports no knowledge of adrenal adenoma
[2024-01-16] MEDS: ceFAZolin 2 GM/50 ML BAG IVPB (07:43)
[2024-01-16] MEDS: Bupivacaine 0.25% Pres-Free W/EPI 30 ML VIAL (08:15)
[2024-01-16] MEDS: metroNIDAZOLE 500 MG/100 ML BAG 100 MG IVPB (08:22)
--- NOTE | 2024-01-16 08:48 | GB_PTH ---
PATIENT: La aWtson LOC: [facility] U#:[id number] AGE/SX: 73/F ROOM: RE01/16/[address]: Sita De Los Santos : 1950 BED: DIS: 01/16/2024 SPEC #: [id number] RECD: 01/16/24 13:07 STATUS: DAWN REFaviola #: [id number] KAYLIN: 01/16/24 08:[address]: Sita De Los Santos DEPT: Surgical Specimen RECD BY: Flor Cadena ENTERED: 01/16/24 13:08 SP TYPE: GB OTHR DR: Marina Yi Tissues: 1 - GALLBLADDER Procedures: GROSS AND MICRO LEVEL 3 Comments: [id number]
--- NOTE | 2024-01-16 09:13 | W.PM.DSUDISC ---
Date of service: 01/16/24 Time of Service: 09:14 Discharge Plan Disposition Patient Disposition: Home Condition: Good Discharge Details Attending Provider: Sita De Los Santos Primary Care Provider: Marina Yi Home Meds and New Rx's Prescriptions: New tramadol 50 mg tablet 50 mg PO Q4H PRNQty: 14 0RF ondansetron 4 mg tablet,disintegrating 4 mg PO Q8H PRN4 Days Qty: 10 0RF Continued ascorbic acid (vitamin C) 500 mg capsule 500 mg PO DAILY multivitamin [Multi-Day] 1 EACH tablet 1 tab PO DAILY ibuprofen 600 MG tablet 600 mg PO Q6H PRN PRN (Reason: Pain) Qty: 25 0RF enalapril maleate 5 mg Tablet 5 mg PO DAILY cyanocobalamin (vitamin B-12) [Vitamin B-12] 1,000 mcg Tablet 1,000 mcg PO DAILY calcium carbonate [Calcium 500] 500 mg calcium (1,250 mg) Tablet 500 mg PO DAILY metformin 1,000 mg Tablet 1,000 mg PO BID lovastatin 20 mg Tablet 20 mg PO DAILY diphenhydramine HCl 25 mg Tablet 25 mg PO DAILY PRN magnesium oxide 400 mg (241.3 mg magnesium) tablet 400 mg PO HS PRN Patient Comments: TAKE 1 TABLET BY MOUTH AT BEDTIME loratadine 10 mg tablet 10 mg PO DAILY Patient Comments: TAKE 1 TABLET BY MOUTH ONCE DAILY Held aspirin [Aspir-81] 81 MG tablet,delayed release (DR/EC) 81 mg PO DAILY Hold Instructions: Resume on 01/23/24. Hold for 1 week's time vitamin E 400 unit Capsule 400 unit PO DAILY Hold Instructions: Resume on 01/23/24. Hold for 1 week's time cholecalciferol (vitamin D3) [Vitamin D3] 1,000 unit Capsule 1,000 unit PO DAILY Hold Instructions: Resume on 01/23/24. Hold for 1 week's time Discharge Instructions Additional Instructions: Care after Gallbladder Surgery -Pain control: ?For the first 72 hours after surgery, take your pain meds continuously, and not just when you have pain.?? Alternate Tylenol 1000mg by mouth every 8 hours, and Ibuprofen 600mg every 6 hours.? Make sure you take ibuprofen with food and not on an empty stomach.? ??Use the tramadol for breakthrough pain- pain that is greater than a 7. ?- Use ICE! Ice really helps to keep the swelling down, and swelling causes pain. ??Twenty minutes on, and then off, continuously for the first 72hours.? After the first 72hrs, you can just use the Tylenol, ibuprofen or Celebrex, and ice, when you have pain.?? If you are taking narcotic pain medication, follow the instructions on the label and do not drive. Pain medications can make you very constipated. Make sure you are moving your bowels daily. If not, take Miralax. - Anesthesia makes you very constipated.? Take a dose of Miralax the morning after surgery. ? Use an ice bag for the first 72 hours. This helps to decrease swelling, which causes pain. It is normal to be more sore/painful and swollen towards the end of the day and first thing in the morning. ? Gallbladder surgery can make you very nauseated; use Zofran for nausea, for the first 24 hours. The nausea generally stops after 24 hours. ? Use Miralax or prune juice to prevent constipation (this is a particular side effect of pain medication and anesthesia). Do not allow yourself to become constipated. ? Avoid fatty or greasy foods; introduce these slowly, with care, after about 1 month. High-fat foods include: ? Foods that are fried, like [place] fries and potato chips ? High-fat meats, such as banda, bologna, sausage, ground beef, and ribs, pork products ? High-fat dairy products, such as cheese, ice cream, cream, whole milk, and sour cream ? Pizza ? Foods made with lard or butter ? Creamy soups or sauces ? Meat gravies ? Chocolate ? Oils, such as palm and coconut oil ? Skin of chicken or turkey ? Nuts and nut butters ? Avocadoes ? Start out eating very small, bland amounts of food. Do not take pain pills on an empty stomach. - You will notice purple discoloration around the incisions.? This is the ?skin glue?.? This will wear off on its own.? It is OK to shower after 24hrs.? You do not need to cover the incisions. -You should walk frequently, gradually, increasing the distance. You may climb stairs, just go slowly. ? Do not go swimming or sit in a hot tub for two weeks. ? There are no stitches to remove. ? Do not drive your car x72hrs and then only if you have no pain and can move freely. Do not drive if you are taking pain narcotic pain medications. ? You may resume sexual activity whenever pain and soreness subside, usually in 2 weeks. ? Do no lift anything over 5 lbs. for two weeks. ? You may return to work in one week, or when you feel able, provided you do not have to do any heavy lifting or prolonged standing. ? You should return to Dr. De Los Santos?s office for a post-op appointment about two weeks after surgery. A follow-up should have been scheduled for you already.? If there is not, please call the Surgical [facility] at: [phone] to schedule an appointment. My Medications for pain and nausea are: Tylenol/ibuprofen ?and ultram- for severe pain ?and Zofran-nausea When to Call the Office: ? If the incision becomes red or swollen, or there is more than a little drainage from it. ? If you develop a temperature higher than 100.5 F. ? If your eyes turn yellow ? Vomiting and can?t keep fluids down Activity:: see above Remove Dressings/Wound Care:: 24 hours Shower/Bathe:: 24 hours Diet:: Carb Counting Discharge Orders Discharge Orders: Discharge Order (Routine); Ordered 01/16/24 Ordered By: Sita De Los Santos DS: Diagnosis Discharge Diagnosis (1) Hyperlipidemia: Status: Acute (2) Diabetes: Status: Acute (3) Gallstones: Status: Acute (4) Diverticula of colon: Status: Acute (5) S/P laparoscopic cholecystectomy:
--- NOTE | 2024-01-16 09:29 | W.PM.OP ---
Date of service: 01/16/24 Time of Service: 09:29 Operative Note Operative Note DATE OF PROCEDURE: 01/16/24 PRE-OP DIAGNOSIS: Symptomatic gallstones POST-OP DIAGNOSIS: same PROCEDURE: Lap mehdi SURGEON: Sita Soto PUMPER HELPER: Leilani Romero ANESTHESIA TYPE: Local By Surgeon and General:No Airway Refer to Anesthesia Record ESTIMATED BLOOD LOSS: 5 PATHOLOGY: other COMPLICATIONS: None Patient was transported to: PACU Patient's condition: stable Procedure Description: The pt is seen at the request of there PCP regarding chronic cholecystitis, cholelithiasis. The pt has failed outpt conservative medical measures and is here today for laparoscopic cholecystectomy. Informed consent was obtained, explaining risks and benefits of the procedure including but not limited to bleeding, infection, pneumonia, blood clots, possible damage to bowel, bladder, blood vessels, bile ducts, possible open procedure, complications of general anesthesia and other unforetold complications. PROCEDURE: The patient agrees and is brought to the operative room suite and placed in supine position. Pt receives IV ICG preOp to aid w/ bile duct visualization.? Anesthesia was administered per the Department of Anesthesia. The patient did receive IV antibiotics. NG tube and Dsouza catheter are placed. The patient was prepped and draped in the usual sterile fashion using DuraPrep scrub solution. Pause for the cause was done. 20 mL of 1% buffered lidocaine was used for local anesthetization. A stab incision was made in the umbilicus and the Verres inserted. Drop test was positive and insufflation was begun. When 15 mm of pressure was noted on the monitor, the Veress was removed and #10 port inserted. The camera was inserted through the port and shows no damage to underlying structures. A 5 mm port was then placed in the epigaposition under direct visualization following creation of local field blocks as well as two 5 mm ports in the right upper quadrant. The camera was moved to one of the secondary ports so we could view the umbilical trocar site, and there is are no hernias or adhesions. The gallbladder fundus was grasped and retracted towards the right shoulder. Infundibulum was grasped and retracted laterally. The hepat-duodenal ligament is entered. The cystic duct and artery are dissected out and the most inferior portion of the gallbladder plate is removed from the liver and the critical view of safety was obtained after clearing away all fatty material. Endo Clips were placed across the duct and artery and these structures are divided. The remainder of the gallbladder was excised from the liver bed. The gallbladder was placed in a bag and brought out. Examination of the gallbladder shows indeed the cystic duct and artery to have been divided. The remainder of the abdomen was copiously irrigated with a liter of saline. All saline is removed. There is no bleeding or bile leakage from the liver bed or the clips sites. All ports and instruments are removed. SPonge and needle counts are correct. Pneumoperitoneum is evacuated and the port sites are monitored to make sure there is no bleeding at the time of desufflation. ?The 10 mm port site at the umbilicus is closed with 0 Vicryl in an interrupted fashion. ?Port sites are irrigated and the skin is closed with 4-0 Monocryl in a running subcuticular fashion. Skin glue sterile dressings are applied. The patient tolerated the procedure well without complications, transferred to the recovery room in stable condition. SITA SOTO, DO
--- NOTE | 2024-01-16 09:49 | PDOC.DSDIS_ITS ---
Date of service: 01/16/24 Time of Service: 16:51 Discharge Plan Disposition Patient Disposition: Home Condition: Good Discharge Details Attending Provider: Sita De Los Santos Primary Care Provider: Marina Yi Home Meds and New Rx's Prescriptions: New ondansetron 4 mg tablet,disintegrating 4 mg PO Q8H PRN4 Days Qty: 10 0RF Continued ascorbic acid (vitamin C) 500 mg capsule 500 mg PO DAILY multivitamin [Multi-Day] 1 EACH tablet 1 tab PO DAILY ibuprofen 600 MG tablet 600 mg PO Q6H PRN PRN (Reason: Pain) Qty: 25 0RF enalapril maleate 5 mg Tablet 5 mg PO DAILY cyanocobalamin (vitamin B-12) [Vitamin B-12] 1,000 mcg Tablet 1,000 mcg PO DAILY calcium carbonate [Calcium 500] 500 mg calcium (1,250 mg) Tablet 500 mg PO DAILY metformin 1,000 mg Tablet 1,000 mg PO BID lovastatin 20 mg Tablet 20 mg PO DAILY diphenhydramine HCl 25 mg Tablet 25 mg PO DAILY PRN magnesium oxide 400 mg (241.3 mg magnesium) tablet 400 mg PO HS PRN Patient Comments: TAKE 1 TABLET BY MOUTH AT BEDTIME loratadine 10 mg tablet 10 mg PO DAILY Patient Comments: TAKE 1 TABLET BY MOUTH ONCE DAILY Held aspirin [Aspir-81] 81 MG tablet,delayed release (DR/EC) 81 mg PO DAILY Hold Instructions: Resume on 01/23/24. Hold for 1 week's time vitamin E 400 unit Capsule 400 unit PO DAILY Hold Instructions: Resume on 01/23/24. Hold for 1 week's time cholecalciferol (vitamin D3) [Vitamin D3] 1,000 unit Capsule 1,000 unit PO DAILY Hold Instructions: Resume on 01/23/24. Hold for 1 week's time No Action tramadol 50 mg tablet 50 mg PO Q6H PRN PRN (Reason: pain) Qty: 14 0RF ondansetron 4 mg tablet,disintegrating 4 mg PO Q8H Qty: 7 0RF ondansetron HCl 4 mg tablet 4 mg PO Q6H PRN (Reason: nausea and vomiting) Qty: 10 0RF tramadol 50 mg tablet 50 mg PO Q4H PRN PRN (Reason: pain) Qty: 10 0RF Discharge Instructions Additional Instructions: Care after Gallbladder Surgery -Pain control: ?For the first 72 hours after surgery, take your pain meds continuously, and not just when you have pain.?? Alternate Tylenol 1000mg by mouth every 8 hours, and Ibuprofen 600mg every 6 hours.? Make sure you take ibuprofen with food and not on an empty stomach.? ??Use the tramadol for breakthrough pain- pain that is greater than a 7. ?- Use ICE! Ice really helps to keep the swelling down, and swelling causes pain. ??Twenty minutes on, and then off, continuously for the first 72hours.? After the first 72hrs, you can just use the Tylenol, ibuprofen or Celebrex, and ice, when you have pain.?? If you are taking narcotic pain medication, follow the instructions on the label and do not drive. Pain medications can make you very constipated. Make sure you are moving your bowels daily. If not, take Miralax. - Anesthesia makes you very constipated.? Take a dose of Miralax the morning after surgery. ? Use an ice bag for the first 72 hours. This helps to decrease swelling, which causes pain. It is normal to be more sore/painful and swollen towards the end of the day and first thing in the morning. ? Gallbladder surgery can make you very nauseated; use Zofran for nausea, for the first 24 hours. The nausea generally stops after 24 hours. ? Use Miralax or prune juice to prevent constipation (this is a particular side effect of pain medication and anesthesia). Do not allow yourself to become constipated. ? Avoid fatty or greasy foods; introduce these slowly, with care, after about 1 month. High-fat foods include: ? Foods that are fried, like Japanese fries and potato chips ? High-fat meats, such as banda, bologna, sausage, ground beef, and ribs, pork products ? High-fat dairy products, such as cheese, ice cream, cream, whole milk, and sour cream ? Pizza ? Foods made with lard or butter ? Creamy soups or sauces ? Meat gravies ? Chocolate ? Oils, such as palm and coconut oil ? Skin of chicken or turkey ? Nuts and nut butters ? Avocadoes ? Start out eating very small, bland amounts of food. Do not take pain pills on an empty stomach. - You will notice purple discoloration around the incisions.? This is the ?skin glue?.? This will wear off on its own.? It is OK to shower after 24hrs.? You do not need to cover the incisions. -You should walk frequently, gradually, increasing the distance. You may climb stairs, just go slowly. ? Do not go swimming or sit in a hot tub for two weeks. ? There are no stitches to remove. ? Do not drive your car x72hrs and then only if you have no pain and can move freely. Do not drive if you are taking pain narcotic pain medications. ? You may resume sexual activity whenever pain and soreness subside, usually in 2 weeks. ? Do no lift anything over 5 lbs. for two weeks. ? You may return to work in one week, or when you feel able, provided you do not have to do any heavy lifting or prolonged standing. ? You should return to Dr. De Los Santos?s office for a post-op appointment about two weeks after surgery. A follow-up should have been scheduled for you already.? If there is not, please call the Surgical [facility] at: [phone] to schedule an appointment. My Medications for pain and nausea are: Tylenol/ibuprofen ?and ultram- for severe pain ?and Zofran-nausea When to Call the Office: ? If the incision becomes red or swollen, or there is more than a little drainage from it. ? If you develop a temperature higher than 100.5 F. ? If your eyes turn yellow ? Vomiting and can?t keep fluids down Stand Alone Forms: Anesthesia Discharge Inst[facility] Kayli Muñoz ([facility]) Referrals: Sita De Los Santos DO [OSTEOPATHIC DOCTOR] - 02/02/24 11:00 am Activity:: see above Remove Dressings/Wound Care:: 24 hours Shower/Bathe:: 24 hours Diet:: Carb Counting Discharge Orders Discharge Orders: Discharge Order (Routine); Ordered 01/16/24 Ordered By: Sita De Los Santos Discharge Data Discharge Date/Time-TO BE ENTERED AT DEPARTURE: 01/16/24 12:55 DS: Diagnosis Discharge Diagnosis (1) Hyperlipidemia: Status: Acute (2) Diabetes: Status: Acute (3) Gallstones: Status: Acute Asessment and Plan: The patient is doing well post-op from their [] surgery.? They are having no na usea or vomiting. They are tolerating liquids and a snack. The pt is not having any chest pain or SOB.? Their pain is adequately controlled. They have been able to urinate.? ?HEENT:? no eye pain/drainage/redness/swelling. Mild sore throat ?Cardio- NSR, no chest pain, BP stable- see VS record ?Pulm: no sob or productive cough. No hemoptysis ?Incision- dressing is c/d/i w/ no excessive bleeding or drainage ?I discussed with the patient the findings at the time of surgery and the patient?s progress. ?We reviewed expectations at home; what the patient could expect for recovery time, and in the post-operative period.? We discussed the importance of walking to avoid blood clots and pneumonia.? We discussed and reviewed the patient's post-operative wound care and dressing needs.?? We reviewed their step-king pain management plan, Rx called to the pharmacy of their choice.? We reviewed activity and limitations-see discharge instructions. We reviewed warning signs, and when to seek medical attention- see d/c instructions.?? Patient was given a postoperative follow-up appointment. Patient verbalized understanding of their postoperative instructions, how do to take care of themselves and their incision, and the pain management plan. Please see discharge instructions.? (4) Diverticula of colon: Status: Acute (5) S/P laparoscopic cholecystectomy:
[2024-01-16] MEDS: traMADol 50 MG TAB PO (10:31)
--- NOTE | 2024-01-16 12:50 | W.ANESPOSTOP ---
Postoperative Evaluation Date, Time and Location Date Performed: 01/16/24 Time Performed: 12:09 Patient Location: Day Surgery Unit Vital Signs Most Recent Imported Vital Signs: Most Recent Vital Signs Temp Pulse Resp BP Pulse Ox 36.4 C L 77 17 143/73 H 97 01/16/24 11:30 01/16/24 11:30 01/16/24 11:30 01/16/24 11:30 01/16/24 11:30 Pain Score Most Recent Pain Score: Most Recent Pain Score Pain Level 8 01/16/24 11:30 Assessment Mental Status: Arousable with meaningful communication Airway and Respiratory Function: Patent airway with normal (patient baseline) respiratory exam Cardiovascular Function: Hemodynamically Stable Hydration Status: Adequately Hydrated Nausea & Vomiting: No Nausea or Vomiting Pain: Pain is tolerable per patient Peripheral Nerve Block: Patient did not receive a nerve block Teaching Patient Teaching: Advised to seek followup for the following concerns (See explanation) Concerns: Poorly Controlled Diabetes
== END 2024-01-16 12:55 | disposition home or self-care (01) ==
PROVIDERS: PCP Nurse Practitioner Family; Visit Provider Surgery
PROC: 0FT44ZZ Resection of Gallbladder, Percutaneous Endoscopic Approach (ICD-10-PCS; CPT 47562; principal; 2024-01-16 07:30)
DX: E11.9 Type 2 diabetes mellitus without complications; K57.30 Diverticulosis of large intestine without perforation or abscess without bleeding; R01.1 Cardiac murmur, unspecified; K80.10 Calculus of gallbladder with chronic cholecystitis without obstruction
CPT/HCPCS: 47562; 88304; J0690; J1100; J1805; J1836; J1885; J1920; J2001; J2250; J2371; J2405; J2704; J3010

== ENCOUNTER 2024-01-22 12:42 | Outpatient (REF) | payer MEDICARE, SELFPAY ==
[2024-01-22 16:11] LABS: Hemoglobin A1C 8.3 % (<5.7)
== END 2024-01-22 12:43 | disposition home or self-care (01) ==
LOC: NCHCN 12:42
PROVIDERS: PCP Nurse Practitioner Family; Visit Provider Nurse Practitioner Family
DX: E11.9 Type 2 diabetes mellitus without complications (principal)
CPT/HCPCS: 83036

== ENCOUNTER → 2024-02-02 10:47 | Outpatient (BNVA) | payer MEDICARE, SELFPAY | PROVIDERS: PCP Nurse Practitioner Family; Referring Provider Nurse Practitioner Family; Visit Provider Physical Therapy Assistant | DX: Z48.815 Encounter for surgical aftercare following surgery on the digestive system (principal) ==

== ENCOUNTER 2024-12-09 16:11 | Outpatient (REF) | payer MEDICARE, SELFPAY ==
[2024-12-09 15:55] LABS: ALT 23 U/L (14-59); AST 15 U/L (15-37); Albumin 3.9 g/dL (3.4-5.0); Alkaline Phosphatase 91 U/L (46-116); Anion Gap 8.5 mmol/L (3-11); BUN 19 mg/dL (7-18); Bilirubin, Total 0.7 mg/dL (0.2-1.0); CO2 25.5 mmol/L (21.0-32.0); CREATININE 0.9 mg/dL (0.55-1.02); Calcium 9.4 mg/dL (8.5-10.1); Calculated LDL 84 mg/dL (<100); Chloride 106 mmol/L (98-107); Cholesterol 172 mg/dL (<200); Estimated GFR 66.67 (mL/min/1.73m2); Glucose 159 mg/dL (74-106); HDL Cholesterol 77 mg/dL (>or=50); Magnesium 1.9 mg/dL (1.8-2.4); Potassium 4.7 mmol/L (3.5-5.1); Sodium 140 mmol/L (136-145); Total Protein 6.8 g/dL (6.4-8.2); Triglyceride 56 mg/dL (<150); Vitamin B12 1078 pg/mL (193-986); Vitamin D 25 Total 42 ng/mL (30-100)
== END 2024-12-09 16:12 | disposition home or self-care (01) ==
LOC: NCHCN 16:11
PROVIDERS: PCP Nurse Practitioner Family; Visit Provider Nurse Practitioner Family
DX: I10 Essential (primary) hypertension (principal); M85.89 Other specified disorders of bone density and structure, multiple sites; E11.9 Type 2 diabetes mellitus without complications
CPT/HCPCS: 80053; 80061; 82306; 82607; 83735

== ENCOUNTER 2025-01-15 00:35 | Outpatient (CLI) | payer MEDICARE, SELFPAY ==
--- NOTE | 2025-01-15 | DI.MAMMO_ITS ---
Exam(s) MAMMO SCREENING EXAM: MAMMO SCREENING CLINICAL HISTORY: Screening, Z12.31 TECHNIQUE: Mammograms were interpreted according to the usual protocol including computer analysis w [place] CAD system, tomosynthesis and C-view imaging. COMPARISON: 2015 through 2023 FINDINGS: The breasts are composed of scattered fibroglandular densities, Breast Density category B. No suspicious masses or suspicious microcalcifications are seen. No skin thickening or abnormal axillary lymph nodes are seen. There has been no significant change from prior exams. IMPRESSION: BI-RADS Category 1, Negative mammogram Yearly screening mammography is recommended. Breast Density - Category B, scattered fibroglandular densities. Breast density Category C or D implies that the patient has dense breast tissue. Dense breast tissue can make it harder to find cancer on a mammogram. Dense breast tissue is also associated with an incr eased risk of breast cancer. This information about the result of the mammogram report was provided to the patient to raise their awareness. Use this report when you speak with the patient about their risks for breast cancer, which includes their family history. At that time, you may recommend additional screening tests (Ultrasoun d or MRI) as these tests may add significant information. A negative radiographic report should not delay biopsy if a dominant or clinically suspicious mass is present. Up to ten percent of cancers are not identified on mammography. A negative report may reinforce clinical impression. Adenosis and dense breasts may obscure an underlying neoplasm. False positive reports average 6 to 10%. Patient will receive a letter notifying them of these results.
== END 2025-01-15 00:55 ==
PROVIDERS: PCP Nurse Practitioner Family; Visit Provider Nurse Practitioner Family
DX: Z12.31 Encounter for screening mammogram for malignant neoplasm of breast (principal); R92.323 Mammographic fibroglandular density, bilateral breasts
CPT/HCPCS: 77063; 77067

== ENCOUNTER 2025-03-09 19:46 | Emergency (ER) | payer MEDICARE, SELFPAY ==
--- NOTE | 2025-03-09 19:45 | RT.EKG_ITS ---
APPROVED REPORT Exam: Resting ECG Reason for Exam: SOB Patient Location: E HR:82 bpm ECG Measurements Heart Rate 82 AXIS OR 150 P 71 QRSd 80 QRS -13 QT 375 T 53 QTc 438 Conclusion Sinus rhythm 82 normal axis no stmei
[2025-03-09 19:49] VITALS: BP 191/73; PULSE 86; RESP 22; TEMP 37.1; O2SAT 97
[2025-03-09 20:00] VITALS: RESP 19
[2025-03-09 20:03] VITALS: BP 191/73; PULSE 86; RESP 19; TEMP 37.1; O2SAT 97
--- NOTE | 2025-03-09 20:03 | DI.RAD_ITS ---
Exam(s) XR CHEST 2V PA LATERAL EXAM: XR CHEST 2V PA LATERAL CLINICAL HISTORY: sob TECHNIQUE: 2D digital imaging was performed. Two views. COMPARISON: CT CT CHEST WO from 12/21/2023 FINDINGS: HEART: Normal size. Aorta: Not dilated. PULMONARY VASCULATURE: Normal. MEDIASTINUM: Unremarkable. LUNGS: Mildly increased densities at the left diaphragm may represent mild atelectasis versus small infiltrate. The right lung is clear. No effusions. PLEURAL SPACE: No pleural effusion or pneumothorax. BONE:Unremarkable for age. SOFT TISSUES: Unremarkable. IMPRESSION: Question of left basilar infiltrate versus atelectasis. The preliminary [facility] report was reviewed. DATA REPOSITORY: RADIATION DOSE DELIVERED:
[2025-03-09 20:14] LABS: Abs Immature Grans 0.03 10^3/uL (0.0-0.06); HCT 37.1 % (36.0-46.0); HGB 12.6 g/dL (11.2-15.7); Immature Grans % 0.4 %; MCH 30.2 pg (27.0-33.0); MCHC 34.0 % (32.0-36.0); MCV 89 fL (80-95); MPV 11.2 fL (8.0-11.0); Platelet Count 280 10^3/uL (130-400); RBC 4.17 10^6/uL (3.93-5.22); RDW 12.6 % (11.7-14.6); RDW-SD 41.2 fL; WBC 8.18 10^3/uL (4.4-10.8)
[2025-03-09 20:27] LABS: INR 1.0 (0.9-1.1); Prothrombin Time 9.9 sec (9.1-11.1)
[2025-03-09 20:32] LABS: ALT 26 U/L (14-59); AST 35 U/L (15-37); Albumin 3.5 g/dL (3.4-5.0); Alkaline Phosphatase 111 U/L (46-116); Anion Gap 7.6 mmol/L (3-11); BUN 11 mg/dL (7-18); Bilirubin, Total 0.6 mg/dL (0.2-1.0); CO2 28.4 mmol/L (21.0-32.0); Calcium 8.8 mg/dL (8.5-10.1); Chloride 103 mmol/L (98-107); Estimated GFR 76.79 (mL/min/1.73m2); Glucose 166 mg/dL (74-106); Magnesium 1.8 mg/dL (1.8-2.4); Potassium 5.1 mmol/L (3.5-5.1); Sodium 139 mmol/L (136-145); Total Protein 7.3 g/dL (6.4-8.2)
[2025-03-09 20:40] LABS: D-Dimer 824 ng/mlFEU (<500)
[2025-03-09 20:43] LABS: NT-proBNP 76 pg/mL (<300); Troponin I 5 ng/L (<or=51)
--- NOTE | 2025-03-09 20:45 | DI.CT_ITS ---
Exam(s) CT CHEST PE CTA EXAM: CT CHEST PE CTA CLINICAL HISTORY: sob. TECHNIQUE: Imaging Protocol: Axial CT angiography was performed with multi- slice acquisition and multi-planar reconstructions as well as axial, coronal and sagittal MIP reconstructions. Computer aided detection (CAD) was utilized. CONTRAST MATERIAL: Intravenous: Omnipaque 350 Contrast volume:70 mL COMPARISON: CT CT CHEST W from 12/10/[address] CHEST WO from 12/21/2023 CR,XR XR CHEST 2V PA LATERAL from 03/09/2025 FINDINGS: Pulmonary Arteries: No evidence of filling defect to suggest pulmonary emboli. Mediastinum and [place]: No dominant adenopathy or fluid collection. Pulmonary parenchyma: Somewhat limited evaluation due to expiratory changes. Mild dependent changes. No consolidation or dominant measurable mass. Stable 5 millimeters nodules at the left lung base. For multiple solid noncalcified nodules smaller than 6 mm in diameter, no routine follow-up is recommended (grade 2B; weak recommendation, moderate-quality evidence). (Gen et al., 2017) Pleura: No effusion or pneumothorax. Heart: The heart is not dilated. No coronary artery calcifications are seen. Aorta: Thoracic aorta non-dilated. No dissection. Upper abdomen: No acute findings. Bones: flowing osteophytes consistent with DISH. Tubes, Catheters, and Lines: None Soft tissues: Unremarkable. IMPRESSION: No evidence of pulmonary embolism or other acute abnormality. The preliminary [facility] report was reviewed. RADIATION DOSE DELIVERED: 99.17mGy.cm Total DLP DATA REPOSITORY: All CT scans at this facility are submitted to the National Radiology Data Registry (NRDR) Dose Index Registry (DIR) with the [employer] (A[employer]). RADIATION OPTIMIZATION: All CT scans at this facility use at least one of these dose optimization techniques: automated exposure control; mA and/or kV adjustment per patient size (includes targeted exams where dose is matched to clinical indication); or iterative reconstruction.
[2025-03-09] MEDS: Omnipaque 350 MG/ML 100 ML BTL IJ (21:22)
[2025-03-09] MEDS: Normal Saline Flush 10 ML SYR IVP (21:23)
[2025-03-09] MEDS: Normal Saline - Diluent 50 ML VIAL IJ (21:24)
[2025-03-09 21:28] LABS: Troponin I 6 ng/L (<or=51)
--- NOTE | 2025-03-09 21:30 | W.ED.GENAD ---
Discharge Plan Disposition Patient Disposition: Home Condition: Stable Discharge Details Clinical Impression: Back pain, Dyspnea Primary Care Provider: Marina Yi ED Provider: Avtar Izquierdo Home Meds and New Rx's Prescriptions: New methocarbamol 500 mg tablet 500 mg PO TID Qty: 20 0RF lidocaine [Lidoderm] 5 % adhesive patch,medicated 1 patch topical DAILY Qty: 15 0RF Rx Instructions: leave on most painful area for up to 12 hrs No Action ascorbic acid (vitamin C) 500 mg capsule 500 mg PO DAILY multivit with min-folic acid 0.4 mg tablet 1 tab PO DAILY glipizide 2.5 mg tablet extended release 24hr 2.5 mg PO DAILY montelukast 10 mg tablet 10 mg PO DAILY cyanocobalamin (vitamin B-12) [Vitamin B-12] 1,000 mcg Tablet 1,000 mcg PO DAILY calcium carbonate [Calcium 500] 500 mg calcium (1,250 mg) Tablet 500 mg PO DAILY metformin 1,000 mg Tablet 1,000 mg PO BID lovastatin 20 mg Tablet 20 mg PO DAILY magnesium oxide 400 mg (241.3 mg magnesium) tablet 400 mg PO HS PRN Patient Comments: TAKE 1 TABLET BY MOUTH AT BEDTIME loratadine 10 mg tablet 10 mg PO DAILY Patient Comments: TAKE 1 TABLET BY MOUTH ONCE DAILY enalapril maleate 5 mg tablet 5 mg PO DAILY Patient Comments: TAKE 1 TABLET BY MOUTH ONCE DAILY Discharge Instructions Additional Instructions: Your lab work, EKG, chest x-ray and CT scan are all very reassuring. There does not appear to be a cardiac or pulmonary cause of your symptoms. You do have a very localized spot of muscle spasm in the area of your pain. I suspect that this is what is causing your symptoms. Will treat for this. Recommend close follow-up with PCP, return to the emergency department if your symptoms are worsening. HPI General Date/Time Provider Initiated Documentation: 03/09/25 20:03. Limitations to Documentation: no limitations. Information obtained by: patient. HPI Narrative: 74-year-old female with past medical history of diabetes, hyperlipidemia presents for evaluation of right sided back pain that is worse with deep breaths. She reports that the pain is localized to around the shoulder blade. It is very uncomfortable to breathe. This is not associated with shortness of breath or chest pain. She has not had a recent cough or sick symptoms. No fever. No known risk factors for DVT or PE. Reports that symptoms have been ongoing for about a week and progressively worsening. She does note that during this time she has had some right leg swelling but that seems to have gotten better Related Data Home Medications ?Medication ?Instructions ?Recorded ?Confirmed calcium carbonate (Calcium 500) 500 mg PO DAILY 01/24/19 03/09/25 cyanocobalamin (vitamin B-12) 1,000 mcg PO DAILY 01/24/19 03/09/25 1,000 mcg tablet (Vitamin B-12) lovastatin 20 mg tablet 20 mg PO DAILY 01/24/19 03/09/25 metformin 1,000 mg tablet 1,000 mg PO BID 01/24/19 03/09/25 ascorbic acid (vitamin C) 500 mg 500 mg PO DAILY 07/05/21 03/09/25 capsule loratadine 10 mg tablet 10 mg PO DAILY 01/16/24 03/09/25 magnesium oxide 400 mg (241.3 mg 400 mg PO HS PRN 01/16/24 03/09/25 magnesium) tablet glipizide 2.5 mg tablet, extended 2.5 mg PO DAILY 12/10/24 03/09/25 release 24 hr montelukast 10 mg tablet 10 mg PO DAILY 12/10/24 03/09/25 multivitamin with minerals-folic 1 tab PO DAILY 12/10/24 03/09/25 acid 0.4 mg tablet enalapril maleate 5 mg tablet 5 mg PO DAILY 03/09/25 03/09/25 lidocaine 5 % topical patch 1 patch topical DAILY #15 ea 03/09/25 (Lidoderm) methocarbamol 500 mg tablet 500 mg PO TID #20 tabs 03/09/25 Previous Rx's ?Medication ?Instructions ?Recorded lidocaine 5 % topical patch 1 patch topical DAILY #15 ea 03/09/25 (Lidoderm) methocarbamol 500 mg tablet 500 mg PO TID #20 tabs 03/09/25 Allergies Allergy/AdvReac Type Severity Reaction Status Date / Time empagliflozin (From Allergy Severe severe Verified 03/09/25 19:55 Jardiance) blood in urine meperidine HCl (From Demerol) Allergy Severe Pt states Verified 03/09/25 19:55 caused hospitalization lisinopril AdvReac Intermediate cough Verified 03/09/25 19:55 General Stated Complaint: SOB JOE: 3 Exam Narrative Exam Narrative: Review of Systems: All systems reviewed & are unremarkable except as noted in HPI and below Well-developed, no acute distress Afebrile NCAT RRR Unlabored respiratory effort, clear lung sounds, patient is not hypoxic or tachypneic but she does seem dyspneic with talking Nondistended abdomen Extremities w/o edema No rashes or lesions. no focal neurologic deficits Appropriate mood and affect Course Vital Signs Vital signs: Vital Signs Temperature 37.1 C 03/09/25 19:49 Pulse 86 03/09/25 19:49 Respiratory Rate 22 03/09/25 19:49 Blood Pressure 191/73 H 03/09/25 19:49 Pulse Oximetry 97 03/09/25 19:49 Temperature 37.1 C 03/09/25 20:03 Temperature Source Tympanic 03/09/25 20:03 Pulse 86 03/09/25 20:03 Respiratory Rate 19 03/09/25 20:03 Respiratory Effort Short of Breath 03/09/25 20:00 Blood Pressure 191/73 H 03/09/25 20:03 Blood Pressure Position Supine 03/09/25 20:03 Pulse Oximetry 97 03/09/25 20:03 Oxygen Delivery Method Room Air 03/09/25 20:03 Oxygen Flow Rate 0 03/09/25 20:03 Pain Level 8 03/09/25 20:03 Lab/Test Results Lab/Test Results: Laboratory Tests Range/Units 03/09/25 03/09/25 19:57 21:00 WBC (4.4-10.8) 10^3/uL 8.18 RBC (3.93-5.22) 10^6/uL 4.17 Hgb (11.2-15.7) g/dL 12.6 Hct (36.0-46.0) % 37.1 MCV (80-95) fL 89 MCH (27.0-33.0) pg 30.2 MCHC (32.0-36.0) % 34.0 RDW (11.7-14.6) % 12.6 Plt Count (130-400) 10^3/uL 280 MPV (8.0-11.0) fL 11.2 H Immature Gran % % 0.4 Neutrophils % % 45.6 Lymphocytes % % 40.0 Monocytes % % 9.4 Eosinophils % % 3.4 Basophils % % 1.2 Nucleated RBC % (0.0-0.3) % 0.0 Absolute Neutrophils (1.2-6.7) 10^3/uL 3.73 Absolute Lymphocytes (1.2-3.4) 10^3/uL 3.27 Absolute Monocytes (0.1-0.8) 10^3/uL 0.77 Absolute Eosinophils (0.0-0.7) 10^3/uL 0.28 Absolute Basophils (0.0-0.2) 10^3/uL 0.10 PT (9.1-11.1) sec 9.9 INR (0.9-1.1) 1.0 D-Dimer (<500) ng/mlFEU 824 H Sodium (136-145) mmol/L 139 Potassium (3.5-5.1) mmol/L 5.1 Chloride (98-107) mmol/L 103 Carbon Dioxide (21.0-32.0) mmol/L 28.4 Anion Gap (3-11) mmol/L 7.6 BUN (7-18) mg/dL 11 Creatinine (0.55-1.02) mg/dL 0.8 Est GFR (CKD-EPI 2020) (mL/min/1.73m2) 76.79 Glucose (74-106) mg/dL 166 H Calcium (8.5-10.1) mg/dL 8.8 Magnesium (1.8-2.4) mg/dL 1.8 Total Bilirubin (0.2-1.0) mg/dL 0.6 AST (15-37) U/L 35 ALT (14-59) U/L 26 Alkaline Phosphatase (46-116) U/L 111 Troponin I (<or=51) ng/L 5 6 NT-Pro-B Natriuret Pep (<300) pg/mL 76 Total Protein (6.4-8.2) g/dL 7.3 Albumin (3.4-5.0) g/dL 3.5 Medical Decision Making Emergent evaluation of painful breathing. Initial differential includes pneumonia, less likely ACS or dissection, also consider PE. EKG reviewed and independently interpreted sinus 92 normal axis no acute ischemic changes patient is hemodynamically stable, slightly hypertensive. Plan for labs restratification with D-dimer, chest x-ray. Chest x-ray reviewed and independently interpreted, I do not appreciate a focal consolidation. The lab work was reviewed, there is no leukocytosis or anemia, initial troponin is not elevated, BNP is not elevated. There is no electrolyte derangement. D-dimer is slightly elevated above her age-adjusted cut off. At this time we will send for CTA imaging to evaluate for possible pulmonary embolism CTA does not reveal an acute pulmonary embolism or other etiology of the patient's symptoms. I have her a DuoNeb which also did not make a change. On reexamination she definitely has a point spasm along the rhomboid of the right scapula which she indicates is the place of her pain. I suspect that perhaps this muscle spasm is causing the symptoms. Particularly if they have been ongoing for a week and she has not had any change on her imaging or lab work. Will start Lidoderm and Robaxin. Recommend close follow-up with PCP for reevaluation after a few days of medicine treatment. Return precautions advised. PFSH All Active Problems (Updated 03/09/25 @ 22:39 by Avtar Izquierdo MD) Dyspnea (Acute) Back pain (Acute) Disorder of the skin and subcutaneous tissue, unspecified (Acute) Diarrhea (Acute) Abdominal bloating (Acute) Diverticula of colon (Acute) Holosystolic murmur (Acute) Benign paroxysmal positional vertigo of right ear (Acute) Perforation of left tympanic membrane (Acute) Lipoma of chest wall (Acute) Mixed conductive and sensorineural hearing loss of left ear with restricted hearing of right ear (Acute) Sensorineural hearing loss (SNHL) of right ear with restricted hearing of left ear (Acute) Otitis externa (Acute) Hyperlipidemia (Acute) Diabetes (Acute) fd: 130's Tendinitis of right wrist (Chronic) Medical History (Updated 03/09/25 @ 22:39 by Avtar Izquierdo MD) Pain in joint of left shoulder Type 2 diabetes mellitus without complication Digestive system finding Family history of malignant neoplasm of digestive organ Heart murmur Cramp in lower leg associated with rest Spondylosis Disorder of breast Cholelithiasis without obstruction Disorder of lung Seasonal allergic rhinitis Essential hypertension Polyneuropathy Benign neoplasm of adrenal gland Migraine headache with aura Gallstones Seasonal allergies Gross hematuria Pulmonary nodule Adrenal adenoma 2020 incidental Breasts asymmetrical Abdominal pain Soft tissue mass Hx of solitary pulmonary nodule pt. reports couple Osteopenia Degenerative joint disease Hx of cardiac murmur per. pt. states her PCP told her this Surgical History (Updated 12/10/24 @ 14:21 by Clarissa Shields RN) History of colonoscopy S/P laparoscopic cholecystectomy History of surgery on right wrist Hx of removal of cyst Left upper arm Hx of tonsillectomy Family History (Updated 12/10/24 @ 14:33 by Clarissa Shields RN) Paternal Grandmother Myocardial infarction Paternal Grandfather Suicide Father Myocardial infarction Glaucoma Alcohol use disorder Mother Emphysematous bleb Diabetes Sister Fibromyalgia Sister Manic-depression Sister Manic-depression Brother , age 5 Muscular dystrophy Brother , age 28 Myocardial infarction Brother Hyperlipidemia Maternal Grandmother Cerebral hemorrhage Maternal Grandfather Colon cancer Social History Smoking/Tobacco Use Status: Never Smoking risk assessment performed?: Yes Alcohol Intake: current Alcohol Intake frequency: holidays/special occasions only Drug use: Never Substance use type: does not use Housing: house Current gender identity: female Do you feel safe at home: Yes Do you feel safe in your relationship?: Yes Additional Social history: [employer]
--- NOTE | 2025-03-09 21:31 | DI.VRAD_ITS ---
PROCEDURE INFORMATION: Exam: XR Chest Exam date and time: 03/09/2025 8:20 PM Age: 74 years old Clinical indication: Shortness of breath; SOB TECHNIQUE: Imaging protocol: Radiologic exam of the chest. Views: 2 views. COMPARISON: CT CHEST WO 12/21/2023 8:03 AM FINDINGS: Lungs: Mild atelectasis left lower lobe lung. Early infiltrate can not be excluded. Pleural spaces: There is no evidence of pneumothorax. There are no pleural effusions present. Heart/Mediastinum: The cardiac structures are normal. Diaphragm: There is mild elevation the right hemidiaphragm. Bones/joints: The thoracic spine demonstrates moderate degenerative changes at multiple levels. The skeletal structures and soft tissues show no evidence of fracture or other acute processes. Soft tissues: The soft tissues of the extrathoracic region are unremarkable. IMPRESSION: Mild atelectasis left lower lobe lung. Early infiltrate can not be excluded. Dictated and Authenticated by: William Valdez MD. Orderin Felecia Sadler MD
--- NOTE | 2025-03-09 21:47 | DI.VRAD_ITS ---
PROCEDURE INFORMATION: Exam: CTA Chest With Contrast Exam date and time: 03/09/2025 9:28 PM Age: 74 years old Clinical indication: Shortness of breath; SOB TECHNIQUE: Imaging protocol: Computed tomographic angiography of the chest with contrast. Exam focused on the arteries. 3D rendering (Not supervised by radiologist): MIP and/or 3D reconstructed images were created by the technologist. Radiation optimization: All CT scans at this facility use at least one of these dose optimization techniques: automated exposure control; mA and/or kV adjustment per patient size (includes targeted exams where dose is matched to clinical indication); or iterative reconstruction. Contrast material: OMNIPAQUE 350; Contrast volume: 70 ml; Contrast route: INTRAVENOUS (IV); COMPARISON: CT CHEST WO 12/21/2023 8:03 AM FINDINGS: Pulmonary arteries: The pulmonary arteries are normal in caliber. No evidence of acute pulmonary embolism. Aorta: The aorta is normal without evidence of aneurysmal dilatation, dissection or occlusive disease. Lungs: There is no evidence of focal pulmonary consolidation. No evidence of pulmonary parenchymal inflammatory changes. There is no evidence of pulmonary masses. There is heterogeneous attenuation of the pulmonary parenchyma, consistent with air trapping from underlying small airways disease. There is minimal bibasilar atelectasis. Left lower lobe pulmonary nodule measuring 5.8 mm was present on the prior study 12/21/2023 and is unchanged. Pleural spaces: There is no evidence of pneumothorax. There are no pleural effusions present. Heart: The cardiac structures are normal. The right ventricular to left ventricular ratio is normal measuring approximately 0.7. No evidence of reflux of contrast into the inferior vena cava or hepatic veins to suggest right heart strain or pulmonary hypertension. There is left ventricular hypertrophy. Lymph nodes: There is no evidence of lymphadenopathy. Gallbladder and biliary ducts: There has been a cholecystectomy. Bones/joints: The spine, sternum, ribs, and pectoral girdles show no evidence of acute abnormality. The thoracic spine demonstrates moderate degenerative changes at multiple levels. There are diffuse enthesopathic changes consistent with benign diffuse idiopathic skeletal hyperostosis (DISH). Soft tissues: There are no soft tissue masses or fluid collections. The remaining upper abdominal viscera unremarkable. Other findings: The mediastinal structures are normal. For patients at low risk (minimal or absent history of smoking and of other known risk factors), no routine follow-up is indicated. For patients at high risk (history of smoking or of other known risk factors), consider optional CT Chest at 12 months. (Reference: Gen). IMPRESSION: 1. No evidence of acute pulmonary embolism. 2. There is heterogeneous attenuation of the pulmonary parenchyma, consistent with air trapping from underlying small airways disease. 3. For patients at low risk (minimal or absent history of smoking and of other known risk factors), no routine follow-up is indicated. For patients at high risk (history of smoking or of other known risk factors), consider optional CT Chest at 12 months. (Reference: Gen). REFERENCES: Gen Gonzalez, et al. Guidelines for Management of Incidental Pulmonary Nodules Detected on CT Images: From the Fleischner Society 2017. Radiology. 2017;284(1):228-243. Dictated and Authenticated by: William Valdez MD. Orderin Felecia Sadler MD
[2025-03-09] MEDS: Albuterol/Ipratropium 3 ML UPD VIAL UPD (22:05)
[2025-03-09] MEDS: Methocarbamol 500 MG TAB 1000 MG PO (22:50)
[2025-03-09] MEDS: Ketorolac 15 MG/ML VIAL 10 MG IVP (22:50)
[2025-03-09] MEDS: Lidocaine 5% Patch 1 PATCH TP (22:51)
[2025-03-09 22:57] VITALS: BP 167/73; PULSE 86; RESP 19; TEMP 37.1; O2SAT 97
== END 2025-03-09 23:00 | disposition home or self-care (01) ==
PROVIDERS: Emergency Provider Emergency Medicine; PCP Nurse Practitioner Family
DX: M54.6 Pain in thoracic spine (principal); R06.09 Other forms of dyspnea; R01.1 Cardiac murmur, unspecified; E11.9 Type 2 diabetes mellitus without complications; I10 Essential (primary) hypertension; E78.5 Hyperlipidemia, unspecified; Z79.84 Long term (current) use of oral hypoglycemic drugs
CPT/HCPCS: 36415; 71275; 80053; 93005; 94640; 96374; 99285; 71046; 83735; 83880; 84484; 85025; 85379; 85610; 93010; J1885; J3490; J7620

== ENCOUNTER 2025-04-15 04:16 | Observation (INO) | payer MEDICARE, SELFPAY ==
[2025-04-15] VITALS (33 sets, daily range): BP systolic 149–193; BP diastolic 64–91; PULSE 72–100; RESP 12–22; TEMP 35.8–36.9; O2SAT 90–99
--- NOTE | 2025-04-15 04:00 | RT.EKG_ITS ---
APPROVED REPORT Exam: Resting ECG Reason for Exam: n/v Patient Location: E HR:75 bpm ECG Measurements Heart Rate 75 AXIS WA 173 P 83 QRSd 80 QRS 34 QT 416 T 36 QTc 465 Conclusion Sinus rhythm...normal P axis, V-rate 60- 99 Low voltage, extremity and precordial leads...extremity<0.5mV, precordial<1.0mV no ST segment or T wave abnormalities to suggest occlusive NE
--- NOTE | 2025-04-15 04:15 | DI.CT_ITS ---
Exam(s) CT ABDOMEN PELVIS W EXAM: CT ABDOMEN PELVIS W CLINICAL HISTORY: N/V TECHNIQUE: Imaging Protocol: Axial computed tomography images with coronal and sagittal reformatted images were created and reviewed. CONTRAST MATERIAL: Intravenous: Omnipaque 350 Contrast volume:100 mL Oral: No COMPARISON: CT CT ABDOMEN PELVIS W from 01/24/[address] ABDOMEN PELVIS WO/W from 03/05/[address] ABDOMEN WO/W from 08/04/[address] ABDOMEN PELVIS WO from 12/19/2023 FINDINGS: ABDOMEN: Lung Bases: There is a small hiatal hernia. There is a stable nodule in the left lower lobe. Liver: Normal density. No measurable mass. Portal, Superior Mesenteric, and Splenic Veins: Unremarkable. Gallbladder and Biliary Tract: Status post cholecystectomy. No significant biliary ductal dilatation is present. Pancreas: Normal density, no abnormal calcifications or inflammatory process. Spleen: Normal. Adrenals: There is stable mild nodularity of the left adrenal gland. The right adrenal gland is unremarkable. No follow-up is recommended. Kidneys: Normal size, contour and axis. No radiodense stones or obstructive uropathy. No masses seen. Abdominal Aorta: Abdominal portion non-dilated. Atherosclerotic calcification is present. Bowel: There is diverticulosis in the colon without evidence of acute diverticulitis. The stomach is incompletely distended limiting evaluation. There is no evidence of appendicitis. There is no bowel wall thickening or obstruction. Peritoneal Cavity: No ascites, collection or mesenteric inflammatory response. No free air. Lymph Nodes: Within normal limits. Bones: Within normal limits for the patient's age. Soft Tissues: Unremarkable. PELVIS: Bladder: Symmetric distention, no gross wall thickening. Reproductive Organs: There are calcified uterine fibroids present. Lymph Nodes: Within normal limits. Bones: Within normal limits for the patient's age. IMPRESSION: 1. No acute abdominal or pelvic process. 2. Colonic diverticulosis without evidence of acute diverticulitis. 3. There is no evidence of bowel obstruction. 4. The preliminary [facility] report was reviewed. RADIATION DOSE DELIVERED: 591.87mGy.cm Total DLP DATA REPOSITORY: All CT scans at this facility are submitted to the National Radiology Data Registry (NRDR) Dose Index Registry (DIR) with the [employer] (ACR). RADIATION OPTIMIZATION: All CT scans at this facility use at least one of these dose optimization techniques: automated exposure control; mA and/or kV adjustment per patient size (includes targeted exams where dose is matched to clinical indication); or iterative reconstruction.
--- NOTE | 2025-04-15 04:30 | W.ED.GENAD ---
Discharge Plan Discharge Details Chief Complaint: Nausea/Vomit/Diar Clinical Impression: Nausea & vomiting, Vertigo Primary Care Provider: Marina Yi ED Provider: Radha Ivy Home Meds and New Rx's Prescriptions: No Action ascorbic acid (vitamin C) 500 mg capsule 500 mg PO DAILY multivit with min-folic acid 0.4 mg tablet 1 tab PO DAILY glipizide 2.5 mg tablet extended release 24hr 2.5 mg PO DAILY montelukast 10 mg tablet 10 mg PO DAILY cyanocobalamin (vitamin B-12) [Vitamin B-12] 1,000 mcg Tablet 1,000 mcg PO DAILY calcium carbonate [Calcium 500] 500 mg calcium (1,250 mg) Tablet 500 mg PO DAILY metformin 1,000 mg Tablet 1,000 mg PO BID lovastatin 20 mg Tablet 20 mg PO DAILY magnesium oxide 400 mg (241.3 mg magnesium) tablet 400 mg PO HS PRN Patient Comments: TAKE 1 TABLET BY MOUTH AT BEDTIME loratadine 10 mg tablet 10 mg PO DAILY Patient Comments: TAKE 1 TABLET BY MOUTH ONCE DAILY enalapril maleate 5 mg tablet 5 mg PO DAILY Patient Comments: TAKE 1 TABLET BY MOUTH ONCE DAILY methocarbamol 500 mg tablet 500 mg PO TID Qty: 20 0RF lidocaine [Lidoderm] 5 % adhesive patch,medicated 1 patch topical DAILY Qty: 15 0RF Rx Instructions: leave on most painful area for up to 12 hrs HPI General Mode of arrival: EMS. Date/Time Provider Initiated Documentation: 04/15/25 04:17. Limitations to Documentation: no limitations. Information obtained by: patient. HPI Narrative: 75yo F with hx HTN, DM, presenting for nausea and vomiting. Uneventful day yesterday, went to bed around 9pm, woke from sleep about 1 hour prior to arrival feeling unwell, sweaty, nausated. 3 episodes of nonbloody nonbilious emesis since then. Last BM yesterday or the day before, normal. No abdominal pain. No chest pain, shortenss of breath, back pain, or headache. Otherwise in her usual state of health with no fevers, chills, rash, dysuria, hematuria, numbness, weakness, vertigo, or other concerns. Related Data Home Medications ?Medication ?Instructions ?Recorded ?Confirmed calcium carbonate (Calcium 500) 500 mg PO DAILY 01/24/19 04/15/25 cyanocobalamin (vitamin B-12) 1,000 mcg PO DAILY 01/24/19 04/15/25 1,000 mcg tablet (Vitamin B-12) lovastatin 20 mg tablet 20 mg PO DAILY 01/24/19 04/15/25 metformin 1,000 mg tablet 1,000 mg PO BID 01/24/19 04/15/25 ascorbic acid (vitamin C) 500 mg 500 mg PO DAILY 07/05/21 04/15/25 capsule loratadine 10 mg tablet 10 mg PO DAILY 01/16/24 04/15/25 magnesium oxide 400 mg (241.3 mg 400 mg PO HS PRN 01/16/24 04/15/25 magnesium) tablet glipizide 2.5 mg tablet, extended 2.5 mg PO DAILY 12/10/24 04/15/25 release 24 hr montelukast 10 mg tablet 10 mg PO DAILY 12/10/24 04/15/25 multivitamin with minerals-folic 1 tab PO DAILY 12/10/24 04/15/25 acid 0.4 mg tablet enalapril maleate 5 mg tablet 5 mg PO DAILY 03/09/25 04/15/25 lidocaine 5 % topical patch 1 patch topical DAILY #15 ea 03/09/25 04/15/25 (Lidoderm) methocarbamol 500 mg tablet 500 mg PO TID #20 tabs 03/09/25 04/15/25 Previous Rx's ?Medication ?Instructions ?Recorded lidocaine 5 % topical patch 1 patch topical DAILY #15 ea 03/09/25 (Lidoderm) methocarbamol 500 mg tablet 500 mg PO TID #20 tabs 03/09/25 Allergies Allergy/AdvReac Type Severity Reaction Status Date / Time empagliflozin (From Allergy Severe severe Verified 04/15/25 04:22 Jardiance) blood in urine meperidine HCl (From Demerol) Allergy Severe Pt states Verified 04/15/25 04:22 caused hospitalization lisinopril AdvReac Intermediate cough Verified 04/15/25 04:22 General Stated Complaint: Nausea/Vomit/Diar JOE: 3 Review of Systems Narrative: see HPI Exam Narrative Exam Narrative: General: Alert, non-toxic well nourished, in no acute distress. Head: Normocephalic, atraumatic Neck: Trachea midline, ?Neck supple. ENT: ?Dry MM.? No oropharygeal lesions or exudate. Cardiac: ?RRR, holosytolic murmur Resp: No respiratory distress. CTAB. Abd: ?Soft, non-distended, nontender : ?No suprapubic tenderness. No CVA tenderness. Extremities: ?No deformities.? No peripheral edema. Neuro: ? GCS 15.? PERRL.? EOMI.? Fluent speech, no dysarthria. Motor- 5/5 strength symmetric bilateral upper and lower extremities Sensation- ?Intact to light touch and symmetric multiple dermatomes including upper and lower extremities Coordination- No dysmetria on finger to nose. No pronator drift. Gait/station: Not tested CRANIAL NERVES: II: Pupils equal and reactive, III, IV, : EOM intact, no gaze preference or deviation, no nystagmus. V: normal sensation in V1, V2, and V3 segments bilaterally VII: no asymmetry, no nasolabial fold flattening VIII: normal hearing to speech IX, X: normal palatal elevation, no uvular deviation XI: 5/5 head turn and 5/5 shoulder shrug bilaterally XII: midline tongue protrusion Course Vital Signs Vital signs: Vital Signs Temperature 35.8 C L 04/15/25 04:11 Pulse 78 04/15/25 04:11 Respiratory Rate 18 04/15/25 04:11 Blood Pressure 193/75 H 04/15/25 04:11 Pulse Oximetry 95 04/15/25 04:11 Temperature 35.8 C L 04/15/25 04:11 Temperature Source Temporal Artery Scan 04/15/25 04:11 Pulse 78 04/15/25 04:11 Respiratory Rate 18 04/15/25 04:11 Blood Pressure 193/75 H 04/15/25 04:11 Blood Pressure Position Supine 04/15/25 04:11 Pulse Oximetry 95 04/15/25 04:11 Oxygen Delivery Method Room Air 04/15/25 04:11 Oxygen Flow Rate 0 04/15/25 04:11 Pain Level 0 04/15/25 04:11 Medical Decision Making 75yo F with hx HTN, DM, presenting for nausea and vomiting. Woke from sleep about 1 hour prior to arrival feeling unwell, sweaty, nauseated; has had three episodes of nonbloody nonbilious emesis. Last BM yesterday or the day before, normal. No other associated symptoms; no chest pain or shortness of breath to suggest ACS (though elderly female with diabetes may well have atypical presentation). No vertigo or headache to suggest central cause/posterior stroke. Hypertensive on arrival, vital signs otherwise reassuring. No abdominal tenderness on exam, does have dry MMM. Normal neurologic exam. EKG NSR, acceptable intervals, no ST segment or T wave abnormalities to suggest occlusive TN. Received 4mg of zofran from EMS [employer]; will give small amount IVF here while awaiting results of workup. Labs reviewed as below, CBC with no leukocytosis and mild anemia, CMP with no actionable abnormalities, Mg slightyl low at 1.6, lipase not suggestive of pancreatitis, lactate normal, BNP not suggestive of heart failure, initial troponin normal, UA not infected CT independently reviewed; no obstruction or free fluid on my view; radiology read with concern for ileus. On reassessment she reports she still feels 'a little queasy' but nausea has much improved. No further vomiting. Repeat troponin stable. Will give reglan and IV magnesium, plan for admission to [facility] after hospitalist shift change. Prior to am sign-over, [facility] radiologist overread CT scan and found no acute intrabdominal pathology including no ileus. On reassessment she reports nausea has returned in full force. No further vomiting. Did have a bowel movement. She is now reporting dizziness and a 'room spinning' sensation. Repeat neurologic exam remains unchanged; no nystagumus, pronator drift, or dysmetria. As she now is reporting vertigo, given her age will get CT/CTA, possibly MRI when available this morning. NIHSS 0 and presented with wake-up symptoms, would not give lytics. Will be signed out to oncoming physician, plan as above. Will also need followup on three hour trop. Lab Data Lab results reviewed: Yes I reviewed the patient's lab results. Labs: Laboratory Tests Range/Units 04/15/25 04/15/25 04/15/25 04:35 05:15 05:34 WBC (4.4-10.8) 10^3/uL 7.86 RBC (3.93-5.22) 10^6/uL 3.64 L Hgb (11.2-15.7) g/dL 10.8 L Hct (36.0-46.0) % 32.9 L MCV (80-95) fL 90 MCH (27.0-33.0) pg 29.7 MCHC (32.0-36.0) % 32.8 RDW (11.7-14.6) % 12.7 Plt Count (130-400) 10^3/uL 234 MPV (8.0-11.0) fL 11.0 Immature Gran % % 0.3 Neutrophils % % 52.8 Lymphocytes % % 32.4 Monocytes % % 10.7 Eosinophils % % 2.7 Basophils % % 1.1 Nucleated RBC % (0.0-0.3) % 0.0 Absolute Neutrophils (1.2-6.7) 10^3/uL 4.15 Absolute Lymphocytes (1.2-3.4) 10^3/uL 2.55 Absolute Monocytes (0.1-0.8) 10^3/uL 0.84 H Absolute Eosinophils (0.0-0.7) 10^3/uL 0.21 Absolute Basophils (0.0-0.2) 10^3/uL 0.09 VBG Lactate (<or=2.0) mmol/L 1.4 Sodium (136-145) mmol/L 138 Potassium (3.5-5.1) mmol/L 3.6 Chloride (98-107) mmol/L 103 Carbon Dioxide (21.0-32.0) mmol/L 27.8 Anion Gap (3-11) mmol/L 7.2 BUN (7-18) mg/dL 14 Creatinine (0.55-1.02) mg/dL 0.7 Est GFR (CKD-EPI 2020) (mL/min/1.73m2) 89.58 Glucose (74-106) mg/dL 280 H Calcium (8.5-10.1) mg/dL 8.0 L Magnesium (1.8-2.4) mg/dL 1.6 L Total Bilirubin (0.2-1.0) mg/dL 0.5 AST (15-37) U/L 11 L ALT (14-59) U/L 16 Alkaline Phosphatase (46-116) U/L 104 Troponin I (<or=51) ng/L 7 7 NT-Pro-B Natriuret Pep (<300) pg/mL 95 Total Protein (6.4-8.2) g/dL 6.2 L Albumin (3.4-5.0) g/dL 3.2 L Lipase (<78) U/L 27 Urine Color (Yellow) Yellow Urine Clarity (Clear) Clear Urine pH (5-8) 6.0 Ur Specific Ferron (1.005-1.025) 1.020 Urine Protein (Neg-Trace) mg/dL Negative Urine Ketones (Negative) mg/dL Trace H Urine Blood (Negative) Negative Urine Nitrite (Negative) Negative Urine Bilirubin (Negative) Negative Urine Urobilinogen (Up to 0.2) mg/dL 0.2 Ur Leukocyte Esterase (Negative) Negative Urine Glucose (Negative) mg/dL 500 H PFSH All Active Problems (Updated 04/15/25 @ 07:02 by Radha Ivy MD) Vertigo (Acute) Nausea & vomiting (Acute) Disorder of the skin and subcutaneous tissue, unspecified (Acute) Diarrhea (Acute) Abdominal bloating (Acute) Diverticula of colon (Acute) Holosystolic murmur (Acute) Benign paroxysmal positional vertigo of right ear (Acute) Perforation of left tympanic membrane (Acute) Lipoma of chest wall (Acute) Mixed conductive and sensorineural hearing loss of left ear with restricted hearing of right ear (Acute) Sensorineural hearing loss (SNHL) of right ear with restricted hearing of left ear (Acute) Otitis externa (Acute) Hyperlipidemia (Acute) Diabetes (Acute) fd: 130's Tendinitis of right wrist (Chronic) Medical History (Updated 04/15/25 @ 07:02 by Radha Ivy MD) Pain in joint of left shoulder Type 2 diabetes mellitus without complication Digestive system finding Family history of malignant neoplasm of digestive organ Heart murmur Cramp in lower leg associated with rest Spondylosis Disorder of breast Cholelithiasis without obstruction Disorder of lung Seasonal allergic rhinitis Essential hypertension Polyneuropathy Benign neoplasm of adrenal gland Migraine headache with aura Gallstones Seasonal allergies Gross hematuria Pulmonary nodule Adrenal adenoma 2020 incidental Breasts asymmetrical Abdominal pain Soft tissue mass Hx of solitary pulmonary nodule pt. reports couple Osteopenia Degenerative joint disease Hx of cardiac murmur per. pt. states her PCP told her this Surgical History (Updated 12/10/24 @ 14:21 by Clarissa Shields RN) History of colonoscopy S/P laparoscopic cholecystectomy History of surgery on right wrist Hx of removal of cyst Left upper arm Hx of tonsillectomy Family History (Updated 12/10/24 @ 14:33 by Clarissa Shields RN) Paternal Grandmother Myocardial infarction Paternal Grandfather Suicide Father Myocardial infarction Glaucoma Alcohol use disorder Mother Emphysematous bleb Diabetes Sister Fibromyalgia Sister Manic-depression Sister Manic-depression Brother , age 5 Muscular dystrophy Brother , age 28 Myocardial infarction Brother Hyperlipidemia Maternal Grandmother Cerebral hemorrhage Maternal Grandfather Colon cancer Social History Smoking/Tobacco Use Status: Never Smoking risk assessment performed?: Yes Alcohol Intake: current Alcohol Intake frequency: holidays/special occasions only Drug use: Never Substance use type: does not use Housing: house Current gender identity: female Do you feel safe at home: Yes Do you feel safe in your relationship?: Yes Additional Social history: [employer]
[2025-04-15] MEDS: Normal Saline 500 ML IV (04:36)
[2025-04-15 04:42] LABS: Abs Immature Grans 0.02 10^3/uL (0.0-0.06); HCT 32.9 % (36.0-46.0); HGB 10.8 g/dL (11.2-15.7); Immature Grans % 0.3 %; MCH 29.7 pg (27.0-33.0); MCHC 32.8 % (32.0-36.0); MCV 90 fL (80-95); MPV 11.0 fL (8.0-11.0); Platelet Count 234 10^3/uL (130-400); RBC 3.64 10^6/uL (3.93-5.22); RDW 12.7 % (11.7-14.6); RDW-SD 42.4 fL; WBC 7.86 10^3/uL (4.4-10.8)
[2025-04-15 05:03] LABS: ALT 16 U/L (14-59); AST 11 U/L (15-37); Albumin 3.2 g/dL (3.4-5.0); Alkaline Phosphatase 104 U/L (46-116); Anion Gap 7.2 mmol/L (3-11); BUN 14 mg/dL (7-18); Bilirubin, Total 0.5 mg/dL (0.2-1.0); CO2 27.8 mmol/L (21.0-32.0); Calcium 8.0 mg/dL (8.5-10.1); Chloride 103 mmol/L (98-107); Estimated GFR 89.58 (mL/min/1.73m2); Glucose 280 mg/dL (74-106); Magnesium 1.6 mg/dL (1.8-2.4); Potassium 3.6 mmol/L (3.5-5.1); Sodium 138 mmol/L (136-145); Total Protein 6.2 g/dL (6.4-8.2); Troponin I 7 ng/L (<or=51)
[2025-04-15 05:23] LABS: Glucose 500 mg/dL (Negative)
[2025-04-15 05:30] LABS: Lipase 27 U/L (<78); NT-proBNP 95 pg/mL (<300)
[2025-04-15] MEDS: Normal Saline - Diluent 50 ML VIAL IJ ×2 (05:34→07:15)
[2025-04-15] MEDS: Normal Saline Flush 10 ML SYR IVP ×2 (05:34→07:15)
[2025-04-15] MEDS: Omnipaque 350 MG/ML 100 ML BTL IJ ×2 (05:34→07:15)
--- NOTE | 2025-04-15 05:39 | DI.VRAD_ITS ---
PROCEDURE INFORMATION: Exam: CT Abdomen And Pelvis With Contrast Exam date and time: 04/15/2025 4:58 AM Age: 75 years old Clinical indication: Nausea and vomiting TECHNIQUE: Imaging protocol: Computed tomography of the abdomen and pelvis with contrast. Contrast material: OMNI 350; Contrast volume: 100 ml; Contrast route: INTRAVENOUS (IV); COMPARISON: CT ABDOMEN PELVIS WO 12/19/2023 2:52 PM FINDINGS: Diaphragm: Small hiatal hernia. Liver: Normal in size. No mass. Gallbladder and biliary ducts: Cholecystectomy. Minimal intra and extrahepatic biliary ductal dilatation. Pancreas: Minimal pancreatic atrophy. No ductal dilatation. Spleen: Normal. No splenomegaly. Adrenal glands: Normal. No mass. Kidneys and ureters: Homogeneous enhancement of parenchyma. Too small to characterize hypoenhancing area or lesion in right kidney. No hydronephrosis. Stomach and bowel: Portions of stomach contracted, limiting evaluation. No dilated segments of small bowel. There are multiple fluid-filled, nondilated segments of small bowel in right lower quadrant and upper pelvis. No colonic dilatation. Scattered colonic diverticula. Appendix: No evidence of appendicitis. Intraperitoneal space: Unremarkable. No free air. No significant fluid collection. Vasculature: Unremarkable. No abdominal aortic aneurysm. Lymph nodes: Unremarkable. No enlarged lymph nodes. Urinary bladder: Unremarkable as visualized. Reproductive: Small anteverted uterus harbors two partially calcified masses, larger measuring 2.2 cm. Bones/joints: The spine demonstrates mild degenerative changes at multiple levels. Soft tissues: Unremarkable. IMPRESSION: 1. Small bowel ileus localized to right lower quadrant and upper pelvis. 2. Colonic diverticula. 3. Small hiatal hernia. 4. Appearance of uterus consistent with it having undergone leiomyomatous change with 2 partially calcified fibroids demonstrated Dictated and Authenticated by: Jonathan Silva MD. Orderin Biju Garcia MD
[2025-04-15] MEDS: Metoclopramide 10 MG/2 ML VIAL IVP (05:51)
[2025-04-15] MEDS: MAGNESIUM SULFATE 1 GM/100 ML BAG IV_INF (05:52)
[2025-04-15 05:59] LABS: Troponin I 7 ng/L (<or=51)
--- NOTE | 2025-04-15 07:00 | DI.CT_ITS ---
Exam(s) CT BRAIN NECK CTA EXAM: CT BRAIN NECK CTA CLINICAL HISTORY: vertigo. TECHNIQUE: Imaging Protocol: Axial CT angiography was performed with multi- slice acquisition and multi-planar and/or 3D reconstructions. CONTRAST MATERIAL: Intravenous: Omnipaque 350 contrast volume:70 mL COMPARISON: No exams were available for comparison FINDINGS: CT Head W/O and W: Ventricles and Extra axial spaces: Normal in size and morphology for the patient's age. Hemorrhage: None. Cerebral parenchyma: There are areas of decreased attenuation in the white matter consistent with chronic microvascular ischemic disease. Dystrophic calcifications are seen in the basal ganglia bilaterally. There is decreased attenuation in the medial aspect of the inferior right cerebellum. Midline shift: None. Brainstem/Cerebellum: Normal. Calvarium: Normal. Visualized Paranasal sinuses/Mastoids: Clear. Soft Tissues: Unremarkable. Enhancement: Unremarkable. CTA Neck W: Common Carotid: Right: No dissection, occlusion or significant stenosis. Atherosclerotic calcification is seen in the distal right common carotid artery without significant stenosis. Left: No dissection, occlusion or significant stenosis. There is atherosclerotic calcification in the common carotid artery without significant stenosis. External Carotid: Right: No occlusion or significant stenosis. Left: No occlusion or significant stenosis. Internal Carotid: Right: No dissection, occlusion or significant stenosis. There is atherosclerosis seen in the proximal internal carotid artery with less than 50 percent stenosis. Left: No dissection, occlusion or significant stenosis. There is atherosclerotic calcifications seen in the proximal internal carotid artery with less than 50 percent stenosis. Vertebral Artery: Right: No dissection, occlusion or significant stenosis. Left: No dissection, occlusion or significant stenosis. Lung Apices: Normal. Bones: Within normal limits for the patient's age. Soft Tissues: Normal. Thyroid gland: Unremarkable. CTA Brain W: Internal Carotid Arteries: No significant stenosis is seen. There is no occlusion or aneurysm. Atherosclerotic calcification is present. Anterior Cerebral Arteries: Right: No aneurysm, occlusion or significant stenosis. Left: No aneurysm, occlusion or significant stenosis. Middle Cerebral Arteries: Right: No aneurysm, occlusion or significant stenosis. Left: No aneurysm, occlusion or significant stenosis. Posterior Cerebral Arteries: There is persistence of the left posterior communicating artery which is a normal variant. Right: No aneurysm, occlusion or significant stenosis. Left: No aneurysm, occlusion or significant stenosis. Vertebral Arteries: Right: No aneurysm, occlusion or significant stenosis. Left: No aneurysm, occlusion or significant stenosis. Basilar Artery: No aneurysm, occlusion or significant stenosis. IMPRESSION: 1. No large vessel occlusion or significant stenosis on the CT angiography of the head. 2. There is an area of decreased attenuation in the inferior medial right cerebellum suspicious for an acute infarct. 3. Age-related cerebral atrophy and chronic microvascular ischemic disease. 4. No occlusion or significant stenosis on the CT angiography of the neck. 5. The preliminary [facility] report was reviewed. RADIATION DOSE DELIVERED: 2,024.15mGy.cm Total DLP DATA REPOSITORY: All CT scans at this facility are submitted to the National Radiology Data Registry (NRDR) Dose Index Registry (DIR) with the [employer] (ACR). RADIATION OPTIMIZATION: All CT scans at this facility use at least one of these dose optimization techniques: automated exposure control; mA and/or kV adjustment per patient size (includes targeted exams where dose is matched to clinical indication); or iterative reconstruction.
--- NOTE | 2025-04-15 08:16 | DI.[facility]_ITS ---
PROCEDURE INFORMATION: Exam: CTA Head Without And With Contrast, Arteriography Exam date and time: 04/15/2025 7:23 AM Age: 75 years old Clinical indication: Stroke-like symptoms; Other: Vertigo TECHNIQUE: Imaging protocol: Computed tomographic angiography of the head without and with contrast. Exam focused on the arteries. 3D rendering (Not supervised by radiologist): MIP and/or 3D reconstructed images were created by the technologist. Contrast material: OMNIPAQUE 350; Contrast volume: 70 ml; Contrast route: INTRAVENOUS (IV); Other technique: STROKE PROTOCOL was implemented. COMPARISON: MR BRAIN WO 03/01/2022 9:26 AM FINDINGS: ANTERIOR CIRCULATION: Right internal carotid artery: Intracranial segment is patent with no significant stenosis or occlusion. No aneurysm. Right middle cerebral artery: No occlusion or significant stenosis. No aneurysm. Right anterior cerebral artery: No occlusion or significant stenosis. No aneurysm. Left internal carotid artery: Intracranial segment is patent with no significant stenosis. No aneurysm. Left middle cerebral artery: No occlusion or significant stenosis. No aneurysm. Left anterior cerebral artery: No occlusion or significant stenosis. No aneurysm. POSTERIOR CIRCULATION: Right vertebral artery: No occlusion or significant stenosis. No aneurysm. Left vertebral artery: No occlusion or significant stenosis. No aneurysm. Basilar artery: No occlusion or significant stenosis. No aneurysm. Right posterior cerebral artery: No occlusion or significant stenosis. No aneurysm. Left posterior cerebral artery: No occlusion or significant stenosis. No aneurysm. HEAD: Brain: There is no acute intracranial hemorrhage. No extra-axial fluid collection. No evidence of acute infarct. Mccall white differentiation is intact. There is no evidence of mass. There is no mass effect or midline shift. No evidence of enhancing mass. Lucency in white matter compatible with microvascular change. Cerebral ventricles: Normal. No ventriculomegaly. Bones: Unremarkable. No acute fracture. Paranasal sinuses: Visualized sinuses are normal. No fluid levels. Mastoid air cells: Visualized mastoids are normal. No mastoid effusion. Soft tissues: Unremarkable. IMPRESSION: 1. No evidence of acute intracranial abnormality. No acute hemorrhage. No evidence of acute infarct or mass. 2. No vascular stenosis or branch vessel occlusion. ASSESSMENT: ASPECTS ([facility] Stroke Program Early CT Score) is 10. PROCEDURE INFORMATION: Exam: CTA Neck Without And With Contrast Exam date and time: 04/15/2025 7:23 AM Age: 75 years old Clinical indication: Stroke-like symptoms; Other: Vertigo TECHNIQUE: Imaging protocol: Computed tomographic angiography of the neck without and with contrast. Exam focused on the cervical segments of the vasculature. 3D rendering (Not supervised by radiologist): MIP and/or 3D reconstructed images were created by the technologist. Contrast material: OMNIPAQUE 350; Contrast volume: 70 ml; Contrast route: INTRAVENOUS (IV); COMPARISON: CT CHEST PE CTA 03/09/2025 9:28 PM FINDINGS: Right common carotid artery: No stenosis. No dissection or occlusion. Right internal carotid artery: No stenosis of the extracranial segment. No dissection or occlusion. Right external carotid artery: No occlusion or stenosis of the origin. Left common carotid artery: No stenosis. No dissection or occlusion. Left internal carotid artery: No stenosis of the extracranial segment. No dissection or occlusion. Left external carotid artery: No occlusion or stenosis of the origin. Right vertebral artery: No stenosis. No dissection or occlusion. Left vertebral artery: No stenosis. No dissection or occlusion. Aorta: Mild calcification in aortic arch. No aneurysm or dissection. Three vessel aortic arch without great vessel origin stenosis. Soft tissues: Normal. No significant soft tissue swelling. Bones/joints: No acute fracture. IMPRESSION: No vascular occlusion. Atherosclerotic change with no left carotid or bilateral vertebral stenosis. There is narrowing of the proximal left internal carotid artery not greater than 50%. REFERENCES: NASCET CRITERIA. The degree of stenosis in the cervical segment of the internal carotid artery is based on NASCET criteria. Normal is no stenosis. Mild is less than 50% stenosis. Moderate is 50-69% stenosis. Severe is 70% to 99% stenosis. Total occlusion is no detectable patent lumen. Dictated and Authenticated by: Gloria Damon MD. Orderin Biju Garcia MD
--- NOTE | 2025-04-15 08:45 | DI.MRI_ITS ---
Exam(s) MR BRAIN WO EXAM: MR BRAIN WO CLINICAL HISTORY: Acute onset vertigo TECHNIQUE: Multiplanar multisequence MRI of the brain was performed. COMPARISON: MR MR BRAIN WO from 03/01/[address] BRAIN NECK CTA from 04/15/2025 FINDINGS: The examination is limited due to patient motion artifact. VENTRICLES AND EXTRA AXIAL SPACES: Normal in size and morphology for the patient's age. MIDLINE SHIFT: None. CEREBRAL PARENCHYMA: There is a moderately large area of restricted diffusion involving the inferior and medial aspect of the right cerebellum consistent with an acute infarct. No space-occupying lesion identified. There are areas of hyperintense signal seen in the white matter on the FLAIR and T2 weighted images consistent with chronic microvascular ischemic disease. HEMORRHAGE: None. BRAINSTEM/CEREBELLUM: Normal. CALVARIUM: Normal. VISUALIZED PARANASAL SINUSES/MASTOIDS:Clear. [place]: Normal flow void. PITUITARY GLAND: Unremarkable. OTHER FINDINGS: None. IMPRESSION: 1. There is a moderately large area of restricted diffusion involving the inferior medial aspect of the right cerebellum consistent with an acute infarct. 2. Age-related cerebral atrophy and chronic microvascular ischemic disease is present. DATA REPOSITORY:
[2025-04-15 08:49] LABS: Troponin I 7 ng/L (<or=51)
--- NOTE | 2025-04-15 10:30 | DI.US_ITS ---
APPROVED REPORT EXAM: Comprehensive 2D, Doppler, and color-flow Echocardiogram Patient Location: In-Patient Room/Bed: [address] Cleaner: [place] RDCS (AE) Indications: CVA Echo Enhancing Agent Indication: Rule out Shunt Agent(s) / Amount(s) Used: Agitated Saline 30.0 cc Comments: Contrast study was performed with 3 IV injections of 10ccs of agitated normal saline, at rest, with cough and post valsalva maneuver. Positive contrast study for right to left shunt flow. Other Information Study Quality: Adequate. Technically limited study due to body habitus, inability to position patient exam done bedside supine ER. Conclusion Mild concentric left ventricular hypertrophy. Ejection fraction is 60 to 65%. Wall motion is normal Normal right ventricular size and function Both atria are normal in size The atrial septum is thin and hypermobile. There appears to be a tiny amount of [id number] shunting Aortic valve is sclerotic and trileaflet without stenosis or regurgitation Mitral annular calcification. Mild mitral regurgitation Wall motion Left Ventricle The left ventricle is normal size. The left ventricular systolic function is normal. The left ventricular ejection fraction is within the normal range. Borderline concentric left ventricular hypertrophy. There is normal LV segmental wall motion. There is no ventricular septal defect visualized. LVEF is 60%. Right Ventricle Right ventricle is grossly normal in size. Right ventricular systolic function is grossly normal. Atria The left atrium size is normal. The right atrium size is normal. Atrial septum is thin and hypermobile. There may be a tiny amount of [id number] shunt Aortic Valve Aortic valve is calcified. Aortic valve is trileaflet. No hemodynamically significant valvular aortic stenosis. No aortic regurgitation is present. Mitral Valve Mild mitral annular calcification. No evidence of mitral valve stenosis. Mild mitral regurgitation. Tricuspid Valve The tricuspid valve is normal in structure. There is no tricuspid valve stenosis. Trace to mild tricuspid regurgitation. Unable to assess PA pressure. Pulmonic Valve The pulmonary valve is normal in structure. There is no pulmonic valvular stenosis. Trace pulmonic regurgitation. Great Vessels The aortic root is normal in size. The ascending aorta is normal in size. Aortic arch is normal in caliber. IVC is normal in size and collapses >50% with inspiration. Pericardium There is no pericardial effusion. 2D Dimensions IVSD d PLAX 1.10 cm F: 0.6-1.0 Ao Root d 2.79 cm F: 2.7 - 3.3 LVPW d PLAX 1.10 cm F: 0.6 - 1.0 Ao Asc Diam d 3.16 cm F: 2.3 - 3.1 LVID d PLAX 4.40 cm F: 3.8 - 5.2 LVDs 2.94 cm F: 2.2 - 3.5 LV EF Teichholz 61.8 % FS 33.01 % LV EDV (Teich) 87.2 mL LV ESV (Teich) 33.3 mL Auto EF LV EDV A4C 79.6 mL LV EDV A2C 82.6 mL LV EDV BP 81.1 mL LV ESV A4C 31.6 mL LV ESV A2C 34.0 mL LV ESV BP 33.3 mL LVEF(%) A4C 60.3 % LVEF(%) A2C 58.9 % LVEF(%) BP 58.9 % LV SV A4C 48.0 ml LV SV A2C 48.6 ml LV SV BP 47.8 ml LV CO A4C 4.3 L/min LV CO A2C 4.3 L/min LV CO BP 4.3 L/min HR A4C 89.34 BPM HR A2C 87.38 BPM LV EDV Index (BP) LA Volume LA Length A4C 4.7 cm LA Length A2C 5.2 cm LA Area A4C s 15.83 cm2 LA Area A2C s 16.40 cm2 LA Vol A4C A-L 44.81 mL LA Vol A2C A-L 43.65 mL LA Vol Biplane A-L 46.4 mL LA Vol/BSA A4C A-L LA Vol/BSA A2C A-L LA Vol/BSA BP A-L 25.4 mL/m2 LA Vol A4C MOD 41.7 mL LA Vol A2C MOD 40.0 mL LA Vol BP MOD 42.6 mL RA Volume RA Area A4C 10.9 cm2 RA ESV A4C (A-L) 23.0mL RA Vol/BSA A4C A-L RA Length A4C 4.4 cm RA ESV A4C (MOD) 21.9mL LV Diastology MV E' medial 0.061 (>0.07 m/s) MV E Vmax 1.17 (0.4-1.3 m/s) MV E/E' MED 19.35 (<14) MV A Vmax 1.60 (0.4-1.3 m/s) MV E' lateral 0.068 (>0.1 m/s) E/A Ratio 0.7 MV E/E' LAT 17.31 (<14) MV E' Average 0.064 m/s MV E/E'(average) 18.27 Aortic Valve AoV Vmax 2.25 m/s LVOT Vmax 1.54 m/s AoV Peak Grad 20.3 mmHg LVOT Peak Grad 9.5 mmHg AoV Area (Vmax) 1.98 cm2 LVOT VTI 0.345 m AoV VTI 0.504 m LVOT Mean Grad 5.4 mmHg AoV Mean Conner. 1.74 m/s LVOT SV 99.99 mL AoV Mean Grad 13.5 mmHg LVOT Diam s 1.90 cm AoV Area (VTI) 1.98 cm2 AV Regurg Peak Gr. 20.32 mmHg Velocity Ratio 0.68 Mitral Valve MV DT 181 (160-240 msec) MV Vmax TIPS 1.70 m/s MV Mean Grad 5.0 (<2mmHg) MV VTI 0.361 m Pulmonary Valve PV Vmax 1.19 (0.5-1.5 m/s) RVOT Vmax 0.97 m/s PV Peak Grad 5.7 mmHg RVOT Peak Gr. 3.8 mmHg PV Mean Conner 0.84 m/s RVOT VTI 0.214 m PV Mean Grad 3.1 mmHg RVOT Mean Gr. 2.1 mmHg
--- NOTE | 2025-04-15 13:30 | W.PC.ACHO ---
Registration Status: ADM SHILA Primary Language: Preferred Language: Serbian ED Information & Data Chief Complaint Nausea/Vomit/Diar 04/15/25 04:38 Triage Note Nausea Vomiting and sweats 04/15/25 04:11 for 45 minutes, normal intake, normal bowel and urination, [id number] dose of metformin yesterday, non compliant with diabetes care Medical / Surgical History (Last Updated 12/10/24 @ 14:21 by Clarissa Shields, FATOU) Pain in joint of left shoulder Type 2 diabetes mellitus without complication Digestive system finding Family history of malignant neoplasm of digestive organ Heart murmur Cramp in lower leg associated with rest Spondylosis Disorder of breast Cholelithiasis without obstruction Disorder of lung Seasonal allergic rhinitis Essential hypertension Polyneuropathy Benign neoplasm of adrenal gland Migraine headache with aura Gallstones Seasonal allergies Gross hematuria Pulmonary nodule Adrenal adenoma Breasts asymmetrical Abdominal pain Soft tissue mass Hx of solitary pulmonary nodule Osteopenia Degenerative joint disease Hx of cardiac murmur (Last Updated 12/10/24 @ 14:21 by Clarissa Shields RN) History of colonoscopy S/P laparoscopic cholecystectomy History of surgery on right wrist Hx of removal of cyst Hx of tonsillectomy Most Recent Vital Signs Temperature 36.3 C L 04/15/25 12:12 Temperature Source Temporal Artery Scan 04/15/25 04:11 Pulse 91 H 04/15/25 12:12 Pulse Rhythm Regular 04/15/25 12:12 Respiratory Rate 18 04/15/25 12:12 Respiratory Effort Normal, Non-Labored 04/15/25 12:12 Respiratory Depth Normal 04/15/25 12:12 Respiratory Pattern Normal 04/15/25 12:12 Blood Pressure 174/81 H 04/15/25 12:12 Blood Pressure Mean 95 04/15/25 09:25 Blood Pressure Position Supine 04/15/25 04:11 Pulse Oximetry 97 04/15/25 12:12 Oxygen Delivery Method Room Air 04/15/25 12:12 Oxygen Flow Rate 0 04/15/25 12:12 Pain Level 0 04/15/25 12:12 Allergies empagliflozin (From Jardiance) Allergy (Severe, Verified 04/15/25 04:22) severe blood in urine meperidine HCl (From Demerol) Allergy (Severe, Verified 04/15/25 04:22) Pt states caused hospitalization pt. passed out, fingers curled up lisinopril Adverse Reaction (Intermediate, Verified 04/15/25 04:22) cough Precautions Isolation Standard precaution 04/15/25 04:23 Active Medications Generic Name Dose Route Start Last Admin Trade Name Jasonq PRN Reason Stop Dose Admin Iohexol 100 ml 04/15/25 05:45 04/15/25 05:34 Omnipaque 350 Mg/Ml 100 Ml Btl IJ 05/15/25 23:59 100 ml DIRECTED GENET Administration Iohexol 100 ml 04/15/25 07:15 04/15/25 07:15 Omnipaque 350 Mg/Ml 100 Ml Btl IJ 05/15/25 23:59 70 ml DIRECTED GENET Administration Sodium Chloride 50 ml 04/15/25 05:45 04/15/25 05:34 Normal Saline - Diluent 50 Ml Vial IJ 50 ml DIRECTED GENET Administration Sodium Chloride 0 ml 04/15/25 05:33 04/15/25 05:34 Normal Saline Flush 10 Ml Syr IVP 10 ml PRN PRN Administration Sodium Chloride 0 ml 04/15/25 07:10 04/15/25 07:15 Normal Saline Flush 10 Ml Syr IVP 10 ml PRN PRN Administration Sodium Chloride 50 ml 04/15/25 07:15 04/15/25 07:15 Normal Saline - Diluent 50 Ml Vial IJ 50 ml DIRECTED GENET Administration IV IV Catheter Type [Left Saline Lock Antecubital] IV Catheter Gauge [Left 18 Antecubital] Diet Orders Category Date Time Status Heart Healthy Eating [DIET] Nutrition 04/15/25 Lunch Active Diagnostics 04/15/25 04/15/25 04/15/25 Range/Units 07:42 05:34 05:15 WBC (4.4-10.8) 10^3/uL RBC (3.93-5.22) 10^6/uL Hgb (11.2-15.7) g/dL Hct (36.0-46.0) % MCV (80-95) fL MCH (27.0-33.0) pg MCHC (32.0-36.0) % RDW (11.7-14.6) % Plt Count (130-400) 10^3/uL MPV (8.0-11.0) fL Immature Gran % % Neutrophils % % Lymphocytes % % Monocytes % % Eosinophils % % Basophils % % Nucleated RBC % (0.0-0.3) % Absolute Neutrophils (1.2-6.7) 10^3/uL Absolute Lymphocytes (1.2-3.4) 10^3/uL Absolute Monocytes (0.1-0.8) 10^3/uL Absolute Eosinophils (0.0-0.7) 10^3/uL Absolute Basophils (0.0-0.2) 10^3/uL VBG Lactate (<or=2.0) mmol/L Sodium (136-145) mmol/L Potassium (3.5-5.1) mmol/L Chloride (98-107) mmol/L Carbon Dioxide (21.0-32.0) mmol/L Anion Gap (3-11) mmol/L BUN (7-18) mg/dL Creatinine (0.55-1.02) mg/dL Est GFR (CKD-EPI 2020) (mL/min/1.73m2) Glucose (74-106) mg/dL Calcium (8.5-10.1) mg/dL Magnesium (1.8-2.4) mg/dL Total Bilirubin (0.2-1.0) mg/dL AST (15-37) U/L ALT (14-59) U/L Alkaline Phosphatase (46-116) U/L Troponin I 7 7 (<or=51) ng/L NT-Pro-B Natriuret Pep (<300) pg/mL Total Protein (6.4-8.2) g/dL Albumin (3.4-5.0) g/dL Lipase (<78) U/L Urine Color Yellow (Yellow) Urine Clarity Clear (Clear) Urine pH 6.0 (5-8) Ur Specific Umbarger 1.020 (1.005-1.025) Urine Protein Negative (Neg-Trace) mg/dL Urine Ketones Trace H (Negative) mg/dL Urine Blood Negative (Negative) Urine Nitrite Negative (Negative) Urine Bilirubin Negative (Negative) Urine Urobilinogen 0.2 (Up to 0.2) mg/dL Ur Leukocyte Esterase Negative (Negative) Urine Glucose 500 H (Negative) mg/dL 04/15/25 Range/Units 04:35 WBC 7.86 (4.4-10.8) 10^3/uL RBC 3.64 L (3.93-5.22) 10^6/uL Hgb 10.8 L (11.2-15.7) g/dL Hct 32.9 L (36.0-46.0) % MCV 90 (80-95) fL MCH 29.7 (27.0-33.0) pg MCHC 32.8 (32.0-36.0) % RDW 12.7 (11.7-14.6) % Plt Count 234 (130-400) 10^3/uL MPV 11.0 (8.0-11.0) fL Immature Gran % 0.3 % Neutrophils % 52.8 % Lymphocytes % 32.4 % Monocytes % 10.7 % Eosinophils % 2.7 % Basophils % 1.1 % Nucleated RBC % 0.0 (0.0-0.3) % Absolute Neutrophils 4.15 (1.2-6.7) 10^3/uL Absolute Lymphocytes 2.55 (1.2-3.4) 10^3/uL Absolute Monocytes 0.84 H (0.1-0.8) 10^3/uL Absolute Eosinophils 0.21 (0.0-0.7) 10^3/uL Absolute Basophils 0.09 (0.0-0.2) 10^3/uL VBG Lactate 1.4 (<or=2.0) mmol/L Sodium 138 (136-145) mmol/L Potassium 3.6 (3.5-5.1) mmol/L Chloride 103 (98-107) mmol/L Carbon Dioxide 27.8 (21.0-32.0) mmol/L Anion Gap 7.2 (3-11) mmol/L BUN 14 (7-18) mg/dL Creatinine 0.7 (0.55-1.02) mg/dL Est GFR (CKD-EPI 2020) 89.58 (mL/min/1.73m2) Glucose 280 H (74-106) mg/dL Calcium 8.0 L (8.5-10.1) mg/dL Magnesium 1.6 L (1.8-2.4) mg/dL Total Bilirubin 0.5 (0.2-1.0) mg/dL AST 11 L (15-37) U/L ALT 16 (14-59) U/L Alkaline Phosphatase 104 (46-116) U/L Troponin I 7 (<or=51) ng/L NT-Pro-B Natriuret Pep 95 (<300) pg/mL Total Protein 6.2 L (6.4-8.2) g/dL Albumin 3.2 L (3.4-5.0) g/dL Lipase 27 (<78) U/L Urine Color (Yellow) Urine Clarity (Clear) Urine pH (5-8) Ur Specific Umbarger (1.005-1.025) Urine Protein (Neg-Trace) mg/dL Urine Ketones (Negative) mg/dL Urine Blood (Negative) Urine Nitrite (Negative) Urine Bilirubin (Negative) Urine Urobilinogen (Up to 0.2) mg/dL Ur Leukocyte Esterase (Negative) Urine Glucose (Negative) mg/dL Intake and Output - 24 Hour Total 04/15/25 04:03 thru 04/15/25 12:12 Intake Total 600 Balance 600 Weight 76.3 kg Intake: IV 600 Other: Urine Appearance Clear Stool Characteristics Formed Falls Risk Assessment History of Falls No History 04/15/25 12:12 Contributing Factors No Factors 04/15/25 12:12 Ambulatory Aids Independent 04/15/25 12:12 Tubes/Lines W/no contributing factors 04/15/25 12:12 Gait Evaluation No gait disturbance 04/15/25 12:12 Cognition No cognitive impairment 04/15/25 12:12 Fall Total Score 10 04/15/25 12:12 Level of Risk Standard/Low Risk 04/15/25 12:12 v v v v v v v v v Sending and/or Receiving Nurses: Please use comment section below to note any information pertinent to the patient hand-off not included above. Information / Comments: Paged at [phone] and report called at [phone]. 18 G L AC. Mag was replaced in ED (1 gm), 500 mL NS bolus, metoclopramide given in ED w/ relief, zofran given by EMS w/ no relief. Pt is pending echo. Report received from: Stefania Lind RN
--- NOTE | 2025-04-15 13:48 | W.PM.HP.N ---
Date of service: 04/15/25 Time of Service: 13:48 Assessment and Plan Assessment and plan (1) CVA (cerebral vascular accident): Status: Chronic Assessment and plan: Acute right cerebellar infarct Admit for acute stroke management Neuro checks per protocol Supportive care for nausea and vertigo (antiemetics, hydration) PT/OT as tolerated Echocardiogram/bubble study to evaluate embolic source Permissive hypertension first 24h (2) Diabetes: Status: Acute Assessment and plan: Hold home meds SSI/FS ACHS (3) Vertigo: Status: Acute Assessment and plan: Treat with antiemetics Monitor electrolytes; correct magnesium/calcium (4) Nausea & vomiting: Status: Acute Assessment and plan: Treat with antiemetics Monitor electrolytes; correct magnesium/calcium (5) Holosystolic murmur: Status: Acute History of Present Illness History of Present Illness Chief Complaint: Nausea, vomiting, vertigo Narrative: 75-year-old female with a history of hypertension and type 2 diabetes mellitus presents via EMS for acute onset nausea, vomiting, and diaphoresis. She reports feeling unwell upon waking from sleep about one hour prior to arrival, with three episodes of non-bloody, non-bilious emesis. She denies chest pain, headache, abdominal pain, back pain, dysuria, hematuria, numbness, or weakness. During her ED stay, she developed vertigo described as a ?room spinning? sensation. Initial neurologic exam was normal with NIHSS 0. No focal deficits were noted on repeat exam. She has a history of benign paroxysmal positional vertigo, sensorineural hearing loss, and a holosystolic heart murmur. Labs (ED): Mild anemia (Hgb 10.8 g/dL), low magnesium (1.6 mg/dL) and calcium (8.0 mg/dL), hyperglycemia (280 mg/dL). Troponin, BNP, lipase, lactate normal. Urine glucose elevated; otherwise UA negative. Imaging: CT/CTA head and neck: no acute intracranial pathology MRI brain: acute right cerebellar infarct; chronic microvascular ischemic changes Patient is placed on observation status on the medical floor for acute right cerebellar infarct presenting with nausea, vomiting, and vertigo; chronic microvascular ischemic changes; underlying hypertension, diabetes, and hyperlipidemia. Admit for stroke management, supportive care, neuro checks, continue home medications, correct electrolytes, bubble echocardiogram/bubble study, PT/OT as tolerated. Patient is a full code. Patient agrees with plan of care. Review of Systems Narrative: General: Fatigue, diaphoresis HEENT: Vertigo; denies headache, vision changes Cardiac: Denies chest pain, palpitations Respiratory: Denies shortness of breath, cough GI: Nausea, vomiting; denies abdominal pain, diarrhea, constipation : Denies dysuria, hematuria Musculoskeletal: No weakness, no joint pain Neuro: Vertigo; denies numbness, weakness, dysarthria Skin: No rash, lesions Other: No fevers, chills PFSH All Active Problems (Updated 04/15/25 @ 14:01 by Joan Tejeda NP) CVA (cerebral vascular accident) (Chronic) Vertigo (Acute) Nausea & vomiting (Acute) Disorder of the skin and subcutaneous tissue, unspecified (Acute) Diarrhea (Acute) Abdominal bloating (Acute) Diverticula of colon (Acute) Holosystolic murmur (Acute) Benign paroxysmal positional vertigo of right ear (Acute) Perforation of left tympanic membrane (Acute) Lipoma of chest wall (Acute) Mixed conductive and sensorineural hearing loss of left ear with restricted hearing of right ear (Acute) Sensorineural hearing loss (SNHL) of right ear with restricted hearing of left ear (Acute) Otitis externa (Acute) Hyperlipidemia (Acute) Diabetes (Acute) fd: 130's Tendinitis of right wrist (Chronic) Medical History (Updated 04/15/25 @ 14:01 by Joan Tejeda NP) Pain in joint of left shoulder Type 2 diabetes mellitus without complication Digestive system finding Family history of malignant neoplasm of digestive organ Heart murmur Cramp in lower leg associated with rest Spondylosis Disorder of breast Cholelithiasis without obstruction Disorder of lung Seasonal allergic rhinitis Essential hypertension Polyneuropathy Benign neoplasm of adrenal gland Migraine headache with aura Gallstones Seasonal allergies Gross hematuria Pulmonary nodule Adrenal adenoma 2020 incidental Breasts asymmetrical Abdominal pain Soft tissue mass Hx of solitary pulmonary nodule pt. reports couple Osteopenia Degenerative joint disease Hx of cardiac murmur per. pt. states her PCP told her this Surgical History (Updated 12/10/24 @ 14:21 by Clarissa Shields RN) History of colonoscopy S/P laparoscopic cholecystectomy History of surgery on right wrist Hx of removal of cyst Left upper arm Hx of tonsillectomy Family History (Updated 04/22/25 @ 14:33 by Clarissa Shields RN) Paternal Grandmother Myocardial infarction Paternal Grandfather Suicide Father Myocardial infarction Glaucoma Alcohol use disorder Mother Emphysematous bleb Diabetes Sister Fibromyalgia Sister Manic-depression Sister Manic-depression Brother , age 5 Muscular dystrophy Brother , age 28 Myocardial infarction Brother Hyperlipidemia Maternal Grandmother Cerebral hemorrhage Maternal Grandfather Colon cancer Social History Smoking/Tobacco Use Status: Never Smoking risk assessment performed?: Yes Alcohol Intake: current Alcohol Intake frequency: holidays/special occasions only Drug use: Never Substance use type: does not use Housing: house Current gender identity: female Do you feel safe at home: Yes Do you feel safe in your relationship?: Yes Additional Social history: UTAP Meds Allergies and Home Medications Allergies Allergy/AdvReac Type Severity Reaction Status Date / Time empagliflozin (From Allergy Severe severe Verified 04/15/25 04:22 Jardiance) blood in urine meperidine HCl (From Demerol) Allergy Severe Pt states Verified 04/15/25 04:22 caused hospitalization lisinopril AdvReac Intermediate cough Verified 04/15/25 04:22 Home Medications ?Medication ?Instructions ?Recorded ?Confirmed ?Type calcium carbonate (Calcium 500) 500 mg PO DAILY 01/24/19 04/15/25 History cyanocobalamin (vitamin B-12) 1,000 mcg PO DAILY 01/24/19 04/15/25 History 1,000 mcg tablet (Vitamin B-12) lovastatin 20 mg tablet 20 mg PO DAILY 01/24/19 04/15/25 History metformin 1,000 mg tablet 1,000 mg PO BID 01/24/19 04/15/25 History ascorbic acid (vitamin C) 500 mg 500 mg PO DAILY 07/05/21 04/15/25 History capsule loratadine 10 mg tablet 10 mg PO DAILY 01/16/24 04/15/25 History magnesium oxide 400 mg (241.3 mg 400 mg PO HS PRN 01/16/24 04/15/25 History magnesium) tablet glipizide 2.5 mg tablet, extended 2.5 mg PO DAILY 12/10/24 04/15/25 History release 24 hr montelukast 10 mg tablet 10 mg PO DAILY 12/10/24 04/15/25 History multivitamin with minerals-folic 1 tab PO DAILY 12/10/24 04/15/25 History acid 0.4 mg tablet enalapril maleate 5 mg tablet 5 mg PO DAILY 03/09/25 04/15/25 History lidocaine 5 % topical patch 1 patch topical DAILY #15 ea 03/09/25 04/15/25 Rx (Lidoderm) methocarbamol 500 mg tablet 500 mg PO TID #20 tabs 03/09/25 04/15/25 Rx Exam Narrative Exam Narrative: General: Alert, non-toxic, well-nourished Head/Neck: Normocephalic, atraumatic, neck supple, trachea midline ENT: Dry mucous membranes, no lesions Cardiac: RRR, holosystolic murmur Respiratory: CTAB, no distress Abdomen: Soft, non-distended, non-tender : No CVA or suprapubic tenderness Extremities: No deformities, no edema Neuro: GCS 15, cranial nerves II-XII intact, motor 5/5, sensation intact, coordination normal, no pronator drift, NIHSS 0 Gait/Station: Not tested Results Labs 04/15/25 04:35 04/15/25 04:35 Labs: Laboratory Results - last 24 hr 04/15/25 04/15/25 04/15/25 04:35 05:15 05:34 WBC 7.86 RBC 3.64 L Hgb 10.8 L Hct 32.9 L MCV 90 MCH 29.7 MCHC 32.8 RDW 12.7 Plt Count 234 MPV 11.0 Immature Gran % 0.3 Neutrophils % 52.8 Lymphocytes % 32.4 Monocytes % 10.7 Eosinophils % 2.7 Basophils % 1.1 Nucleated RBC % 0.0 Absolute Neutrophils 4.15 Absolute Lymphocytes 2.55 Absolute Monocytes 0.84 H Absolute Eosinophils 0.21 Absolute Basophils 0.09 VBG Lactate 1.4 Sodium 138 Potassium 3.6 Chloride 103 Carbon Dioxide 27.8 Anion Gap 7.2 BUN 14 Creatinine 0.7 Est GFR (CKD-EPI 2020) 89.58 Glucose 280 H Calcium 8.0 L Magnesium 1.6 L Total Bilirubin 0.5 AST 11 L ALT 16 Alkaline Phosphatase 104 Troponin I 7 7 NT-Pro-B Natriuret Pep 95 Total Protein 6.2 L Albumin 3.2 L Lipase 27 Urine Color Yellow Urine Clarity Clear Urine pH 6.0 Ur Specific [place] 1.020 Urine Protein Negative Urine Ketones Trace H Urine Blood Negative Urine Nitrite Negative Urine Bilirubin Negative Urine Urobilinogen 0.2 Ur Leukocyte Esterase Negative Urine Glucose 500 H 04/15/25 07:42 WBC RBC Hgb Hct MCV MCH MCHC RDW Plt Count MPV Immature Gran % Neutrophils % Lymphocytes % Monocytes % Eosinophils % Basophils % Nucleated RBC % Absolute Neutrophils Absolute Lymphocytes Absolute Monocytes Absolute Eosinophils Absolute Basophils VBG Lactate Sodium Potassium Chloride Carbon Dioxide Anion Gap BUN Creatinine Est GFR (CKD-EPI 2020) Glucose Calcium Magnesium Total Bilirubin AST ALT Alkaline Phosphatase Troponin I 7 NT-Pro-B Natriuret Pep Total Protein Albumin Lipase Urine Color Urine Clarity Urine pH Ur Specific [place] Urine Protein Urine Ketones Urine Blood Urine Nitrite Urine Bilirubin Urine Urobilinogen Ur Leukocyte Esterase Urine Glucose Last Vital Signs Temp 36.3 C L 04/15/25 12:12 Pulse 91 H 04/15/25 12:12 Resp 18 04/15/25 12:12 BP 174/81 H 04/15/25 12:12 Pulse Ox 97 04/15/25 12:12 Time Spent Time spent with Patient: 40-54 minutes Time was spent: preparing to see the patient(eg.review tests), obtaining and/or reviewing separately otained hiistory, ordering medications,tests, procedures, referring, communicating with other health healthcare administration internship, indepentently interpreting results, counseling the patient and care coordination
[2025-04-15] MEDS: Aspirin 325 MG TAB PO (14:21)
[2025-04-15] MEDS: Clopidogrel 300 MG TAB PO (14:21)
[2025-04-15] MEDS: Insulin Aspart 300 UNITS/3 ML PEN SC ×2 (17:01→20:51)
[2025-04-15] MEDS: Atorvastatin 40 MG TAB 80 MG PO (20:41)
--- NOTE | 2025-04-16 | DI.US_ITS ---
Exam(s) US EXTREMITY VENOUS BI EXAM: US EXTREMITY VENOUS BI CLINICAL HISTORY: RO DVT - Stroke. TECHNIQUE: Bilateral lower extremity venous ultrasound performed using grayscale, color-flow, and spectral Doppler analysis. COMPARISON: No exams were available for comparison FINDINGS: The right common femoral, femoral and popliteal veins demonstrate normal compressibility, augmentation, and color Doppler. The posterior tibial and peroneal veins are patent. The saphenofemoral junction is unremarkable. There is no evidence of a Sharma's cyst. The soft tissues are unremarkable. The left common femoral, femoral and popliteal veins demonstrate normal compressibility, augmentation, and color Doppler. The posterior tibial and peroneal veins are patent. The saphenofemoral junction is unremarkable. There is no evidence of a Sharma's cyst. The soft tissues are unremarkable. IMPRESSION: 1. No evidence of a right lower extremity DVT. 2. No evidence of a left lower extremity DVT. DATA REPOSITORY:
[2025-04-16 03:25] VITALS: BP 191/92; PULSE 97; RESP 22; TEMP 36.3; O2SAT 95
[2025-04-16] MEDS: Ondansetron 4 MG/2 ML VIAL IVP (03:32)
[2025-04-16] MEDS: Normal Saline Flush 10 ML SYR IVP ×2 (03:33→03:54)
[2025-04-16] MEDS: Metoclopramide 10 MG/2 ML VIAL IVP (03:54)
[2025-04-16 06:51] LABS: Abs Immature Grans 0.07 10^3/uL (0.0-0.06); HCT 38.4 % (36.0-46.0); HGB 12.9 g/dL (11.2-15.7); Immature Grans % 0.4 %; MCH 29.5 pg (27.0-33.0); MCHC 33.6 % (32.0-36.0); MCV 88 fL (80-95); MPV 11.3 fL (8.0-11.0); Platelet Count 301 10^3/uL (130-400); RBC 4.37 10^6/uL (3.93-5.22); RDW 12.7 % (11.7-14.6); RDW-SD 41.6 fL; WBC 15.81 10^3/uL (4.4-10.8)
[2025-04-16 07:16] LABS: Anion Gap 12.8 mmol/L (3-11); BUN 13 mg/dL (7-18); CO2 23.2 mmol/L (21.0-32.0); Calcium 8.9 mg/dL (8.5-10.1); Chloride 98 mmol/L (98-107); Estimated GFR 89.58 (mL/min/1.73m2); Glucose 310 mg/dL (74-106); Magnesium 1.9 mg/dL (1.8-2.4); Potassium 3.5 mmol/L (3.5-5.1); Sodium 134 mmol/L (136-145)
[2025-04-16 07:37] VITALS: BP 190/87; PULSE 104; RESP 20; TEMP 36.9; O2SAT 95
--- NOTE | 2025-04-16 08:45 | INITIAL_ITS ---
Date of service: 04/16/25 Time of Service: 08:45 Care Management Initial Assmt Initial Assessment Reason for Hospitalization: CVA Functional Status/Living Situation Patient Presentation: La was awake and lying in bed when CM met with her, she is pleasant and easy to engage in conversation. She lives in [place] (on [facility]) with her Salvatore. She is active and independent at baseline. 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 Town of Residence: [place] Resides with: Spouse (Salvatore) Significant Other/Family: Local ( ) Natural Supports: Salvatore Daughter in [place] Employment Status: Employed (Works twice a week at [employer]) and Retired Instrumental Activities of Daily Living (ADLs): Independent Medications Medication Management: No Issues/Barriers identified Advance Directives Advance Directives: Do you have an Advance Directive: Y , 10:53 AD On File at [facility]: Y 01/09/23, 10:53 Date Asked 12/09/24 12/09/24, 12:36 AD Date Reviewed 03/09/25 03/09/25, 19:56 COLST On File at [facility] No 01/09/23, 10:53 COLST Date Scanned Code Status Resuscitation Status Full Code Portal Pt does not currently have a portal and education provided: Yes Insurance Coverage/Financial Issues Insurance: BC/BS [facility] - [id number] Care Team Visit Care Team Role Provider Type Joan Tejeda NP MD [facility] STAFF PHYSICIAN Marina Yi Primary Care Provider ADV PRACTICE REGISTERED NURSE Pura Watters Other Providers REG OCCUPATIONAL THERAPIST [place] Giron RDN, [facility] Other Providers WINDOW INSTALLATION SUBCONTRACTOR Hernán Ha Other Providers OTHER Salo Driscoll RDN Other Providers WINDOW INSTALLATION SUBCONTRACTOR Stuart Bowser MD Emergency Provider [facility] STAFF PHYSICIAN Ludwin Hartman Admit Provider [facility] STAFF PHYSICIAN Attending Provider Discharge Potential Discharge Needs: PCP F/U Appt Anticipated Barriers to Discharge: None Identified Patient/Family Education Needs: Review discharge instructions, discuss Ask Me Three Transportation: Private vehicle Plan: Anticipate La will discharge home via private vehicle with family once medically cleared. Patient will follow up with community providers and continue per discharge plan of care. CM will continue to follow and assess for discharge needs. Social Determinants of Health Screening Social Determinants of health last assessed in clinic: 04/16/25 Will the Patient Participate in the Screening?: Yes Do you worry about having a steady place to live?: no Problems where you live: no known problems In the past 12 months, have you had to go without electric, gas, oil or water in your home?: no 1. Within the past 12 months, we worried whether our food would run out before we got money to buy more.: Never true 2. Within the past 12 months, the food we bought just didn't last and we didn't have money to get more.: Never true Has lack of transportation kept you from medical appointments or from doing things needed for daily living?: no Has anyone in your life made you feel unsafe or unsupported?: no How hard is it for you to pay for the very basics like food, housing, medical care, and heating? Would you say it is:: Not hard at all Do you want help finding or keeping work or a job?: I do not need or want help If for any reason you need help with day-to-day activities such as bathing, preparing meals, shopping, managing finances, etc., do you get the help you need?: I get all the help I need How often do you feel lonely or isolated from those around you?: Never Do you speak a language other than Malay at home?: No Does the patient want assistance with any of the above?: No PFSH All Active Problems (Updated 04/15/25 @ 14:01 by Joan Tejeda NP) CVA (cerebral vascular accident) (Chronic) Vertigo (Acute) Nausea & vomiting (Acute) Disorder of the skin and subcutaneous tissue, unspecified (Acute) Diarrhea (Acute) Abdominal bloating (Acute) Diverticula of colon (Acute) Holosystolic murmur (Acute) Benign paroxysmal positional vertigo of right ear (Acute) Perforation of left tympanic membrane (Acute) Lipoma of chest wall (Acute) Mixed conductive and sensorineural hearing loss of left ear with restricted hearing of right ear (Acute) Sensorineural hearing loss (SNHL) of right ear with restricted hearing of left ear (Acute) Otitis externa (Acute) Hyperlipidemia (Acute) Diabetes (Acute) fd: 130's Tendinitis of right wrist (Chronic) Medical History (Updated 04/15/25 @ 14:01 by Joan Tejeda NP) Pain in joint of left shoulder Type 2 diabetes mellitus without complication Digestive system finding Family history of malignant neoplasm of digestive organ Heart murmur Cramp in lower leg associated with rest Spondylosis Disorder of breast Cholelithiasis without obstruction Disorder of lung Seasonal allergic rhinitis Essential hypertension Polyneuropathy Benign neoplasm of adrenal gland Migraine headache with aura Gallstones Seasonal allergies Gross hematuria Pulmonary nodule Adrenal adenoma 2020 incidental Breasts asymmetrical Abdominal pain Soft tissue mass Hx of solitary pulmonary nodule pt. reports couple Osteopenia Degenerative joint disease Hx of cardiac murmur per. pt. states her PCP told her this Surgical History (Updated 12/10/24 @ 14:21 by Clarissa Shields RN) History of colonoscopy S/P laparoscopic cholecystectomy History of surgery on right wrist Hx of removal of cyst Left upper arm Hx of tonsillectomy Family History (Updated 12/10/24 @ 14:33 by Clarissa Shields RN) Paternal Grandmother Myocardial infarction Paternal Grandfather Suicide Father Myocardial infarction Glaucoma Alcohol use disorder Mother Emphysematous bleb Diabetes Sister Fibromyalgia Sister Manic-depression Sister Manic-depression Brother , age 5 Muscular dystrophy Brother , age 28 Myocardial infarction Brother Hyperlipidemia Maternal Grandmother Cerebral hemorrhage Maternal Grandfather Colon cancer Social History Smoking/Tobacco Use Status: Never Smoking risk assessment performed?: Yes Alcohol Intake: current Alcohol Intake frequency: holidays/special occasions only Drug use: Never Substance use type: does not use Housing: house Current gender identity: female Do you feel safe at home: Yes Do you feel safe in your relationship?: Yes Additional Social history: UTAP
--- NOTE | 2025-04-16 10:25 | PT.INIE ---
PT Notes Visit Reasons: Cerebrovascular accident Physical Therapy Inpatient Initial Evaluation Date: 04/16/2025 Referring Doctor: Joan Tejeda NP PT Orders: PT CONSULT: Eval/Treat Precautions: Fall. Standard. Activity as tolerated. Patient Profile/Admitting Diagnosis: La is a 75-year-old female who presented to the ED on 04/15/2025 due to worsening R-sided neck and R shoulder pain with deep breaths. Brain MRI done on 04/15/2025 showed decreased perfusion in the R inferomedial cerebellararea indicative of an cute infarct. PMHX: All Active Problems (Updated 04/15/25 @ 14:01 by Joan Tejeda NP) CVA (cerebral vascular accident) (Chronic) Vertigo (Acute) Nausea & vomiting (Acute) Disorder of the skin and subcutaneous tissue, unspecified (Acute) Diarrhea (Acute) Abdominal bloating (Acute) Diverticula of colon (Acute) Holosystolic murmur (Acute) Benign paroxysmal positional vertigo of right ear (Acute) Perforation of left tympanic membrane (Acute) Lipoma of chest wall (Acute) Mixed conductive and sensorineural hearing loss of left ear with restricted hearing of right ear (Acute) Sensorineural hearing loss (SNHL) of right ear with restricted hearing of left ear (Acute) Otitis externa (Acute) Hyperlipidemia (Acute) Diabetes (Acute) fd: 130'sTendinitis of right wrist (Chronic) Medical History (Updated 04/15/25 @ 14:01 by Joan Tejeda NP) Pain in joint of left shoulder Type 2 diabetes mellitus without complication Digestive system finding Family history of malignant neoplasm of digestive organ Heart murmur Cramp in lower leg associated with rest Spondylosis Disorder of breast Cholelithiasis without obstruction Disorder of lung Seasonal allergic rhinitis Essential hypertension Polyneuropathy Benign neoplasm of adrenal gland Migraine headache with aura Gallstones Seasonal allergies Gross hematuria Pulmonary nodule Adrenal adenoma 2020 incidental Breasts asymmetrical Abdominal pain Soft tissue mass Hx of solitary pulmonary nodule pt. reports couple Osteopenia Degenerative joint disease Hx of cardiac murmur per. pt. states her PCP told her this Surgical History (Updated 12/10/24 @ 14:21 by Clarissa Shields RN) History of colonoscopy S/P laparoscopic cholecystectomy History of surgery on right wrist Hx of removal of cyst Left upper armHx of tonsillectomy Social History/Home Situation: Lives in a private home with 1 step to enter. very supportive. Independent without assistive device prior to admission. Equipment Owned/DME: FWW, SPC, wheelchair Subjective: Complained of dizziness with sitting and standing with mild increase after walking from room to therapy room, resolved with rest. No report of R neck nor R shoulder pain throughout. Did complain of a headache that Nurse Leyv was aware of and has been managing. Lightheadedness increased minimally with mobility performance but resolved with rest. Verbalized increased shakiness with movement that was not there prior to this admission. Objective: General Observation: Resting in bed. Husbnad in room. IV through the L UE. Mental Status: Alert and oriented as to person, place, time, and purpose. Able to pay attention, focus, and respond appropriately. Pain: As above Vital Signs: BP 188/92 mmHg, SaO2 97% on RA, HR 108 after walking about 200 feet from room to therapy room ROM: Right Upper Extremity: Shoulder Flexion WFL. Shoulder abduction WFL. Elbow flexion WFL. Wrist flexion WFL. Functional opening and closing of hand WFL. Left Upper Extremity: Shoulder Flexion WFL. Shoulder abduction WFL. Elbow flexion WFL. Wrist flexion WFL. Functional opening and closing of hand WFL. Right Lower Extremity: Hip flexion WFL. Hip abduction WFL. Knee flexion WFL. Ankle dorsiflexion WFL. Ankle plantarflexion WFL. Left Lower Extremity: Hip flexion WFL. Hip abduction WFL. Knee flexion WFL. Ankle dorsiflexion WFL. Ankle plantarflexion WFL. Strength: Right Upper Extremity: Shoulder flexors 4-/5. Shoulder abductors 4-/5. Elbow flexors 4/5. Elbow extensors 4/5. Ammonia Distiller strong. Left Upper Extremity: Shoulder flexors 4-/5. Shoulder abductors 4-/5. Elbow flexors 4/5. Elbow extensors 4/5. Ammonia Distiller strong. Right Lower Extremity: Hip flexors 4/5. Hip abductors 4/5. Knee flexors 4/5. Knee extensors 4/5. Ankle dorsiflexors 4/5. Ankle plantarflexors 4/5. Left Lower Extremity: Hip flexors 4/5. Hip abductors 4/5. Knee flexors 4/5. Knee extensors 4/5. Ankle dorsiflexors 4/5. Ankle plantarflexors 4/5. Bed Mobility/Transfers: MInimal cueing provided for use of B hands as needed for support, movement sequence, AD management, and posture to reduce fall risk and minimize pain report Rolling stand by assist Supine to sit stand by assist Sit to supine stand by assist Sit to stand contact guard assist with FWW Stand to sit contact guard assist with FWW Bed to toilet seat contact guard assist with FWW Toliet seat to bed contact guard assist with FWW Bed to reclining chair contact guard assist with FWW Gait: Facilitated step through gait pattern covering a distance of 200 feet from patient's room to the therapy room and back using the front-wheeled walker. Patient initially was stepping to th level of each foot so unlike the regular alternating step through pattern that she wsa doing prior to admission. Base of support was also narrowed but no LOB. Contact guard assist was provided by PT as patient was showing some shakiness and instability. Stairs: Navigated 6 x 4-inch steps and 4 x 6-inch steps while holding onto B rails for support, contcat guard assist provided. Minimal verbal cueing for technique and hand placement onto B rails. Balance: Static Sitting: Normal Dynamic Sitting: Normal Static Standing: Fair Dynamic Standing: Fair Special Tests: Mobility Limitations Standardized Measure [facility] 6 clicks Basic Mobility Inpatient Short Form: Raw Score: 18 CMS Score: 47% deficit Informed Consent/Education: Patient was instructed in purpose of PT consult and plan of care. Agreeable to proceed with established PT POC to achieve personal goals. Assessment: Vertiginous. Patient with symmetric generalized weakness in B UE/LE. Rapid alternating movement intact. Steps appeared to be hesitant and base of support narrowed initially but with cueing was able to increase steps length as well as manage step through gait pattern. Patient demonstrated functional mobility decline now needing a front-wheeled walker for all mmobility ADL performance for increased stability as cerebellar stroke has apparently affected her walking. Symptom of dizziness may also be attributed to area of brain affectation but BP has been in the high range of up to 188/92 mmHg after the walk from her room to the therapy room with some incrase in dizziness report. Patient presents with clinical signs and symptoms consistent with current/admitting diagnoses that have resulted to mobility limitations, gait instability, generalized weakness, and overall ADL decline as demonstrated by the following impairment level findings: 1. Decreased strength to B UE/LE major muscle groups 2. Impaired sitting/standing balance 3. Impaired activity tolerance 4. Dizziness Impairments are contributing to the following functional limitations: 1. Decline in bed mobility skills 2. Decline in transfer skills 3. Difficulty with ambulation without assistive device and physical assistance 4. Increased completion time for mobility ADL performance 5. Increased risk for falls 6. Difficulty with managing steps alone safely Patient is assessed as a [id number] complexity based on the following: History: 75-year-old female with past medical history as indicated above Examination: Demonstrable impairment in strength, balance, and mobility level with underlying impairments and functional limitations as exhibited above as well as deficit score of 47% utilizing the [facility] Mobility Inpatient Short Form Presentation: Evolving Decision Makin mderate complexity Goals: Goals X1 week 1. Supine-Sit independent 2. Sit-Supine independent 3. Sit-Stand independent 4. Stand-Sit independent with FWW 5. Bed-Chair independent with FWW 6. Chair-Bed independent with FWW 7. Independent gait on level surface with use of FWW for at least 300 feet without report of pain nor dyspnea 8. Independent stair negotiation while holding onto B rails for at least 3 steps without report of pain nor dyspnea 9. Independent with home exercise program 10. Fair static and dynamic standing balance/tolerance Plan of Care/Treatment Plan: 1-2x/day, 7 days/week x 1 week. Plan of care has been reviewed with the INSTRUCTIONAL WRITER providing the service under Physical Therapy direction. Initiate Physical Therapy intervention for pain management as needed, strengthening, bed mobility, transfers, gait, stairs, balance training, and use of assistive device. DISCHARGE RECOMMENDATIONS: Patient will benefit from OP PT for neurologic/vestibular rehabilitation to address symptoms of R cerebellar CVA TREATMENT CODE/TIME: 81592 x 20 minutes for 1 unit, 84666 x 32 minutes for 2 units (10:25-11:14). Thank you for the opportunity to participate in the care of this patient. Deepa Dunn PT, DPT, CLT [facility] [place], [place]
[2025-04-16 11:00] VITALS: BP 180/83; PULSE 107; RESP 16; TEMP 36.5; O2SAT 98
--- NOTE | 2025-04-16 11:07 | PHA.REVIEW2 ---
Pharmacy Admission Review Admission Clinical Review Admission Pharmacy Review: Vertigo (Acute) Nausea & vomiting (Acute) Holosystolic murmur (Acute) Diabetes (Acute) empagliflozin (From Jardiance) Allergy (Severe, Verified 04/15/25 04:22) severe blood in urine meperidine HCl (From Demerol) Allergy (Severe, Verified 04/15/25 04:22) Pt states caused hospitalization lisinopril Adverse Reaction (Intermediate, Verified 04/15/25 04:22) cough Resuscitation Status Full Code Height 5 ft 4 in Weight 76.3 kg Comments Comments/Follow Ups: Follow up on home med question (glipizide) Pharmacy Admission Review Renal Dosing Renal Dosing: BUN 13 mg/dL (7-18) 04/16/25 06:20 Creatinine 0.7 mg/dL (0.55-1.02) 04/16/25 06:20 Medications needing adjustments: Reviewed (CrCl 47.86 mL/min) List of meds needing interventions: Current medications are okay Anticoagulation Anticoagulation: Hgb 12.9 g/dL (11.2-15.7) D 04/16/25 06:20 Hct 38.4 % (36.0-46.0) 04/16/25 06:20 Plt Count 301 10^3/uL (130-400) 04/16/25 06:20 Creatinine 0.7 mg/dL (0.55-1.02) 04/16/25 06:20 DVT Prophylaxis: Reviewed Medications: Enoxaparin (40mg daily) Relevant Labs Relevant Labs: Sodium 134 mmol/L (136-145) L 04/16/25 06:20 Potassium 3.5 mmol/L (3.5-5.1) 04/16/25 06:20 Chloride 98 mmol/L (98-107) 04/16/25 06:20 Magnesium 1.9 mg/dL (1.8-2.4) 04/16/25 06:20 Electrolytes, C-Reactive P, ESR: Reviewed (WBC 15.81 - increased from 7.86) DM Control DM Control: Glucose 310 mg/dL (74-106) H 04/16/25 06:20 DM Control: Reviewed Insulin Dosing, Diabetic Medication: Has order for SS insulin meals and bedtime Cardiac Review Cardiac Review: Troponin I 7 ng/L (<or=51) 04/15/25 07:42 NT-Pro-B Natriuret Pep 95 pg/mL (<300) 04/15/25 04:35 Blood Pressure 190/87 0737 Blood Pressure 191/92 0325 BP, HR, EF%: Reviewed (HR 104) List meds needing interventions: Has order for enalapril 5mg daily QTc Review QTc: Reviewed (465 from 04/15) IV to PO Switch IV Medications: Reviewed (metoclopramide and ondansetron) Home Meds Home Med List reviewed: Intervened Relevent Home Meds Not ordered & why?: glipizide (on hold per H+P), lovastatin (has order for high intensity atorvastatin) and metformin (on hold per H+P) Asked nurse to confirm glipizide dose. Listed as 2.5mg daily on home med list but most recently filled for 5mg daily. Waiting to hear back. Current Meds Current Medication Order Review: Intervened Comments: Had orders active for both atorvastatin and lovastatin. Discontinued lovastatin (patient changed to high intensity atorvastatin) - provider aware. Added IV access order Comments Comments/Follow Ups: Follow up on home med question (glipizide)
[2025-04-16] MEDS: Insulin Aspart 300 UNITS/3 ML PEN SC ×3 (11:19→21:40)
[2025-04-16] MEDS: Multivitamin w/Minerals TAB 1 TAB PO (11:20)
[2025-04-16] MEDS: Calcium Carbonate *TUMS* 500 MG CHEW PO (11:20)
[2025-04-16] MEDS: Acetaminophen 325 MG TAB 650 MG PO (11:20)
[2025-04-16] MEDS: Cyanocobalamin 500 MCG TAB 1000 MCG PO (11:20)
[2025-04-16] MEDS: Loratidine 10 MG TAB PO (11:20)
[2025-04-16] MEDS: Aspirin 81 MG CHEW PO (11:20)
[2025-04-16] MEDS: Methocarbamol 500 MG TAB PO ×2 (11:20→14:29)
[2025-04-16] MEDS: Ascorbic Acid 500 MG TAB PO (11:20)
[2025-04-16] MEDS: Clopidogrel 75 MG TAB PO (11:20)
[2025-04-16] MEDS: Enoxaparin 40 MG/0.4 ML SYR SC (11:21)
[2025-04-16] MEDS: Montelukast 10 MG TAB PO (11:21)
[2025-04-16] MEDS: Enalapril 5 MG TAB PO ×2 (11:28→15:31)
--- NOTE | 2025-04-16 14:24 | DSE_ITS ---
Date of service: 04/16/25 Time of Service: 14:25 DS: Diagnosis Discharge Diagnosis (1) CVA (cerebral vascular accident): Status: Chronic (2) Diabetes: Status: Acute (3) Vertigo: Status: Acute (4) Nausea & vomiting: Status: Acute (5) Holosystolic murmur: Status: Acute Discharge Plan Disposition Patient Disposition: Home Condition: Improving Discharge Details Reason For Visit: CVA Admit Date/Time: 04/15/25 10:28 Admit Provider: Ludwin Hartman Attending Provider: Ludwin Hartman Primary Care Provider: Marina Yi Hospital Course Hospital Course: This 75 year old female patient was admitted with acute onset of nausea, vomiting, diaphoresis, and vertigo. She has a past medical history of hypertension, diabetes, benign paroxysmal positional vertigo, and a known holosystolic murmur. Initial neurological exams were unremarkable (NIHSS 0), but MRI revealed an acute right cerebellar infarct with chronic microvascular changes. CT/CTA showed no large vessel occlusion. During hospitalization: * Neuro checks were performed per protocol. * Permissive hypertension maintained for first 24 hours. * Electrolytes corrected for low magnesium (1.6 mg/dL) and calcium (8.0 mg/dL). * Nausea and vertigo managed with antiemetics and hydration. * Diabetes managed with sliding scale insulin and ACHS fingersticks; home medications held. * Bubble echocardiogram ordered to evaluate for embolic source. * PT/OT evaluations initiated for mobility and safety. Patient remained clinically stable, tolerated oral intake, and symptoms improved. Pertinent Labs & Imaging * Labs: Mild anemia (Hgb 10.8 g/dL), glucose 280 mg/dL, Ca 8.0 mg/dL, Mg 1.6 mg/dL * MRI brain: Acute right cerebellar infarct * CT/CTA head/neck: No large vessel occlusion Discharge Medications * -S-t-a-r-t- -H-w-q-v-i-x- -7-5- -m-g- -d-a-i-l-y-,- -f-h-v-i-r-i-n- -8-1- -m-g- -d-a-i-l-y- -a-n-d- -j-b-m-z-p-d-s-n-6-a-t-i-n- Continue home medications unless otherwise specified: * Continue metformin and glipizide; follow up with PCP. * Antihypertensives, vitamins, and other chronic medications. * PRN antiemetics for nausea/vertigo (e.g., ondansetron). Follow-Up * Primary Care: within 1 week * Neurology: within 2?4 weeks for stroke follow-up * Cardiology: for evaluation of holosystolic murmur and review of bubble study results * PT/OT: Continue outpatient therapy as indicated Discharge Instructions * Monitor for recurrence of stroke symptoms (sudden weakness, facial droop, speech changes) ? Call 911 immediately * Maintain hydration and nutrition; small frequent meals for nausea * Fall precautions: avoid sudden head movements, rise slowly from lying/sitting * Blood glucose monitoring at home; log results * Resume activity as tolerated with supervision Home Meds and New Rx's Prescriptions: New atorvastatin 40 mg Tablet 80 mg PO QPM Qty: 30 0RF clopidogrel 75 mg Tablet 75 mg PO DAILY Qty: 30 0RF aspirin 81 mg Tablet,Chewable 81 mg PO DAILY 21 Days Qty: 21 0RF Continued ascorbic acid (vitamin C) 500 mg capsule 500 mg PO DAILY multivit with min-folic acid 0.4 mg tablet 1 tab PO DAILY glipizide 2.5 mg tablet extended release 24hr 2.5 mg PO DAILY montelukast 10 mg tablet 10 mg PO DAILY cyanocobalamin (vitamin B-12) [Vitamin B-12] 1,000 mcg Tablet 1,000 mcg PO DAILY calcium carbonate [Calcium 500] 500 mg calcium (1,250 mg) Tablet 500 mg PO DAILY metformin 1,000 mg Tablet 1,000 mg PO BID magnesium oxide 400 mg (241.3 mg magnesium) tablet 400 mg PO HS PRN Patient Comments: TAKE 1 TABLET BY MOUTH AT BEDTIME loratadine 10 mg tablet 10 mg PO DAILY Patient Comments: TAKE 1 TABLET BY MOUTH ONCE DAILY enalapril maleate 5 mg tablet 5 mg PO DAILY Patient Comments: TAKE 1 TABLET BY MOUTH ONCE DAILY lidocaine [Lidoderm] 5 % adhesive patch,medicated 1 patch topical DAILY Qty: 15 0RF Rx Instructions: leave on most painful area for up to 12 hrs Discontinued lovastatin 20 mg Tablet 20 mg PO DAILY methocarbamol 500 mg tablet 500 mg PO TID Qty: 20 0RF Discharge Instructions Referrals: [facility] [place] [Outside] Referral Note: Post CVA: Plavix, ASA x 21d, atorvastatin Marina Yi [Primary Care Provider, Medicine] Referral Note: 1-2 weeks post hospitalization for CVA Activity:: Activity as Tolerated Equipment/Supplies:: No Equipment Needed Diet:: Low Sodium Discharge Orders Discharge Orders: Discharge Order (Routine); Ordered 04/16/25 Ordered By: Joan Tejeda DS: Data Vitals/I&O Vitals and I&O: Vital Signs Temperature 36.5 C 04/16/25 11:00 Temperature Source Temporal Artery Scan 04/16/25 11:00 Pulse 107 H 04/16/25 11:00 Pulse Rhythm Regular 04/15/25 12:12 Respiratory Rate 16 04/16/25 11:00 Respiratory Effort Normal, Non-Labored 04/15/25 12:12 Respiratory Depth Normal 04/15/25 12:12 Respiratory Pattern Normal 04/15/25 12:12 Blood Pressure 180/83 H 04/16/25 11:00 Blood Pressure Mean 115 04/16/25 11:00 Blood Pressure Position Supine 04/15/25 04:11 Pulse Oximetry 98 04/16/25 11:00 Oxygen Delivery Method Room Air 04/16/25 11:00 Oxygen Flow Rate 0 04/16/25 11:00 Pain Level 3 04/16/25 11:20 Comment RN in room 04/15/25 16:06 Intake & Output 04/15/25 04/16/25 04/16/25 23:59 11:59 23:59 Intake Total 240 / 840 450 / 450 Output Total 100 / 100 50 / 50 Balance 140 / 740 -50 / 400 450 / 400 Weight 76.3 kg Intake: Oral 240 / 240 450 / 450 Output: Emesis 100 / 100 50 / 50 Other: Urine Color Yellow Yellow Urine Appearance Clear Clear Urine Odor Normal Normal Emesis Description Bile Data Completed and Pending Labs on day of discharge: Labs from last 24 hours 04/16/25 04/16/25 Unknown 06:20 WBC 15.81 H RBC 4.37 Hgb 12.9 D Hct 38.4 MCV 88 MCH 29.5 MCHC 33.6 RDW 12.7 Plt Count 301 MPV 11.3 H Immature Gran % 0.4 Neutrophils % 87.6 Lymphocytes % 7.6 Monocytes % 4.2 Eosinophils % 0.0 Basophils % 0.2 Nucleated RBC % 0.0 Absolute Neutrophils 13.85 H Absolute Lymphocytes 1.20 Absolute Monocytes 0.66 Absolute Eosinophils 0.00 Absolute Basophils 0.03 Sodium 134 L Potassium 3.5 Chloride 98 Carbon Dioxide 23.2 Anion Gap 12.8 H BUN 13 Creatinine 0.7 Est GFR (CKD-EPI 2020) 89.58 Glucose 310 H Calcium 8.9 Magnesium 1.9 Add-On Test Request Pending [facility] All Active Problems (Updated 04/15/25 @ 14:01 by Joan Tejeda NP) CVA (cerebral vascular accident) (Chronic) Vertigo (Acute) Nausea & vomiting (Acute) Disorder of the skin and subcutaneous tissue, unspecified (Acute) Diarrhea (Acute) Abdominal bloating (Acute) Diverticula of colon (Acute) Holosystolic murmur (Acute) Benign paroxysmal positional vertigo of right ear (Acute) Perforation of left tympanic membrane (Acute) Lipoma of chest wall (Acute) Mixed conductive and sensorineural hearing loss of left ear with restricted hearing of right ear (Acute) Sensorineural hearing loss (SNHL) of right ear with restricted hearing of left ear (Acute) Otitis externa (Acute) Hyperlipidemia (Acute) Diabetes (Acute) fd: 130's Tendinitis of right wrist (Chronic) Medical History (Updated 04/15/25 @ 14:01 by Joan Tejeda NP) Pain in joint of left shoulder Type 2 diabetes mellitus without complication Digestive system finding Family history of malignant neoplasm of digestive organ Heart murmur Cramp in lower leg associated with rest Spondylosis Disorder of breast Cholelithiasis without obstruction Disorder of lung Seasonal allergic rhinitis Essential hypertension Polyneuropathy Benign neoplasm of adrenal gland Migraine headache with aura Gallstones Seasonal allergies Gross hematuria Pulmonary nodule Adrenal adenoma 2020 incidental Breasts asymmetrical Abdominal pain Soft tissue mass Hx of solitary pulmonary nodule pt. reports couple Osteopenia Degenerative joint disease Hx of cardiac murmur per. pt. states her PCP told her this Surgical History (Updated 12/10/24 @ 14:21 by Clarissa Shields RN) History of colonoscopy S/P laparoscopic cholecystectomy History of surgery on right wrist Hx of removal of cyst Left upper arm Hx of tonsillectomy Family History (Updated 12/10/24 @ 14:33 by Clarissa Shields RN) Paternal Grandmother Myocardial infarction Paternal Grandfather Suicide Father Myocardial infarction Glaucoma Alcohol use disorder Mother Emphysematous bleb Diabetes Sister Fibromyalgia Sister Manic-depression Sister Manic-depression Brother , age 5 Muscular dystrophy Brother , age 28 Myocardial infarction Brother Hyperlipidemia Maternal Grandmother Cerebral hemorrhage Maternal Grandfather Colon cancer Social History Smoking/Tobacco Use Status: Never Smoking risk assessment performed?: Yes Alcohol Intake: current Alcohol Intake frequency: holidays/special occasions only Drug use: Never Substance use type: does not use Housing: house Current gender identity: female Do you feel safe at home: Yes Do you feel safe in your relationship?: Yes Additional Social history: [employer]
[2025-04-16 14:27] LABS: Lab Add On Test DONE
--- NOTE | 2025-04-16 14:38 | W.PM.PROGNOT ---
Date of Service Date of service: 04/16/25 Time of Service: 14:42 Assessment and Plan Assessment and plan (1) CVA (cerebral vascular accident): Status: Chronic Assessment and plan: Acute right cerebellar infarct Admit for acute stroke management Neuro checks per protocol Supportive care for nausea and vertigo (antiemetics, hydration) PT/OT as tolerated - PT recommends at least another day in hospital for teaching pt and ; then OP PT Echocardiogram- Mild concentric left ventricular hypertrophy with normal systolic function (EF 60?65%) and normal wall motion. Right ventricle is normal in size and function. Both atria are normal in size. Atrial septum is thin and hypermobile with a trace [id number] shunt. Aortic valve is trileaflet with sclerosis, no stenosis or regurgitation. Mitral valve demonstrates annular calcification with mild mitral regurgitation. Continue home antihtn today Mild concentric LV hypertrophy: Likely related to chronic hypertension; start optimal blood pressure control. Increase enalapril to 10 mg daily (BP's 180/83, 190/87, 191/92 - permissive htn for 24h which has now passed. (2) Diabetes: Status: Acute Assessment and plan: Continue home meds A1c 8.9 SSI/FS ACHS (3) Vertigo: Status: Acute Assessment and plan: No longer vomiting; tolerating food Monitor electrolytes; correct magnesium/calcium (4) Nausea & vomiting: Status: Resolved (5) Holosystolic murmur: Status: Acute Subjective Subjective Patient reports: no new complaints, tolerating liquids well, tolerating a regular diet, voiding w/o difficulty, bowel movement and afebrile; denies nausea Exam Narrative Exam Narrative: General: Alert, non-toxic, well-nourished Head/Neck: Normocephalic, atraumatic, neck supple, trachea midline ENT: Dry mucous membranes, no lesions Cardiac: RRR, holosystolic murmur Respiratory: CTAB, no distress Abdomen: Soft, non-distended, non-tender : No CVA or suprapubic tenderness Extremities: No deformities, no edema Neuro: GCS 15, cranial nerves II-XII intact, motor 5/5, sensation intact, coordination normal, no pronator drift, NIHSS 0 Gait/Station: Not tested - working with PT; somewhat unsteady and they recommend another day in hospital for teaching pt and Objective Last Vital Signs Temp 36.5 C 04/16/25 11:00 Pulse 107 H 04/16/25 11:00 Resp 16 04/16/25 11:00 BP 180/83 H 04/16/25 11:00 Pulse Ox 98 04/16/25 11:00 Laboratory Results - last 24 hr 04/16/25 04/16/25 06:20 Unknown WBC 15.81 H RBC 4.37 Hgb 12.9 D Hct 38.4 MCV 88 MCH 29.5 MCHC 33.6 RDW 12.7 Plt Count 301 MPV 11.3 H Immature Gran % 0.4 Neutrophils % 87.6 Lymphocytes % 7.6 Monocytes % 4.2 Eosinophils % 0.0 Basophils % 0.2 Nucleated RBC % 0.0 Absolute Neutrophils 13.85 H Absolute Lymphocytes 1.20 Absolute Monocytes 0.66 Absolute Eosinophils 0.00 Absolute Basophils 0.03 Sodium 134 L Potassium 3.5 Chloride 98 Carbon Dioxide 23.2 Anion Gap 12.8 H BUN 13 Creatinine 0.7 Est GFR (CKD-EPI 2020) 89.58 Glucose 310 H Calcium 8.9 Magnesium 1.9 Add-On Test Request DONE Time Spent with Patient Time Spent with Patient: 25-34 minutes Time was spent: preparing to see the patient(eg.review tests), ordering medications,tests, procedures, referring, communicating with other health anesthesiologist and critical care, indepentently interpreting results, counseling the patient and care coordination
[2025-04-16 14:57] LABS: Hemoglobin A1C 8.9 % (<5.7)
[2025-04-16 15:39] VITALS: BP 169/78; PULSE 103; RESP 20; TEMP 36.6; O2SAT 95
--- NOTE | 2025-04-16 17:20 | CHAPLAIN ---
I had a brief visit with La, explained my role and offered support. She had a visitor with her.
[2025-04-16 18:40] VITALS: BP 158/87; PULSE 100; RESP 18; TEMP 36.1; O2SAT 99
[2025-04-16] MEDS: Atorvastatin 40 MG TAB 80 MG PO (20:00)
[2025-04-17 01:13] VITALS: BP 171/82; PULSE 101; RESP 16; TEMP 37.1; O2SAT 94
[2025-04-17 06:45] LABS: Abs Immature Grans 0.05 10^3/uL (0.0-0.06); HCT 41.6 % (36.0-46.0); HGB 14.0 g/dL (11.2-15.7); Immature Grans % 0.3 %; MCH 29.5 pg (27.0-33.0); MCHC 33.7 % (32.0-36.0); MCV 88 fL (80-95); MPV 11.3 fL (8.0-11.0); Platelet Count 341 10^3/uL (130-400); RBC 4.75 10^6/uL (3.93-5.22); RDW 12.7 % (11.7-14.6); RDW-SD 40.9 fL; WBC 15.28 10^3/uL (4.4-10.8)
[2025-04-17 07:03] LABS: Anion Gap 11.6 mmol/L (3-11); BUN 16 mg/dL (7-18); CO2 24.4 mmol/L (21.0-32.0); Calcium 9.3 mg/dL (8.5-10.1); Chloride 100 mmol/L (98-107); Estimated GFR 89.58 (mL/min/1.73m2); Glucose 272 mg/dL (74-106); Magnesium 1.9 mg/dL (1.8-2.4); Potassium 3.4 mmol/L (3.5-5.1); Sodium 136 mmol/L (136-145)
[2025-04-17 07:26] VITALS: BP 138/82; PULSE 106; TEMP 36.4; O2SAT 97
[2025-04-17] MEDS: Enoxaparin 40 MG/0.4 ML SYR SC (07:44)
[2025-04-17] MEDS: Enalapril 5 MG TAB 10 MG PO (07:45)
[2025-04-17] MEDS: Calcium Carbonate *TUMS* 500 MG CHEW PO (07:45)
[2025-04-17] MEDS: Cyanocobalamin 500 MCG TAB 1000 MCG PO (07:45)
[2025-04-17] MEDS: Multivitamin w/Minerals TAB 1 TAB PO (07:45)
[2025-04-17] MEDS: Loratidine 10 MG TAB PO (07:46)
[2025-04-17] MEDS: Aspirin 81 MG CHEW PO (07:46)
[2025-04-17] MEDS: Clopidogrel 75 MG TAB PO (07:46)
[2025-04-17] MEDS: Methocarbamol 500 MG TAB PO ×2 (07:46→13:50)
[2025-04-17] MEDS: Ascorbic Acid 500 MG TAB PO (07:46)
[2025-04-17] MEDS: Montelukast 10 MG TAB PO (07:46)
[2025-04-17] MEDS: Lidocaine 5% Patch 1 PATCH TP (07:46)
[2025-04-17] MEDS: Insulin Aspart 300 UNITS/3 ML PEN SC ×2 (07:47→12:13)
[2025-04-17] MEDS: Normal Saline Flush 10 ML SYR IVP (07:47)
--- NOTE | 2025-04-17 08:29 | W.CARDCONSUL ---
Date of service: 04/17/25 Time of Service: : Assessment and Plan Assessment and plan (1) CVA (cerebral vascular accident): Status: Chronic Assessment and plan: Patient is status post stroke. In this age group it is actually not recommended to do bubble studies, as per my discussions with neurology no one will fix a PFO in the elderly. Statistically her mechanism of stroke is much more likely to be related to atherosclerosis or paroxysmal atrial fibrillation. She should be on lipid-lowering therapy, antiplatelet therapy. She should have a 30-day event monitor on discharge looking for PAF. If atrial fibrillation is documented, anticoagulation should be started History of Present Illness Narrative: This is a 75-year-old woman who was admitted to the hospital with a cerebellar stroke. As part of her evaluation she had an echocardiogram performed which suggested a small [id number] shunt. On that basis cardiac evaluation was requested. Additional testing included head and neck CTA, demonstrating some atherosclerosis but no major findings. Patient is progressing with physical therapy and discharge is planned when she is able to ambulate without issue Patient is sitting in the chair, currently has no complaints Review of Systems Narrative: Notes right lower quadrant pain, says she has a lidocaine patch PFS All Active Problems (Updated 04/17/25 @ 08:31 by Jen Tsai MD) CVA (cerebral vascular accident) (Chronic) Vertigo (Acute) Disorder of the skin and subcutaneous tissue, unspecified (Acute) Diarrhea (Acute) Abdominal bloating (Acute) Diverticula of colon (Acute) Holosystolic murmur (Acute) Benign paroxysmal positional vertigo of right ear (Acute) Perforation of left tympanic membrane (Acute) Lipoma of chest wall (Acute) Mixed conductive and sensorineural hearing loss of left ear with restricted hearing of right ear (Acute) Sensorineural hearing loss (SNHL) of right ear with restricted hearing of left ear (Acute) Otitis externa (Acute) Hyperlipidemia (Acute) Diabetes (Acute) fd: 130's Tendinitis of right wrist (Chronic) Medical History (Updated 04/17/25 @ 08:31 by Jen Tsai MD) Pain in joint of left shoulder Type 2 diabetes mellitus without complication Digestive system finding Family history of malignant neoplasm of digestive organ Heart murmur Cramp in lower leg associated with rest Spondylosis Disorder of breast Cholelithiasis without obstruction Disorder of lung Seasonal allergic rhinitis Essential hypertension Polyneuropathy Benign neoplasm of adrenal gland Migraine headache with aura Gallstones Seasonal allergies Gross hematuria Pulmonary nodule Adrenal adenoma 2020 incidental Breasts asymmetrical Abdominal pain Soft tissue mass Hx of solitary pulmonary nodule pt. reports couple Osteopenia Degenerative joint disease Hx of cardiac murmur per. pt. states her PCP told her this Surgical History (Updated 12/10/24 @ 14:21 by Clarissa Shields RN) History of colonoscopy S/P laparoscopic cholecystectomy History of surgery on right wrist Hx of removal of cyst Left upper arm Hx of tonsillectomy Family History (Updated 12/10/24 @ 14:33 by Clarissa Shields RN) Paternal Grandmother Myocardial infarction Paternal Grandfather Suicide Father Myocardial infarction Glaucoma Alcohol use disorder Mother Emphysematous bleb Diabetes Sister Fibromyalgia Sister Manic-depression Sister Manic-depression Brother , age 5 Muscular dystrophy Brother , age 28 Myocardial infarction Brother Hyperlipidemia Maternal Grandmother Cerebral hemorrhage Maternal Grandfather Colon cancer Social History Smoking/Tobacco Use Status: Never Smoking risk assessment performed?: Yes Alcohol Intake: current Alcohol Intake frequency: holidays/special occasions only Drug use: Never Substance use type: does not use Housing: house Current gender identity: female Do you feel safe at home: Yes Do you feel safe in your relationship?: Yes Additional Social history: UTAP Exam Const Other: Well-developed well-nourished looks younger than stated age no acute distress Neck Other: Neck veins are flat carotid pulsations are normal there are no bruits Resp Auscultation: clear to auscultation bilaterally Cardio Other: Heart is regular brief systolic murmur Extrem Other: No significant edema Results Last Vital Signs Temp 36.4 C L 04/17/25 07:26 Pulse 106 H 04/17/25 07:26 Resp 16 04/17/25 01:13 BP 138/82 04/17/25 07:26 Pulse Ox 97 04/17/25 07:26 Labs 04/17/25 06:23 04/17/25 06:23 Labs: Laboratory Results - last 24 hr 04/16/25 04/16/25 04/17/25 06:20 Unknown 06:23 WBC 15.28 H RBC 4.75 Hgb 14.0 Hct 41.6 MCV 88 MCH 29.5 MCHC 33.7 RDW 12.7 Plt Count 341 MPV 11.3 H Immature Gran % 0.3 Neutrophils % 73.8 Lymphocytes % 16.9 Monocytes % 8.2 Eosinophils % 0.5 Basophils % 0.3 Nucleated RBC % 0.0 Absolute Neutrophils 11.28 H Absolute Lymphocytes 2.58 Absolute Monocytes 1.25 H Absolute Eosinophils 0.08 Absolute Basophils 0.05 Sodium 136 Potassium 3.4 L Chloride 100 Carbon Dioxide 24.4 Anion Gap 11.6 H BUN 16 Creatinine 0.7 Est GFR (CKD-EPI 2020) 89.58 Glucose 272 H Hemoglobin A1c 8.9 H Calcium 9.3 Magnesium 1.9 Add-On Test Request DONE
--- NOTE | 2025-04-17 10:21 | PGE_ITS ---
Assessment and Plan Assessment and plan (1) CVA (cerebral vascular accident): Status: Chronic Assessment and plan: Acute right cerebellar infarct * Admit for acute stroke management * Neuro checks per protocol * Supportive care for nausea and vertigo (antiemetics, hydration) * PT/OT as tolerated - PT recommends at least another day in hospital for teaching pt and ; then OP PT * Echocardiogram- Mild concentric left ventricular hypertrophy with normal systolic function (EF 60?65%) and normal wall motion. Right ventricle is normal in size and function. Both atria are normal in size. Atrial septum is thin and hypermobile with a trace [id number] shunt. Aortic valve is trileaflet with sclerosis, no stenosis or regurgitation. Mitral valve demonstrates annular calcification with mild mitral regurgitation. * Continue home antihtn today Mild concentric LV hypertrophy: Likely related to chronic hypertension; start optimal blood pressure control. * Increase enalapril to 10 mg daily (BP's 180/83, 190/87, 191/92 - permissive htn for 24h which has now passed. (2) Diabetes: Status: Acute Assessment and plan: Continue home meds A1c 8.9 SSI/FS ACHS (3) Vertigo: Status: Acute Assessment and plan: No longer vomiting; tolerating food Monitor electrolytes; correct magnesium/calcium (4) Nausea & vomiting: Status: Resolved (5) Holosystolic murmur: Status: Acute Objective Last Vital Signs Temp 36.4 C L 04/17/25 07:26 Pulse 106 H 04/17/25 07:26 Resp 16 04/17/25 01:13 BP 138/82 04/17/25 07:26 Pulse Ox 97 04/17/25 07:26 Laboratory Results - last 24 hr 04/16/25 04/16/25 04/17/25 06:20 Unknown 06:23 WBC 15.28 H RBC 4.75 Hgb 14.0 Hct 41.6 MCV 88 MCH 29.5 MCHC 33.7 RDW 12.7 Plt Count 341 MPV 11.3 H Immature Gran % 0.3 Neutrophils % 73.8 Lymphocytes % 16.9 Monocytes % 8.2 Eosinophils % 0.5 Basophils % 0.3 Nucleated RBC % 0.0 Absolute Neutrophils 11.28 H Absolute Lymphocytes 2.58 Absolute Monocytes 1.25 H Absolute Eosinophils 0.08 Absolute Basophils 0.05 Sodium 136 Potassium 3.4 L Chloride 100 Carbon Dioxide 24.4 Anion Gap 11.6 H BUN 16 Creatinine 0.7 Est GFR (CKD-EPI 2020) 89.58 Glucose 272 H Hemoglobin A1c 8.9 H Calcium 9.3 Magnesium 1.9 Add-On Test Request DONE
--- NOTE | 2025-04-17 11:18 | PTTR_ITS ---
PT Notes Visit Reasons: Cerebrovascular accident Physical Therapy Inpatient Treatment Note Date: 04/17/2025 Precautions: Fall. Standard. Activity as tolerated. Subjective: Feels much better but remains minimally vertiginous.. Okay with OP PT services. Objective: General Observation: Resting in bed. Husbnad in room. IV through the L UE. Mental Status: Alert and oriented as to person, place, time, and purpose. Able to pay attention, focus, and respond appropriately. Pain: As above Vital Signs: Closely monitored by nursing staff Bed Mobility/Transfers: iInimal cueing provided for use of B hands as needed for support, movement sequence, AD management, and posture to reduce fall risk and minimize pain report Rolling stand by assist Supine to sit stand by assist Sit to supine stand by assist Sit to stand stand by assist with FWW Stand to sit stand by assist with FWW Bed to toilet stand by assist with FWW Toliet seat to bed stand by assist with FWW Bed to reclining chair stand by assist with FWW Gait: Facilitated step through gait pattern covering a distance of 300 feet from patient's room to the therapy room and back using the front-wheeled walker. Stand by assist provided. Step length improving with much improved alternating pattern. Stairs: Navigated 6 x 4-inch steps and 4 x 6-inch steps while holding onto B rails for support, contcat guard assist provided. Minimal verbal cueing for technique and hand placement onto B rails. Balance: Static Sitting: Normal Dynamic Sitting: Normal Static Standing: Fair Dynamic Standing: Fair THERA ACT: Facilitated balance awareness over stable solid and predictable bas (tiled floor) for progressive skill development and non-stable base (Airex mat) to challenge proprioception and recruit stabilizing muscles by providing a shifting or compressible base.?Patient was asked to perform this close to a wall outside the PT room first with B feet shoulder width apart and then with one foot ahead of the other with a rail close by for safety. Patient was also provided with cues as to safe performance of walking without assistive device and with use of the front-wheeled walker. Activities included: Walking forward without AD x 15 steps, CGA of PT, 3 sets Walking sideways without AD x 15 steps, CGA of PT, 3 sets Walking backwards x 15 steps x 15 steps, min A of PT Airex mat, static standing unsupported for 1 minutes x 3 sets Airex mat, side to side shift unsupported with B feet shoulder-width apart x 10 Airex mat, front-back weight shift unsupported with B feet shoulder-width apart with L foot minimally forward x 10 Airex mat, partial knee bends B feet sh width unsupported part x 10 Assessment: Remains minimally vertiginous. FWW needed for improved stability and walking pattern. Patient with symmetric generalized weakness in B UE/LE. Rapid alternating movement intact. Step length much improved and alternating, less hesitant. Patient demonstrated functional mobility decline now needing a front- wheeled walker for all mmobility ADL performance for increased stability Symptom of dizziness may also be attributed to area of brain affectation but BP has been in the high range of up to 188/92 mmHg after the walk from her room to the therapy room with some incrase in dizziness report. Plan of Care/Treatment Plan: 1-2x/day, 7 days/week x 1 week. Plan of care has been reviewed with the NEON TECHNICIAN providing the service under Physical Therapy direction. Initiate Physical Therapy intervention for pain management as needed, strengthening, bed mobility, transfers, gait, stairs, balance training, and use of assistive device. DISCHARGE RECOMMENDATIONS: Patient will benefit from OP PT for neurologic/vestibular rehabilitation to address symptoms of R cerebellar CVA. TREATMENT CODE/TIME: 33005 x 39 minutes for 3 units (11:18-11:57).
[2025-04-17 11:34] LABS: Lab Add On Test DONE
[2025-04-17 11:53] LABS: Calculated LDL 106 mg/dL (<100); Cholesterol 198 mg/dL (<200); HDL Cholesterol 68 mg/dL (>or=50); Triglyceride 122 mg/dL (<150)
--- NOTE | 2025-04-17 13:14 | DSE_ITS ---
Date of service: 04/17/25 Time of Service: 13:14 DS: Diagnosis Discharge Diagnosis (1) CVA (cerebral vascular accident): Status: Chronic (2) Diabetes: Status: Acute (3) Vertigo: Status: Acute (4) Nausea & vomiting: Status: Resolved (5) Holosystolic murmur: Status: Acute Discharge Plan Disposition Patient Disposition: Home Condition: Improving Discharge Details Reason For Visit: CVA Admit Date/Time: 04/15/25 10:28 Admit Provider: Ludwin Hartman Attending Provider: Ludwin Hartman Primary Care Provider: Marina Yi [place] [facility] Hospital Course: This 75 year old female patient with a past medical history of hypertension, diabetes, benign paroxysmal positional vertigo, and a known holosystolic murmur presented to the ED on 04/15/2025 for evaluation of acute onset of nausea, vomiting, diaphoresis, and vertigo. She has a. Initial neurological exams were unremarkable (NIHSS 0), CT/CTA were negative acute/ actinable findings but MRI revealed an acute right cerebellar infarct with chronic microvascular changes. The patient was admitted to medical surgical floor with telemetry by the hospitalist for further evaluation and management of acute CVA. High intensity statin, ASA and clopidogrel initiated and to be continued upon discharge. Cardiology consultation completed with recommendations for regular echocardiogram, statin, antiplatelets, 30-day hand flesher. Physical therapy recommendation is for outpatient PT for neurologic/vestibular rehabilitation to address symptoms of R cerebellar CVA. Nausea and vertigo were managed with antiemetics and hydration.The patient will be discharged home with a neurology referral, and a follow-up with her PCP within 7 days of discharge. On the day of discharge the patient was hemodynamically stable and afebrile. Echocardiogram conclusions: Mild concentric left ventricular hypertrophy. Ejection fraction is 60 to 65%. Wall motion is normal Normal right ventricular size and function Both atria are normal in size The atrial septum is thin and hypermobile. There appears to be a tiny amount of [id number] shunting Aortic valve is sclerotic and trileaflet without stenosis or regurgitation Mitral annular calcification. Mild mitral regurgitation Discharge Instructions * Monitor for recurrence of stroke symptoms (sudden weakness, facial droop, speech changes) ? Call 911 immediately * Maintain hydration and nutrition; small frequent meals for nausea * Fall precautions: avoid sudden head movements, rise slowly from lying/sitting * Blood glucose monitoring at home; log results * Resume activity as tolerated with supervision Discussed with Dr. Hartman Recommendations for Follow Up Recommended tests to be ordered by follow up provider: SSI coverage Lispro 24 units/24 hours consider transitioning to Lantus SC daily bolus with oral antihyperglycemic drug adjustment - A1C 8.9, LDL 106 Home Meds and New Rx's Prescriptions: New atorvastatin 40 mg Tablet 80 mg PO QPM Qty: 30 0RF clopidogrel 75 mg Tablet 75 mg PO DAILY Qty: 30 0RF aspirin 81 mg Tablet,Chewable 81 mg PO DAILY 21 Days Qty: 21 0RF docusate sodium 100 mg capsule 100 mg PO DAILY Qty: 30 0RF Rx Instructions: Take as needed once you have a bowel movement ondansetron 4 mg tablet,disintegrating 4 mg PO Q8H PRNQty: 14 0RF Continued ascorbic acid (vitamin C) 500 mg capsule 500 mg PO DAILY multivit with min-folic acid 0.4 mg tablet 1 tab PO DAILY glipizide 2.5 mg tablet extended release 24hr 2.5 mg PO DAILY montelukast 10 mg tablet 10 mg PO DAILY cyanocobalamin (vitamin B-12) [Vitamin B-12] 1,000 mcg Tablet 1,000 mcg PO DAILY calcium carbonate [Calcium 500] 500 mg calcium (1,250 mg) Tablet 500 mg PO DAILY metformin 1,000 mg Tablet 1,000 mg PO BID magnesium oxide 400 mg (241.3 mg magnesium) tablet 400 mg PO HS PRN Patient Comments: TAKE 1 TABLET BY MOUTH AT BEDTIME loratadine 10 mg tablet 10 mg PO DAILY Patient Comments: TAKE 1 TABLET BY MOUTH ONCE DAILY enalapril maleate 5 mg tablet 5 mg PO DAILY Patient Comments: TAKE 1 TABLET BY MOUTH ONCE DAILY lidocaine [Lidoderm] 5 % adhesive patch,medicated 1 patch topical DAILY Qty: 15 0RF Rx Instructions: leave on most painful area for up to 12 hrs Discontinued lovastatin 20 mg Tablet 20 mg PO DAILY methocarbamol 500 mg tablet 500 mg PO TID Qty: 20 0RF Discharge Instructions Stand Alone Forms: Nursing Discharge Form Referrals: [facility] [Outside] Referral Note: Post CVA: Plavix, ASA , atorvastatin Marina Yi [Primary Care Provider, Medicine] Referral Note: 1-2 weeks post hospitalization for CVA [facility] [Provider Group, Physical Therapy] Referral Note: outpatient PT for neurologic/vestibular rehabilitation to address symptoms of R cerebellar CVA. Activity:: Activity as Tolerated Equipment/Supplies:: No Equipment Needed Diet:: Low Sodium DS: Summary Time Spent with Patient providing and/or coordinating discharge services: Greater than 30 minutes Status at Discharge Functional status at discharge: uses cane/walker Overall status at discharge: patient is progressing back to baseline Mental Status: mental status grossly normal Speech and Movement: speech and movement normal Mood: congruent mood Affect: normal affect Exam Narrative Exam Narrative: General: Alert and oriented X3 without no acute distress. Neck: Trachea midline, ?Neck supple, no JVD . Cardiac: ?RRR, holosytolic murmur , SR HR 99 on telemetry Resp: Unlabored, CTAB. Abd: ?Non-distended, soft, nontender : ?No CVA tenderness. Extremities: ?No deformities.? No peripheral edema. Neuro: Cranial nerve II- XII intact? GCS 15.? PERRL.? EOMI.? Fluent speech, no dysarthria. Motor- 5/5 strength symmetric bilateral upper and lower extremities Sensation- ?Intact to light touch and symmetric multiple dermatomes including upper and lower extremities Coordination- No dysmetria on finger to nose. No pronator drift. Gait/station: deferred Psych Mental Status: mental status grossly normal Speech and Movement: speech and movement normal Mood: congruent mood Affect: normal affect DS: Data Vitals/I&O Vitals and I&O: Vital Signs Temperature 36.4 C L 04/17/25 07:26 Temperature Source Temporal Artery Scan 04/17/25 07:26 Pulse 106 H 04/17/25 07:26 Pulse Rhythm Regular 04/15/25 12:12 Respiratory Rate 16 04/17/25 01:13 Respiratory Effort Normal, Non-Labored 04/15/25 12:12 Respiratory Depth Normal 04/15/25 12:12 Respiratory Pattern Normal 04/15/25 12:12 Blood Pressure 138/82 04/17/25 07:26 Blood Pressure Mean 100 04/17/25 07:26 Blood Pressure Position Supine 04/15/25 04:11 Pulse Oximetry 97 04/17/25 07:26 Oxygen Delivery Method Room Air 04/17/25 07:26 Oxygen Flow Rate 0 04/17/25 07:26 Pain Level 3 04/16/25 11:20 Comment RN in room 04/15/25 16:06 Intake & Output 04/16/25 04/17/25 04/17/25 23:59 11:59 23:59 Intake Total 450 / 450 400 / 400 Balance 450 / 400 400 / 400 Intake: Oral 450 / 450 400 / 400 Other: Urine Color Yellow Comment not measured. Data Completed and Pending Labs on day of discharge: Labs from last 24 hours 04/17/25 04/17/25 04/16/25 11:33 06:23 Unknown WBC 15.28 H RBC 4.75 Hgb 14.0 Hct 41.6 MCV 88 MCH 29.5 MCHC 33.7 RDW 12.7 Plt Count 341 MPV 11.3 H Immature Gran % 0.3 Neutrophils % 73.8 Lymphocytes % 16.9 Monocytes % 8.2 Eosinophils % 0.5 Basophils % 0.3 Nucleated RBC % 0.0 Absolute Neutrophils 11.28 H Absolute Lymphocytes 2.58 Absolute Monocytes 1.25 H Absolute Eosinophils 0.08 Absolute Basophils 0.05 Sodium 136 Potassium 3.4 L Chloride 100 Carbon Dioxide 24.4 Anion Gap 11.6 H BUN 16 Creatinine 0.7 Est GFR (CKD-EPI 2020) 89.58 Glucose 272 H Hemoglobin A1c Calcium 9.3 Magnesium 1.9 Triglycerides 122 Total Cholesterol 198 LDL Cholesterol, Calc 106 H HDL Cholesterol 68 Add-On Test Request DONE DONE 04/16/25 06:20 WBC RBC Hgb Hct MCV MCH MCHC RDW Plt Count MPV Immature Gran % Neutrophils % Lymphocytes % Monocytes % Eosinophils % Basophils % Nucleated RBC % Absolute Neutrophils Absolute Lymphocytes Absolute Monocytes Absolute Eosinophils Absolute Basophils Sodium Potassium Chloride Carbon Dioxide Anion Gap BUN Creatinine Est GFR (CKD-EPI 2020) Glucose Hemoglobin A1c 8.9 H Calcium Magnesium Triglycerides Total Cholesterol LDL Cholesterol, Calc HDL Cholesterol Add-On Test Request PFSH All Active Problems (Updated 04/17/25 @ 08:31 by Jen Tsai MD) CVA (cerebral vascular accident) (Chronic) Vertigo (Acute) Disorder of the skin and subcutaneous tissue, unspecified (Acute) Diarrhea (Acute) Abdominal bloating (Acute) Diverticula of colon (Acute) Holosystolic murmur (Acute) Benign paroxysmal positional vertigo of right ear (Acute) Perforation of left tympanic membrane (Acute) Lipoma of chest wall (Acute) Mixed conductive and sensorineural hearing loss of left ear with restricted hearing of right ear (Acute) Sensorineural hearing loss (SNHL) of right ear with restricted hearing of left ear (Acute) Otitis externa (Acute) Hyperlipidemia (Acute) Diabetes (Acute) fd: 130's Tendinitis of right wrist (Chronic) Medical History (Updated 04/17/25 @ 08:31 by Jen Tsai MD) Pain in joint of left shoulder Type 2 diabetes mellitus without complication Digestive system finding Family history of malignant neoplasm of digestive organ Heart murmur Cramp in lower leg associated with rest Spondylosis Disorder of breast Cholelithiasis without obstruction Disorder of lung Seasonal allergic rhinitis Essential hypertension Polyneuropathy Benign neoplasm of adrenal gland Migraine headache with aura Gallstones Seasonal allergies Gross hematuria Pulmonary nodule Adrenal adenoma 2020 incidental Breasts asymmetrical Abdominal pain Soft tissue mass Hx of solitary pulmonary nodule pt. reports couple Osteopenia Degenerative joint disease Hx of cardiac murmur per. pt. states her PCP told her this Surgical History (Updated 12/10/24 @ 14:21 by Clarissa Shields RN) History of colonoscopy S/P laparoscopic cholecystectomy History of surgery on right wrist Hx of removal of cyst Left upper arm Hx of tonsillectomy Family History (Updated 12/10/24 @ 14:33 by Clarissa Shields RN) Paternal Grandmother Myocardial infarction Paternal Grandfather Suicide Father Myocardial infarction Glaucoma Alcohol use disorder Mother Emphysematous bleb Diabetes Sister Fibromyalgia Sister Manic-depression Sister Manic-depression Brother , age 5 Muscular dystrophy Brother , age 28 Myocardial infarction Brother Hyperlipidemia Maternal Grandmother Cerebral hemorrhage Maternal Grandfather Colon cancer Social History Smoking/Tobacco Use Status: Never Smoking risk assessment performed?: Yes Alcohol Intake: current Alcohol Intake frequency: holidays/special occasions only Drug use: Never Substance use type: does not use Housing: house Current gender identity: female Do you feel safe at home: Yes Do you feel safe in your relationship?: Yes Additional Social history: UTAP Time Spent with Patient Time Spent with Patient: 70-84 minutes4 Time was spent: preparing to see the patient(eg.review tests), obtaining and/or reviewing separately otained hiistory, ordering medications,tests, procedures, referring, communicating with other health long term acute care registered nurse, indepentently interpreting results, counseling the patient, care coordination and other
[2025-04-17 13:46] VITALS: BP 111/63; PULSE 110; RESP 17; TEMP 36; O2SAT 97
[2025-04-17] MEDS: Potassium Chloride 20 MEQ TABCR PO (13:49)
[2025-04-17] MEDS: Docusate Sodium 100 MG CAP PO (13:49)
--- NOTE | 2025-04-17 14:34 | CMDISCH_ITS ---
Date of service: 04/17/25 Time of Service: 14:34 LACE Index Scoring Tool Questions: Length of Stay (in days): 2 Was the patient admitted via the E.D.?: Yes Comorbidities: Cerebrovascular Disease and Diabetes w/o Complication E.D. Visits: 2 Answers: Total Score: 9 Risk of Readmission: Low Risk Care Management Discharge Plan Reason for Hospitalization: CVA Discharge Plan: La is discharged home via private vehicle with her . She will follow up with community providers and continue per the discharge plan as instructed. No [facility] services were ordered; outpatient PT is recommended. Patient/Family Education Needs: Review discharge instructions and plan to follow up after discharge. Discuss ask me three. Services Needed at Discharge: Outpatient Therapy ( Outpatient PT for neurologic/vestibilar rehab to address symptoms of Right Cerebellar CVA. )
--- NOTE | 2025-04-17 14:34 | PDOC.CMPRO ---
Date of service: 04/17/25 Time of Service: 14:34 Social Determinants of Health Screening Social Determinants of health last assessed in clinic: 04/16/25 Will the Patient Participate in the Screening?: Yes Do you worry about having a steady place to live?: no Problems where you live: no known problems In the past 12 months, have you had to go without electric, gas, oil or water in your home?: no Has lack of transportation kept you from medical appointments or from doing things needed for daily living?: no Has anyone in your life made you feel unsafe or unsupported?: no How hard is it for you to pay for the very basics like food, housing, medical care, and heating? Would you say it is:: Not hard at all Do you want help finding or keeping work or a job?: I do not need or want help If for any reason you need help with day-to-day activities such as bathing, preparing meals, shopping, managing finances, etc., do you get the help you need?: I get all the help I need How often do you feel lonely or isolated from those around you?: Never Do you speak a language other than [place] at home?: No Does the patient want assistance with any of the above?: No
--- NOTE | 2025-04-17 15:16 | W.INDIABCONS ---
Date of service: 04/17/25 Time of Service: 15:17 Diabetes Inpatient Consult Reason for Visit: diabetes mgt DESCRIPTION/ASSESSMENT: met with susi briefly yesterday. A1c was 8.9% 04/16, up from 8.3% january 2024. Does not check glucose at home. does not take glipizde ordered for home - she states is made her feel like I'm stretching out - distention? INTERVENTION: Suggested she talk to PCP at follow up (discharge anticipate shortly) about need for basal insulin as I feel this would help tremendously. compliance/ambivalence and low knowledge about glucose mgt seem to be a significant piece to her chronic high blood sugar. PLAN: gave my card but will call patient next week for phone follow up and to request she come to nutrition counseling to help better manage glucose Time Spent in Nutritional Counseling and Treatment: 35 min
== END 2025-04-17 14:37 | disposition home or self-care (01) ==
LOC: ER 07:52 → MS 12:29
PROVIDERS: Nurse Practitioner Family; Student in an Organized Health Care Education/Training Program; Admitting Provider Family Medicine; Emergency Provider General Practice; PCP Nurse Practitioner Family; Responsible Provider Nurse Practitioner Acute Care; Visit Provider Family Medicine
DX: I63.9 Cerebral infarction, unspecified (principal); R11.2 Nausea with vomiting, unspecified; R01.1 Cardiac murmur, unspecified; I08.0 Rheumatic disorders of both mitral and aortic valves; E11.65 Type 2 diabetes mellitus with hyperglycemia; E11.42 Type 2 diabetes mellitus with diabetic polyneuropathy; I10 Essential (primary) hypertension; R61 Generalized hyperhidrosis; K57.30 Diverticulosis of large intestine without perforation or abscess without bleeding; H81.11 Benign paroxysmal vertigo, right ear; E78.5 Hyperlipidemia, unspecified; D64.9 Anemia, unspecified; E83.42 Hypomagnesemia; E83.51 Hypocalcemia
CPT/HCPCS: 00123; 36415; 70496; 70498; 80048; 80053; 80061; 83690; 93005; 93306; 96365; 96372; 96375; 96376; 97162; 97530; 99222; 99285; J1650; 70551; 74177; 81003; 83036; 83605; 83735; 83880; 84484; 85025; 93010; 93970; 99231; 99239; G0378; J1815; J2405; J2765; J3475; J3490

== ENCOUNTER 2025-04-23 13:03 | Outpatient (CLI) | payer MEDICARE, SELFPAY | END 2025-04-23 13:04 | disposition home or self-care (01) | PROVIDERS: PCP Nurse Practitioner Family; Visit Provider Nurse Practitioner Family | DX: Z86.73 Personal history of transient ischemic attack (TIA), and cerebral infarction without residual deficits (principal) | CPT/HCPCS: 93270 ==

== ENCOUNTER 2025-05-19 15:34 | Outpatient (REF) | payer MEDICARE, SELFPAY ==
[2025-05-19 16:33] LABS: ALT 28 U/L (14-59); AST 20 U/L (15-37); Albumin 4.0 g/dL (3.4-5.0); Alkaline Phosphatase 83 U/L (46-116); Anion Gap 11.5 mmol/L (3-11); BUN 16 mg/dL (7-18); Bilirubin, Total 0.9 mg/dL (0.2-1.0); CO2 26.5 mmol/L (21.0-32.0); Calcium 9.3 mg/dL (8.5-10.1); Calculated LDL 41 mg/dL (<100); Chloride 102 mmol/L (98-107); Cholesterol 100 mg/dL (<200); Estimated GFR 76.31 (mL/min/1.73m2); Glucose 108 mg/dL (74-106); HDL Cholesterol 50 mg/dL (>or=50); Potassium 4.2 mmol/L (3.5-5.1); Sodium 140 mmol/L (136-145); Total Protein 6.9 g/dL (6.4-8.2); Triglyceride 46 mg/dL (<150)
== END 2025-05-19 15:35 | disposition home or self-care (01) ==
LOC: NCHCN 15:34
PROVIDERS: PCP Nurse Practitioner Family; Visit Provider Nurse Practitioner Family
DX: E11.65 Type 2 diabetes mellitus with hyperglycemia (principal)
CPT/HCPCS: 80053; 80061

== ENCOUNTER 2025-05-27 07:06 | Outpatient (CLI) | payer MEDICARE, SELFPAY ==
--- NOTE | 2025-05-27 10:05 | W.CARDEVENT ---
Date of service: 05/27/25 Time of Service: 10:05 Cardiac Event Recorder Referring Provider:: Marina Yi Indications:: Transient cerebral ischemia Cardiac Event Note: This is a cardiac event monitor. Patient was monitored for 15 days and 14 hours. Rhythm throughout was sinus. Average heart rate overall was 82. There was no significant bradycardia. Maximum heart rate was 114 There was no atrial fibrillation, no high-grade AV block, no pauses greater than 3 seconds, no significant ventricular dysrhythmias There did not appear to be any patient symptoms
== END 2025-05-27 07:07 | disposition home or self-care (01) ==
LOC: CARDOPNVT 07:06
PROVIDERS: PCP Nurse Practitioner Family; Visit Provider Internal Medicine Cardiovascular Disease
DX: G45.9 Transient cerebral ischemic attack, unspecified (principal)
CPT/HCPCS: 93272